=== PATIENT | male | born 1935 | race Caucasian/White ===

== ENCOUNTER 2021-10-19 10:45 | Outpatient (RCR) | payer MEDICARE, BC, SELFPAY | END 2022-01-11 12:08 | disposition home or self-care (01) | PROVIDERS: Visit Provider Student in an Organized Health Care Education/Training Program | DX: E11.40 Type 2 diabetes mellitus with diabetic neuropathy, unspecified (principal); I10 Essential (primary) hypertension; R26.9 Unspecified abnormalities of gait and mobility; M21.379 Foot drop, unspecified foot; Z51.89 Encounter for other specified aftercare | CPT/HCPCS: 97110; 97140 ==

== ENCOUNTER 2021-10-29 15:20 | Emergency (ER) | payer MEDICARE, BC, SELFPAY ==
[2021-10-29 15:35] VITALS: BP 159/86; PULSE 85; RESP 18; TEMP 36.1; O2SAT 94; BMI 31.2
--- NOTE | 2021-10-29 15:44 | CRLHL7_ITS ---
For Patients: As a result of the Cures Act, medical imaging exams and procedure reports are released immediately into your electronic medical record. You may view this report before your referring provider. If you have questions, please contact your health care provider. INDICATION: Fall. TECHNIQUE: Two views of the right forearm. COMPARISON: None. IMPRESSION: There is an acute, comminuted intra-articular fracture of the distal radius. This is impacted dorsally resulting in mild volar apex angulation. The distal right fracture fragment is also displaced dorsally by up to 1 cm. There is also a minimally displaced ulnar styloid fracture. Dictated by Dax Monique MD @ 10/29/2021 5:11:07 PM (Electronically Signed)
--- NOTE | 2021-10-29 15:54 | ED.GENADULT ---
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 He noticed gross deformity and he noted pain. He scraped his finger fingers in the dorsal PIP joint areas and has an abrasion over his ulna and a and medial wrist. There does not appear to be any open wounds. Other than the abrasions. He denies any headache neck pain back pain pelvic pain he has been ambulatory, no other injuries to the elbow or shoulder. He simply lost balance, did not pass out Related Data Home Medications Medication Instructions Recorded Confirmed eszopiclone 3 mg tablet mg 10/29/21 gabapentin 300 mg capsule mg 10/29/21 lisinopril 10 tab 10/29/21 mg-hydrochlorothiazide 12.5 mg tablet metformin 500 mg tablet,extended mg PO 10/29/21 release 24 hr omeprazole 20 mg capsule,delayed mg 10/29/21 release simvastatin 40 mg tablet mg 10/29/21 Allergies Allergy/AdvReac Type Severity Reaction Status Date / Time No Known Drug Allergies Allergy Verified 10/29/21 15:35 Review of Systems Status of ROS: Reports: 6 or more systems reviewed and unremarkable except as noted in History and below [facility] Medical History DM (diabetes mellitus), type 2 Hypertension Neuropathy Surgical History No significant past surgical history Social History Smoking Status: Former smoker What tobacco products do you use: cigarettes Do you use any of these nicotine containing products: None Second hand tobacco smoke exposure: Yes How often do you have a drink containing alcohol: 2-4 times a month How many standard drinks containing alcohol do you have on a typical day: 1 or 2 How often do you have six or more drinks on one occasion: Never AUDIT-C Alcohol total score: 2 Non-prescribed substance use: denies use Exam Narrative: Exam Narrative: Objective: Patient is alert orient x3 very pleasant Vital signs show slightly elevated blood pressure HEENT unremarkable no neck back upper lower extremities extremity symptoms other than his right wrist has a deformity noted there was an abrasion on the medial aspect of the wrist and small tiny abrasions over his finger at the PIP joints on the right hand. No lacerations, no open wounds that are deep. Distal CMS appears normal the right upper extremity and hand he has good strength good motion of his fingers, good radial pulse. He denies abdominal pain pelvic pain lower extremity symptoms. Const: Vital Signs, click to edit/add: Vital Signs - 24 hr 10/29/21 15:35 Temperature 96.9 F L Pulse Rate [Pulse Oximeter] 85 Respiratory Rate 18 Blood Pressure [Le ft Upper Arm] 159/86 H Pulse Oximetry 94 Oxygen Delivery Me thod Room Air Course Vital Signs Vital signs: Initial Vital Signs Temperature 96.9 F L 10/29/21 15:35 Temperature Source Temporal Artery Scan 10/29/21 15:35 Pulse Rate 85 10/29/21 15:35 Pulse Rhythm 10/29/21 15:35 Respiratory Rate 18 10/29/21 15:35 Blood Pressure 159/86 H 10/29/21 15:35 Blood Pressure Mean 110 10/29/21 15:35 Pulse Oximetry 94 10/29/21 15:35 Oxygen Delivery Method 10/29/21 15:35 Vital Signs Temperature 96.9 F L 10/29/21 15:35 Pulse Rate 85 10/29/21 15:35 Respiratory Rate 18 10/29/21 15:35 Blood Pressure 159/86 H 10/29/21 15:35 Pulse Oximetry 94 10/29/21 15:35 Oxygen Delivery Method 10/29/21 15:35 Temperature 96.9 F L 10/29/21 15:35 Pulse Rate 85 10/29/21 15:35 Respiratory Rate 18 10/29/21 15:35 Blood Pressure 159/86 H 10/29/21 15:35 Pulse Oximetry 94 10/29/21 15:35 Oxygen Delivery Method 10/29/21 15:35 Medical Decision Making MDM Narrative Medical decision making narrative: Patient has deformity of his wrist will get a x-ray of his wrist and forearm, will update his tetanus booster given his last was in 2012. Patient likely will need a splint sling and orthopedic followup. Please see addendum. Addendum: The patient by my review has a comminuted distal radial fracture that is dorsally displaced, also has a distal ulnar fracture. After informed consent 1% xylocaine was injected for anesthesia in a hematoma block dorsally over the distal radius fracture, after sterile scrub with Betadine. This covered with a bandage. Patient was given an updated tetanus booster. After wrapping with cast padding a reduction maneuver was attempted with grasped Ms. Hand and exacerbating the fracture direction and then pulling with a little bit of traction he actually tolerated this very well. A thumb spica type splint was placed to hold his reduction in place covering most of his wrist and thumb extending to the elbow. This was covered with Rajiv wrap. Post reduction x-rays pending Addendum: The patient's post reduction films show some straightening of the dorsally angulated distal radial fragment, is comminuted. Needs orthopedic followup in 3-5 days, sling splint, Advil and Tylenol as needed. Given his age I do not want to give him a lot of narcotic medication due the risk of falling apparently also has some peripheral neuropathy and makes balance an issue. I think will do well with anti-inflammatory in the Tylenol and now that it is splinted keep it elevated. Ortho follow up as directed, splint precautions, return to the ED if problems or concerns in the interim. Discharge Plan Discharge Clinical Impression: Fracture of wrist Patient Disposition: Home w/ Parent or Adult Condition: Improved Instructions: Arm Fracture in Adults (ED) Additional Instructions: Orthopedic followup in 3-5 days, splint precautions, use an arm sling to hold the splint. Tylenol Advil as needed for discomfort. Return to ED sooner than orthopedic followup as needed. Activity Level: Light activity Discharge Diet: Regular Prescriptions: No Action simvastatin 40 mg tablet Label Comments: TAKE ONE TABLET BY MOUTH EVERY EVENING gabapentin 300 mg capsule omeprazole 20 mg capsule,delayed release(DR/EC) Label Comments: TAKE ONE CAPSULE BY MOUTH ONCE DAILY lisinopril-hydrochlorothiazide 10-12.5 mg tablet Label Comments: TAKE ONE TABLET BY MOUTH DAILY metformin 500 mg tablet extended release 24 hr PO eszopiclone 3 mg tablet Label Comments: TAKE 1 TABLET (3 MG TOTAL) BY MOUTH IMMEDIATELY BEFORE BEDTIME Stand Alone Forms: [facility] Info Instructions
--- NOTE | 2021-10-29 16:34 | CRLHL7_ITS ---
For Patients: As a result of the Cures Act, medical imaging exams and procedure reports are released immediately into your electronic medical record. You may view this report before your referring provider. If you have questions, please contact your health care provider. INDICATION: Postreduction. TECHNIQUE: Three views of the right wrist. COMPARISON: Earlier today. IMPRESSION: Again seen is a comminuted intra-articular fracture of the distal radius with persistent dorsal displacement of the distal fracture fragment by 1 cm, and persistent dorsal impaction resulting in mild volar apex angulation. Mildly displaced ulnar styloid fracture is also unchanged. Dictated by Dax Monique MD @ 10/29/2021 5:12:40 PM (Electronically Signed)
[2021-10-29] MEDS: ACETAMINOPHEN 500 MG TABLET 1000 MG PO (16:39)
[2021-10-29] MEDS: IBUPROFEN 200 MG TABLET 600 MG PO (16:41)
== END 2021-10-29 17:22 | disposition home or self-care (01) ==
LOC: ED 16:46
PROVIDERS: Emergency Provider Family Medicine
DX: S52.501A Unspecified fracture of the lower end of right radius, initial encounter for closed fracture (principal); S52.601A Unspecified fracture of lower end of right ulna, initial encounter for closed fracture; W01.0XXA Fall on same level from slipping, tripping and stumbling without subsequent striking against object, initial encounter
CPT/HCPCS: 25605; 73090; 73110; 90471; 90714; 99284; A9270

== ENCOUNTER 2021-11-07 06:05 | Day surgery (SDC) | payer MEDICARE, BC, SELFPAY ==
[2021-11-07] VITALS (9 sets, daily range): BP systolic 98–144; BP diastolic 62–94; PULSE 55–72; RESP 14–16; TEMP 36.3; O2SAT 93–97
[2021-11-07] MEDS: LACTATED RINGERS 1000 ML 1,000 ML 100 ML IV (06:30)
[2021-11-07] MEDS: SODIUM CHLORIDE 0.9 % (FLUSH) 10 ML SYRINGE IVF (06:56)
[2021-11-07] MEDS: MIDAZOLAM HCL 1 MG/ML inj IVP (07:07)
[2021-11-07] MEDS: fentaNYL 100 MCG/2 ML inj IVP (07:07)
--- NOTE | 2021-11-07 07:07 | SUR.PREOP ---
TIME?OUT:705? PT/verena cho RN/dr. abram MDA?VERIFICATION?OF?SURGICAL?SITE right radius,?PROCEDURE,?AND?CONSENT OBTAINED?PRIOR?TO?INVASIVE?PROCEDURE.
--- NOTE | 2021-11-07 07:16 | W.PM.NB ---
Nerve Block Nerve Block Time Seen by Provider: 07:08 Date Seen: 11/07/21 Type of block requested by surgeon for post-operative analgesia: axillary Side: right Time out performed: Yes Verification of patient name: Yes Verification of date of : Yes Site marking: site marked Name of person performing procedure: Paul Continuous monitoring Was continuous monitoring of O2 sat, B/P, residential monitor, recorded every 15 minutes?: Yes Procedure Checklist: sterile prep, needles and gloves Ultrasound guided. Images saved: Yes Medications given in 5ml increments after negative aspiration: Ropivicaine %: 0.5 mL: 30 Needle gauge: 22 Patient tolerated procedure well: Yes Additional comments: Needle noted adjacent to nerve Block Charges Block Charge (with Pro Fee): Brachial Plexus Use of Ultrasound Machine for Block: Yes- US Guidance/pain block
--- NOTE | 2021-11-07 07:30 | CRLHL7_ITS ---
For Patients: As a result of the Cures Act, medical imaging exams and procedure reports are released immediately into your electronic medical record. You may view this report before your referring provider. If you have questions, please contact your health care provider. Indication: ORIF RIGHT DISTAL RADIUS Technique: Two fluoroscopic images of the right wrist. Fluoroscopic time is 14.5 seconds. IMPRESSION: Fluoroscopic guidance for open reduction internal fixation distal radial fracture. Dictated by Roney Yun MD @ 11/07/2021 9:09:12 AM (Electronically Signed)
[2021-11-07] MEDS: CEFAZOLIN 2 GM in 0.9 % SODIUM CHLORIDE Mini-bag 100 ML IVPB (07:35)
--- NOTE | 2021-11-07 08:55 | SUR.OPER ---
Patient transfered from [facility] by BED to OR2. Patient was assisted to the OR bed and covered with 2 warm blankets.
--- NOTE | 2021-11-07 08:59 | P.ORPRC_ITS ---
Procedure Note Date of procedure: 11/07/21 Procedure: PREOPERATIVE DIAGNOSES: 1. Right distal radius fracture [intraarticular with comminution and dorsal angulation/displacement] - unstable]-3 part POSTOPERATIVE DIAGNOSES: 1. Right distal radius fracture [intraarticular with comminution and dorsal angulation/displacement] - unstable] -3 part NAME OF OPERATION: 1. Right distal radius open reduction with internal fixation of [intraarticular fracture (3+ parts)] 2. 58792 - intraoperative fluoroscopy up to 1 hour. SURGEON: Gus Bremudez MD POURED CONCRETE WALL TECHNICIAN: Gurdeep Arauz PA-C - Of note, an warehouse administrative assistant was critical for this case to aide in patient positioning, limb manipulation, tissue retraction, closure, and splinting. ANESTHESIA: Supraclavicular block IMPLANTS: Synthes dual column volar locking plate with 2.0 mm distal locking partially-threaded pegs. 2.4 proximally fully-threaded locking screws ( multiple of both). TOURNIQUET: 52 minutes at 250 torr. INDICATIONS: The patient is a pleasant, 86-year-old male who sustained a right wrist injury after a fall. They had difficulty with use of the extremity and deformity. Workup included xrays which revealed an unstable fracture. Given these findings, surgery was recommended to stablize the fracture. FINDINGS: Closed, intra-articular dorsally angulated and displaced distal radius fracture with radial translation as well of the dorsal fragment.. PROCEDURE: Following a thorough discussion of risks, benefits, and alternatives, consent was obtained and the operative extremity was marked. The patient was brought to the operating room and placed supine on the operating table. Induction of anesthesia was achieved. Appropriate time out was performed identifying proper patient, site and procedure. 2 g IV Ancef was administered within 1 hour of incision preoperatively. The right upper extremity was prepped and draped in the appropriate sterile fashion using ChloraPrep prep. The limb was exsanguinated and the tourniquet inflated. A longitudinal incision was made overlying the FCR tendon. Sharp incision through skin and subcutaneous tissue allowed identification of the FCR tendon. The superficial sheath was sharply divided, the tendon retracted ulnarly, and the deep fascial sheath also released. The FPL was retracted ulnarly and the pronator quadratus was sharply released from the radial border of the radius and subperiosteally elevated. The fracture was encountered and cleared of interposed periosteum / fracture hematoma. A reduction was performed and the appropriate plate selected. Temporary stabilization allowed C-arm fluoroscopy to confirm proper fracture reduction and plate positioning. The o blong hole was filled with a nonlocking screw followed by multiple distal locking pegs being careful to keep these in subchondral bone and extraarticular. Finally, the remaining proximal shaft screws were drilled and placed. Fluoroscopic imaging confirmed the improved position and showed the fracture to be stable. At this stage, the wound was thoroughly irrigated with normal saline. Closure performed with 0 Vicryl for the pronator quadratus, followed by deflation of the tourniquet. All major bleeding points were cauterized. Closure was then completed with 3-0 Vicryl for the subcutaneous, and 4-0 statafix for subcuticular closure. Dressings were applied along with a volar/dorsal splint. The patient was awoken from anesthesia and transferred to PACU in stable condition. PLAN: 1. Elevate operative extremity. 2. Ice, acetominphen or ibuprofen PRN. 3. Percocet for pain as needed. 4. Follow up with me in 10-16 days for wound check and splint removal. cast application Until the 3 week meghan then return to clinic for splint/ cast removal, initiation of OT, and wrist brace
--- NOTE | 2021-11-07 09:28 | W.ANESCHARGE ---
Anesthesia Charges Start Date/Time Anesthesia Start Date: 11/07/21 Anesthesia Start Time: 07:32 Stop Date/Time Anesthesia Stop Date: 11/07/21 Anesthesia Stop Time: 09:25 Summary Emergency: No Extremes of Age: Over 70-CPT 52780
--- NOTE | 2021-11-07 10:01 | W.ANESCHARGE ---
Anesthesia Charges Start Date/Time Anesthesia Start Date: 11/07/21 Anesthesia Start Time: 07:32 Stop Date/Time Anesthesia Stop Date: 11/07/21 Anesthesia Stop Time: 09:25 Summary Emergency: No Extremes of Age: Over 70-CPT 34566
== END 2021-11-07 10:54 | disposition home or self-care (01) ==
PROVIDERS: Visit Provider Orthopaedic Surgery Sports Medicine
PROC: (CPT 25575; principal; 2021-11-07 07:30)
DX: S52.571A Other intraarticular fracture of lower end of right radius, initial encounter for closed fracture (principal)
CPT/HCPCS: 25609; 01830; 64415; 73100; 76942; 99100; A4580; C1713; J0690; J1100; J2250; J2370; J2405; J2704; J2795; J3010; J7120

== ENCOUNTER 2022-02-01 12:00 | Outpatient (RCR) | payer MEDICARE, BC, SELFPAY ==
--- NOTE | 2021-12-09 13:53 | OT.OPOE ---
OT Outpatient Ortho Eval OT Outpatient Ortho Eval Start: 12/09/21 07:21 Freq: Status: Active Protocol: Document 12/09/21 13:31 AMB (Rec: 12/09/21 13:39 AMB [id number]) E-signed By Vera Alexander, OTR/L, CLT, ASSOCIATE STORE LEADER OT OP Ortho Eval Details Type Type Eval Complexity Low Insurance Information Insurance Information Medicare B Outpatient History/Precautions Current Condition/Medical Diagnosis Referring Provider Gurdeep Arauz Treatment Diagnosis RUE forearm fx with ORIF Date of Onset DOI:10/29/21, DOS: 11/07/21 Precautions Lifting Restrictions Other Precautions HIGH fall risk secondary to peripheral neuropathy Medical Conditions DM,Metal Implants,Arthritis Other Conditions Medical History (Reviewed 08/17 @ 11:11 by Bianca Avina, RHEA) Bilateral inguinal hernia DM (diabetes mellitus), type 2 ED (erectile dysfunction) GERD (gastroesophageal reflux disease) Hyperlipidemia, unspecified Hypertension Incomplete emptying of bladder Insomnia Left foot drop Major depressive disorder Muscular atrophy Neuropathy Neuropathy, peripheral Surgical History (Reviewed 08/17 @ 11:11 by Bianca Avina RN) H/O right wrist surgery History of cataract removal with insertion of prosthetic lens History of colectomy History of hammertoe correction No significant past surgical history S/P TURP (transurethral resection of prostate) Medical/Functional History Medical History Reviewed Yes Prior Level of Function/Mobility Pt is currently ambulating with a walker as he is not yet able to use a cane in his right hand. Pt does not like using the walker but finds it difficult to use the cane in his left hand. Pt is a high fall risk due to his peripheral neuropathy. Pt states he has had 12 falls in the past 12 months, all related to his neuropathy. Social History Physical Barriers in Home Environment Level, No Step,Elevator Employment Status Retired Oriented Mental Status No Concerns Ortho Subjective Subjective Subjective Pt states he had a fall on 10/29 sustaining the RUE wrist fx, he underwent ORIF on with cast removal on . Pt is wearing a splint and was told he should stay in the splint for 3 weeks after cast removed. Pt states he has minmimal pain but feels so helpless as he is very right hand dominant. It's most frustrating that he cannot use his cane in the RUE. Pt states he's maintained most of his independence with self cares, his helps occasionally. Pt lives in a senior housing complex and discusses frustrations with the strong spring on the door at entry to his appartment as he did have a recent fall when attempting to hold the door and pass through. Encouraged pt to reach out to the landloards to see if this spring can be removed as it is an added fall risk for him, pt agreeable. [ End ] Pain Assessment Pain Present Pain Present Pain Reported Location Right Wrist Intensity Mild Elbow Goniometric Elbow Right Active Flexion (135-150 degrees) 135 Active Extension (0 degrees) 0 H Active Pronation 40 Active Supination 80 ROM Limitations Soft Tissue Tightness,Pain Wrist Goniometric Wrist Right Active Flexion (70-90 degrees) 25 L Active Extension (60-70 degrees) 30 L Active Ulnar Deviation (20-30 degrees) 30 Active Radial Deviation (15-20 degrees) 10 L ROM Limitations Soft Tissue Tightness,Pain OT Objective Data Hand Hand Dominance Right OT Problems Problems Problems Decreased Strength,Decreased Range of Motion,Decreased Dexterity,Decreased Fine Motor ,Decreased Coordination, Lifting,Gripping,Pinching Other Problems Writing,Opening Containers, Dressing,Computer Patient Potential Good Assessment Assessment Assessment Pt reports to OT with complaints of weakness, pain, limited ROM in RUE secondary to forearm fx with ORIF on 02/16. Pt states these limitations have been very difficult for him as it affects his mobility, relies on his RUE to use cane. Pt also reports difficulty with self care tasks, writing, typing, cooking, etc. Pt will benefit from skilled OT intervention to address impairments and restore full, pain-free use of his RUE. OT Outpatient Treatment Plan Ortho Barriers Barriers to Goal Attainment Multiple co-morbidities Occupational Therapy Treatment Plan - OP Potential Rehabilitation Potential Good Set Goals Goals Set with Patient Yes Goals Goals 1. Pt will be independent and compliant with HEP in order to resume full, pain-free use of the involved UE. 3 weeks 2. Pt will demonstrate full, pain-free AROM of the involved UE in order to improve ability to grasp and hold. 6 weeks 3. Pt will demonstrate pain- free eligibility services representative and pinch strength comparable to the uninvolved side in order to improve functional grasp, hold, reach, and lifting ability needed to complete self-care, leisure tasks, and to be able to use his cane in his RUE. 8 weeks. Target Date Treatment Plan Treatment Plan Evaluation,Edema Control,Joint Mobilization,Manual Therapy, Wound Care/Scar Management, Therapeutic Exercise, Therapeutic Activities,Self- Care/Home Management Expected Frequency 1-2x Week Expected Duration 8-10 Weeks Certification Certification I Certify That: Therapy Services Provided Recertification Information Recertification Information Initial Certification Date 12/09/21 Recertification Due Date 03/10/22 Rehabilitation Potential Good Continued Plan of Care and Interventions MT, TE, TA, self care Provider Signature Shows Agreement With POC & Medical Necessity Physician Comment/Change Comment or Changes Physician NPI Number #
--- NOTE | 2022-02-01 13:00 | PT.OPEX ---
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 He wears orthotics, uses a quad cane, but is feeling more and more unsteady because his left foot collapses into inversion easily. He has decreased mobility in his left ankle compared to his right . he has weakness in his left ankle dorsiflexors and evertors. pts old orthotics are worn and he would benefit from skilled PT for custom orthotic fabrication. Plan of Care Rehabilitation Potential Fair Physical Therapy Goals 1. in 3 wks pt will be comfortable and stable walking while wearing his new orthotics while using his quad cane Coordination/Communication With Referral Source Treatment Plan/Direct Interventions Orthotics/Braces Frequency/Duration 1-2 visits Patient Will Be Discharged From Therapy Independently Progressing Evaluation Billing Complexity Moderate Certification Information Initial Certification Date 02/01/22 Ending Certification Date 05/01/22 Provider Signature Shows Agreement With POC & Medical Necessity Physician Signature & Date Requested Please Sign/Date Here Physician Comment/Change : Physician NPI Number #
== END 2022-04-05 14:38 | disposition home or self-care (01) ==
PROVIDERS: Visit Provider Physician Assistant Surgical
DX: S52.91XD Unspecified fracture of right forearm, subsequent encounter for closed fracture with routine healing (principal); M21.952 Unspecified acquired deformity of left thigh; Z51.89 Encounter for other specified aftercare
CPT/HCPCS: 97110; 97140; 97162; 97165; 97535; 97760; X5282

== ENCOUNTER 2022-05-12 18:14 | Outpatient (CLI) | payer MEDICARE, BC, SELFPAY | END 2022-05-12 18:15 | disposition home or self-care (01) | LOC: AMB 05-15 10:40 | PROVIDERS: Visit Provider Family Medicine | DX: R53.1 Weakness (principal); M25.60 Stiffness of unspecified joint, not elsewhere classified | CPT/HCPCS: A0425; A0429 ==

== ENCOUNTER 2022-05-12 18:34 | Emergency (ER) | payer MEDICARE, BC, SELFPAY ==
[2022-05-12 18:43] VITALS: BP 146/73; PULSE 77; RESP 18; TEMP 36.5; O2SAT 95
--- NOTE | 2022-05-12 19:19 | CRLHL7_ITS ---
For Patients: As a result of the Cures Act, medical imaging exams and procedure reports are released immediately into your electronic medical record. You may view this report before your referring provider. If you have questions, please contact your health care provider. INDICATION: Ataxia, frequent falls TECHNIQUE: CT head without contrast. COMPARISON: FINDINGS: CSF spaces: Within normal limits for age. Brain parenchyma: The lucero-white differentiation is normal. No sign of mass, hemorrhage, or midline shift. Skull base and calvarium: The visualized paranasal sinuses and mastoid air cells demonstrate no acute or significant findings. The visualized orbits are grossly unremarkable. No skull fractures. IMPRESSION: Unremarkable noncontrast head CT. Dictated by Roney Gonzalez MD @ 05/12/2022 7:43:21 PM Please note that all CT scans at this facility use dose modulation, iterative reconstruction, and/or weight-based dosing when appropriate to reduce radiation dose to as low as reasonably achievable. Dictated by: Roney Gonzalez MD @ 05/12/2022 19:44:39 (Electronically Signed)
--- NOTE | 2022-05-12 19:21 | ED_ITS ---
HPI - General Adult General Chief complaint: Weakness Stated complaint: Weakness Time Seen by Provider: 05/12/22 18:50 History of Present Illness HPI narrative: This 86-year-old male comes in with his stating that he has stiffness that is been worsening over the past year or more. He does not describe any particular injury event. He has been seeing his primary physician regarding this and did receive an injection in his left shoulder a day or 2 ago. He states that he has had frequent falls. His primary physician reports that these of occurred on average about once a month. He states that he feels unsafe at home and has trouble getting up to ambulate not because of weakness but because of stiffness. He does have a history of severe lumbar spinal stenosis. He was recently prescribed Flexeril. Related Data Home Medications Medication Instructions Recorded Confirmed eszopiclone 3 mg tablet mg 10/29/21 12/27/21 lisinopril 10 tab 10/29/21 12/27/21 mg-hydrochlorothiazide 12.5 mg tablet metformin 500 mg tablet,extended mg PO 10/29/21 12/27/21 release 24 hr eszopiclone 3 mg tablet (Lunesta) 3 mg PO HS PRN 11/04/21 12/27/21 gabapentin 300 mg capsule 300 mg PO TID 11/04/21 12/27/21 (Neurontin) multivitamin 1 tab PO DAILY 11/04/21 12/27/21 omeprazole 20 mg capsule,delayed 20 mg PO DAILY 11/04/21 12/27/21 release simvastatin 40 mg tablet (Zocor) 40 mg PO DAILY 11/04/21 12/27/21 Allergies Allergy/AdvReac Type Severity Reaction Status Date / Time duloxetine Allergy emotional Verified 12/01/21 11:11 irritability metronidazole Allergy severe GI Verified 12/01/21 11:11 irritability trazodone Allergy Anxiety Verified 12/01/21 11:11 Review of Systems Status of ROS: Reports: 10 or more systems reviewed and unremarkable except as noted in History and below Narrative: Constitutional: No fevers, no weight gain or loss. Eyes: No discharge. No vision changes. HENT: No congestion, no sore throat, no ear pain. Cardiovascular: No chest pain, no palpitations. Respiratory: No shortness of breath, no wheezes, no cough. Gastrointestinal: No abdominal pain, no vomiting, no diarrhea. Genitourinary: No dysuria, no hematuria. Musculoskeletal: Normal range of motion. Skin: No rashes, no pruritis. Neurological: No dizziness, weakness, sensory change, speech change. He states that it is not weakness but it is stiffness that keeps him from a safe ability to ambulate. Endo/Heme/Allergies: No bruising or bleeding. No polydipsia. Pysch: no suicidality, no anxiety, no insomnia. All other systems reviewed and are negative. [facility] Medical History Bilateral inguinal hernia DM (diabetes mellitus), type 2 ED (erectile dysfunction) GERD (gastroesophageal reflux disease) Hyperlipidemia, unspecified Hypertension Incomplete emptying of bladder Insomnia Left foot drop Major depressive disorder Muscular atrophy Neuropathy Neuropathy, peripheral Surgical History H/O right wrist surgery History of cataract removal with insertion of prosthetic lens History of colectomy History of hammertoe correction No significant past surgical history S/P TURP (transurethral resection of prostate) Social History (Reviewed 12/27/21 @ 13:07 by Heather Hubbard ~ [facility], [facility]) Smoking Status: Former smoker What tobacco products do you use: cigarettes Smoking quit date/years: >15 years ago Do you use any of these nicotine containing products: None Second hand tobacco smoke exposure: Yes How often do you have a drink containing alcohol: 2-4 times a month How many standard drinks containing alcohol do you have on a typical day: 1 or 2 How often do you have six or more drinks on one occasion: Never AUDIT-C Alcohol total score: 2 Non-prescribed substance use: denies use Caffeine: Yes service: No Exam Narrative: Exam Narrative: Constitutional: Well-developed, well-nourished, no acute distress. HEENT: Normocephalic, atraumatic. Neck: Normal range of motion. Nontender. Supple. Heart: Regular. No murmurs. Normal rate. Intact distal pulses. Lungs: Clear to auscultation. No chest discomfort. No wheezes, rhonchi, or rales. Abdomen: Normal bowel sounds. Nontender. No rebound tenderness. Genitalia: Deferred. Back: No midline tenderness. Extremities: Normal range of motion. No injury. Left shoulder pain from recent intra-articular injection. Skin: Intact. No rash. Warm. No erythema or pallor. Neurologic: No altered sensation. No unilateral weakness. Alert and oriented. He is able to raise each leg from the bed. Speech is normal. No facial asymmet ry. Psychiatric: No suicidality. No anxiety or depression. No insomnia. Nursing notes and vitals signs are reviewed. Const: Vital Signs, click to edit/add: Vital Signs - 24 hr 05/12/22 18:43 05/12/22 20:04 Temperature 97.7 F Pulse Rate [Right Pulse Oximeter] 77 68 Respiratory Rate 18 16 Blood Pressure [Ri ght Upper Arm] 146/73 H 108/68 Pulse Oximetry 95 95 Oxygen Delivery Me thod Room Air Room Air Course Vital Signs Vital signs: Initial Vital Signs Temperature 97.7 F 05/12/22 18:43 Temperature Source Temporal Artery Scan 05/12/22 18:43 Pulse Rate 77 05/12/22 18:43 Respiratory Rate 18 05/12/22 18:43 Blood Pressure 146/73 H 05/12/22 18:43 Blood Pressure Mean 97 05/12/22 18:43 Blood Pressure Position Sitting 05/12/22 18:43 Pulse Oximetry 95 05/12/22 18:43 Oxygen Delivery Method 05/12/22 18:43 Vital Signs Temperature 97.7 F 05/12/22 18:43 Pulse Rate 77 05/12/22 18:43 Respiratory Rate 18 05/12/22 18:43 Blood Pressure 146/73 H 05/12/22 18:43 Pulse Oximetry 95 05/12/22 18:43 Oxygen Delivery Method 05/12/22 18:43 Temperature 97.7 F 05/12/22 18:43 Pulse Rate 68 05/12/22 20:04 Respiratory Rate 16 05/12/22 20:04 Blood Pressure 108/68 05/12/22 20:04 Pulse Oximetry 95 05/12/22 20:04 Oxygen Delivery Method 05/12/22 20:04 Medical Decision Making MDM Narrative Medical decision making narrative: This patient comes in reporting stiffness and feeling unsafe at home. He does have history of falls and over the past year has fallen about once a month. He did have an injection in his left shoulder a couple days ago and since then feels all the more vulnerable oral toward falls. He feels that he cannot go home under these circumstances. CT scan of the head shows no acute findings. Lab results also are reassuring. I did speak with Dr. Veronica about an observation type admission. She is requesting some further lab results. This is pending at the end of my shift. Additionally the nurses making arrangements to see how well he in fact can ambulate. Dr. Veronica will follow-up with these findings and either admit him or he will need to go home. Lab Data Labs: Lab Results 05/12/22 05/12/22 Range/Units 19:19 19:48 WBC 7.45 (4.50-11.00) K/uL RBC 4.52 (4.30-5.90) m/uL Hgb 12.3 L (13.5-17.5) gm/dL Hct 36.6 L (37.0-53.0) % MCV 81 (80-100) fL MCH 27 (26-34) pg MCHC 34 (32-36) gm/dL RDW Coeff of Tamir 13.6 (11.5-15.5) % Plt Count 272 (140-440) K/uL Neut % (Auto) 71.6 (42.0-72.0) % Lymph % (Auto) 20.3 (20-44) % [place] % (Auto) 6.8 (0.0-11.0) % Eos % (Auto) 0.7 (0.0-7.0) % Baso % (Auto) 0.3 (0.0-3.0) % Neut # (Auto) 5.34 (1.7-7.0) K/uL Lymph # (Auto) 1.51 (0.90-2.90) K/uL [place] # (Auto) 0.50 (0.00-0.90) K/UL Eos # (Auto) 0.05 (0.00-0.50) K/uL Baso # (Auto) 0.02 (0.00-0.30) K/uL Sodium 132 L (135-149) mmol/L Potassium 4.2 (3.6-5.1) mmol/L Chloride 98 (96-114) mmol/L Carbon Dioxide 25 (20-32) mmol/L BUN 16 (7-30) mg/dL Creatinine 0.7 (0.5-1.5) mg/dL Estimated GFR 90 ml/min Glucose 152 H (60-115) mg/dL Calcium 9.4 (8.4-10.6) mg/dL Imaging Data CT scan - head: Radiologist's impression: Unremarkable noncontrast head CT. Discharge Plan Discharge Clinical Impression: Ataxia Condition: Unchanged Prescriptions: No Action eszopiclone [Lunesta] 3 mg tablet 3 mg PO HS PRN gabapentin [Neurontin] 300 mg capsule 300 mg PO TID Rx Instructions: 900mg in the morning and evening and 600mg in the afternoon multivitamin Tablet 1 tab PO DAILY omeprazole 20 mg capsule,delayed release(DR/EC) 20 mg PO DAILY simvastatin [Zocor] 40 mg tablet 40 mg PO DAILY lisinopril-hydrochlorothiazide 10-12.5 mg tablet Label Comments: TAKE ONE TABLET BY MOUTH DAILY metformin 500 mg tablet extended release 24 hr PO eszopiclone 3 mg tablet Label Comments: TAKE 1 TABLET (3 MG TOTAL) BY MOUTH IMMEDIATELY BEFORE BEDTIME Follow Up/Referrals: Provider,Not a Local [Primary Care Provider] -
[2022-05-12 19:53] LABS: Basophils Absolute Auto 0.02 K/uL (0.00-0.30); Basophils Percent Auto 0.3 % (0.0-3.0); Eosinophils Absolute Auto 0.05 K/uL (0.00-0.50); Eosinophils Percent Auto 0.7 % (0.0-7.0); Hematocrit 36.6 % (37.0-53.0); Hemoglobin* 12.3 gm/dL (13.5-17.5); Immature Granulocytes Abs Auto 0.02 K/uL (0.00-0.30); Immature Granulocytes Pct Auto 0.3 %; Lymphocytes Absolute Auto 1.51 K/uL (0.90-2.90); Lymphocytes Percent Auto 20.3 % (20-44); Mean Corpuscular HGB Conc 34 gm/dL (32-36); Mean Corpuscular Hemoglobin 27 pg (26-34); Mean Corpuscular Volume 81 fL (80-100); Monocytes Percent Auto 6.8 % (0.0-11.0); Neutrophils Absolute Auto 5.34 K/uL (1.7-7.0); Neutrophils Percent Auto 71.6 % (42.0-72.0); Platelet Count* 272 K/uL (140-440); RDW Coefficient of Variation % 13.6 % (11.5-15.5); Red Blood Count 4.52 m/uL (4.30-5.90); White Blood Count* 7.45 K/uL (4.50-11.00)
[2022-05-12 20:04] VITALS: BP 108/68; PULSE 68; RESP 16; O2SAT 95
[2022-05-12 20:05] LABS: Chloride* 98 mmol/L (96-114); Potassium* 4.2 mmol/L (3.6-5.1); Sodium* 132 mmol/L (135-149)
[2022-05-12 20:08] LABS: Blood Urea Nitrogen* 16 mg/dL (7-30); Carbon Dioxide* 25 mmol/L (20-32); Creatinine* 0.7 mg/dL (0.5-1.5); Estimated Glomerular Filt Rate 90 ml/min
[2022-05-12 20:09] LABS: Calcium* 9.4 mg/dL (8.4-10.6); Glucose* 152 mg/dL (60-115)
[2022-05-12 20:12] LABS: Slide Review Reflex No
[2022-05-12 21:00] LABS: Albumin* 4.2 g/dL (3.3-5.0)
[2022-05-12 21:02] VITALS: BP 108/68; PULSE 66; RESP 16; O2SAT 95
[2022-05-12 21:03] LABS: Alanine Aminotransferase* 24 U/L (4-50); Alkaline Phosphatase* 69 U/L (40-150); Aspartate Amino Transferase* 24 U/L (12-35); Bilirubin Direct* 0.2 mg/dL (0.0-0.5); Bilirubin Total* 0.3 mg/dL (0.1-1.5); Total Protein* 7.2 g/dL (6.0-8.3)
[2022-05-12 21:06] LABS: C Reactive Protein* 2.3 mg/dL (0.5-1.0)
--- NOTE | 2022-05-12 21:13 | ED.NURSE ---
Patient assisted with SBA, walker and gb to ambulate the nursing unit. He tolerated well.
[2022-05-12 21:44] LABS: SARS PCR* Negative SARS-CoV-2 (Negative)
[2022-05-12 22:11] LABS: Vitamin B12* 381 pg/mL (243-894)
[2022-05-12 22:20] LABS: Erythrocyte SedimentationRate* 20 mm/hr (2-15)
== END 2022-05-12 21:38 | disposition home or self-care (01) ==
PROVIDERS: Family Medicine; Emergency Provider Emergency Medicine Emergency Medical Services
DX: R27.0 Ataxia, unspecified (principal)
CPT/HCPCS: 36415; 70450; 80048; 80076; 82607; 82746; 85025; 85651; 86140; 87635; 99284; 99285

== ENCOUNTER 2022-05-19 13:50 | Outpatient (RCR) | payer SELFPAY | END 2023-04-27 08:38 | disposition home or self-care (01) | LOC: MOW 13:50 | PROVIDERS: Visit Provider Family Medicine | DX: Z76.0 Encounter for issue of repeat prescription (principal) | CPT/HCPCS: S5170 ==

== ENCOUNTER 2022-11-07 13:24 | Outpatient (CLI) | payer MEDICARE, BC, SELFPAY | END 2022-11-07 13:25 | disposition home or self-care (01) | LOC: RAD 13:25 | PROVIDERS: PCP Family Medicine; Visit Provider Family Medicine | DX: M54.16 Radiculopathy, lumbar region (principal); M48.062 Spinal stenosis, lumbar region with neurogenic claudication; M51.36 Other intervertebral disc degeneration, lumbar region | CPT/HCPCS: 62323; J0702; Q9966 ==

== ENCOUNTER 2022-11-09 13:28 | Outpatient (CLI) | payer MEDICARE, BC, SELFPAY ==
--- NOTE | 2022-11-09 13:45 | CRLHL7_ITS ---
For Patients: As a result of the Century Cures Act, medical imaging exams and procedure reports are released immediately into your electronic medical record. You may view this report before your referring provider. If you have questions, please contact your health care provider. Indication: Myelopathy, leg weakness Technique: Multiplanar, multisequence MRI of the thoracic spine, obtained without contrast. Comparison: No relevant comparison studies available at this institution. Findings: Slightly exaggerated upper thoracic kyphosis. Mild chronic anterior wedge configuration of a few thoracic vertebrae, most notably T1 and T2. No acute osseus abnormality. Presumed bone island within the T4 vertebral body. No suspicious marrow lesion. Mild spondylosis, including scattered facet arthropathy, a few degenerative Schmorl`s nodes, as well as a shallow left central disc protrusion and T8-9. No evidence of significant neural foraminal or spinal canal stenosis. The visualized spinal cord appears normal in course, caliber, and intrinsic signal. A circumscribed cystic structure is noted ventral to the T3/T4 vertebral bodies, interposed between the esophagus and descending aortic arch measuring 1.5 x 2.1 by 2.5 cm AP/TR/CC (series 6, image 20; series 5, image 11). Impression: 1. Mild thoracic spondylosis, without evidence of significant neural foraminal or spinal canal stenosis. 2. Unremarkable cord signal. 3. Circumscribed 2.5 cm cystic-appearing structure interposed between the esophagus and descending aortic arch, ventral to the T3/T4 vertebral bodies, indeterminate, but potentially representing esophageal duplication cyst. Contrast enhanced CT chest could be obtained for further characterization if clinically indicated. Dictated by Mae Phillips MD @ 11/10/2022 10:30:32 AM (Electronically Signed)
--- NOTE | 2022-11-09 14:30 | CRLHL7_ITS ---
For Patients: As a result of the 21st Century Cures Act, medical imaging exams and procedure reports are released immediately into your electronic medical record. You may view this report before your referring provider. If you have questions, please contact your health care provider. Indication: Leg weakness, myelopathy Technique: Multiplanar, multisequence, MRI of the lumbar spine, obtained without contrast. Comparison: Same-day MRI thoracic spine Findings: Slight lumbar dextroconvex curvature, potentially positional. Preserved lumbar lordosis. No significant spondylolisthesis. Lumbar vertebral body heights are grossly maintained. No suspicious marrow lesion. Focal edematous marrow signal changes at the right L4 and L5 articular pillars, with associated right asymmetric facet arthropathy and trace joint effusion. Additional fluid signal within the interspinous space, with adjacent subchondral cystic changes and minor bony edema. Conus medullaris terminates at L1. No suspicious findings identified within the paraspinal soft tissues. Incidental presumed bilateral renal cysts. Minor degenerative changes at the included SI joints. T12-L1: No significant neural foraminal or spinal canal stenosis. L1-L2: Mild diffuse disc bulge, mild facet arthropathy. Mild bilateral neural foraminal narrowing, left worse than right. No spinal canal stenosis. L2-L3: Mild diffuse disc bulge, mild facet arthropathy. Mild bilateral neural foraminal narrowing. Mild left lateral recess narrowing without significant central spinal canal stenosis. L3-L4: Mild diffuse disc bulge, mild facet arthropathy. Mild bilateral neural foraminal narrowing. Bilateral lateral recess narrowing without significant central spinal canal stenosis. L4-L5: Diffuse disc bulge, right asymmetric facet arthropathy, ligamentum flavum laxity. Mild left, moderate right neural foraminal stenosis. Moderately severe spinal canal stenosis with potential descending cauda equina nerve root impingement. L5-S1: Diffuse disc-osteophyte complex, moderate facet arthropathy. Mild-moderate left, moderate right neural foraminal stenosis. Left lateral recess stenosis with potential descending left S1 nerve root impingement. No central spinal canal stenosis. Impression: 1. Right asymmetric L4-5 facet arthropathy, with associated articular pillar edema and trace joint effusion compatible with inflammatory/stress reaction. 2. L4-5 interspinous space bursal fluid and adjacent subchondral cystic changes/bony edema, compatible with Baastrup`s disease. 3. At L4-5, moderate right neural foraminal stenosis and moderately severe spinal canal stenosis, with potential descending cauda equina nerve root impingement. 4. At L5-S1, mild-moderate left and moderate right neural foraminal stenosis, with left lateral recess stenosis potentially impinging the descending left S1 nerve root. Dictated by Mae Phillips MD @ 11/10/2022 10:40:02 AM (Electronically Signed)
== END 2022-11-09 13:29 | disposition home or self-care (01) ==
LOC: MRI 13:29
PROVIDERS: PCP Family Medicine; Visit Provider Psychiatry & Neurology Neurology
DX: M51.06 Intervertebral disc disorders with myelopathy, lumbar region (principal); M48.061 Spinal stenosis, lumbar region without neurogenic claudication; M48.07 Spinal stenosis, lumbosacral region; M62.81 Muscle weakness (generalized)
CPT/HCPCS: 72146; 72148

== ENCOUNTER 2023-11-06 10:54 | Outpatient (CLI) | payer MEDICARE, BC, SELFPAY | END 2023-11-06 10:55 | disposition home or self-care (01) | LOC: INJ CL 10:55 | PROVIDERS: PCP Family Medicine; Visit Provider Family Medicine | DX: M54.16 Radiculopathy, lumbar region (principal); M51.36 Other intervertebral disc degeneration, lumbar region | CPT/HCPCS: 62323; J0702; Q9966 ==

== ENCOUNTER 2024-02-29 13:20 | Inpatient (IN) | payer MEDICARE, BC, SELFPAY ==
[2024-02-29] VITALS (30 sets, daily range): BP systolic 95–127; BP diastolic 65–95; PULSE 74–90; RESP 20; TEMP 36.2–36.8; O2SAT 91–96; BMI 27.1
--- OUTSIDE RECORDS SUMMARY | 2024-02-29 13:22 | XMS_ITS | Clinical Summary ---
Author Organization [facility] Address [address] [place] [address] Care Team Providers Care Health Sciences Department Chair Name Role Phone Elsewhere, Pcp Primary Care Provider Unavailabl e Source Comments Patient records contain information from all sites at [facility]. For routine questions regarding patient records, call [phone] during business hours, M-F 8:00 AM - 5:00 PM Central Time. Record requests for emergency care only can be directed to [phone] at any time.[facility] Allergies Active Allergy Reactions Criticality Noted Date Comments Duloxetine Other (see comments) Medium 06/08/2003 Emotional irritability Metronidazole Other (see comments) Medium 03/13/2012 severe gi irritability Trazodone Anxiety Medium 09/24/2015 Medications * This document contains information received from the source organization and may not represent a complete record from that organization. MULTIVITAMIN ORAL Take 1 tablet by mouth daily. 1 Active acetaminophen (TYLENOL) 500 mg tablet Take 1-2 tablets by mouth as needed. 6 Active ibuprofen (ADVIL,MOTRIN) 200 mg tablet Take 200 mg by mouth every 6 (six) hours as needed for pain. Active lisinopril-hydr oCHLOROthiazide (PRINZIDE,ZESTO RETIC) 20-12.5 mg per tablet Take 1 tablet by mouth daily. Prescribed by local provider Active metFORMIN XR (GLUCOPHAGE-XR) 500 mg 24 hr tablet Take 1,000 mg by mouth 2 (two) times a day. 2 Active gabapentin (NEURONTIN) 300 mg capsuleIndicati ons:Neuropathy Peripheral Take 3 capsules (900 mg total) by mouth 3 (three) times a day. Patient takes 3 capsules (900 mg) in the morning, 2 capsules (600 mg) in the afternoon, and 3 capsules (900 mg) in the evening for a total of 8 capsules per day. 240 capsule 2 Active omeprazole (PriLOSEC) [address] capsule TAKE ONE CAPSULE BY MOUTH ONCE DAILY 90 capsule 3 Active simvastatin (ZOCOR) 40 mg tablet TAKE ONE TABLET BY MOUTH EVERY EVENING 90 tablet 3 Active cyclobenzaprine (FLEXERIL) 10 mg tablet as needed for muscle spasms. Active cholecalciferol , vitamin D3, 25 mcg (1,000 Unit) tablet Take 1 tablet by mouth daily. 4 Active eszopiclone (Lunesta) 3 mg tablet TAKE 1 TABLET BY MOUTH IMMEDIATELY BEFORE BEDTIME, AND TAKE 1 MORE TABLET NEEDED FOR SLEEP MAINTENANCE. 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 12/02/2018 Muscle Wasting And Atrophy N ot Elsewhere Classified Left Thigh 04/19/2018 Insomnia 12/05/2017 Hernia Inguinal Bilateral 12/05/2017 Hematuria Gross 07/25/2017 Neuropathy Peripheral 06/28/2016 Diabetes Mellitus Type 2 12/23/2009 Hyperlipidemia 06/09/2008 Depression Major 01/03/2007 Gastroesophageal Reflux Disease NOS 09/28/2006 Primary Malignant Neoplasm Of Prostate 7 Incomplete Bladder Emptying 01/08/2006 Hypertension Essential Primary 12/12/2005 Dysfunction Erectile 11/23/2004 Resolved Problems Problem Noted Date Diagnosed Date Resolved Date Hyperparathyroidism Primary 12/23/2004 12/02/2018 Immunizations Name Administration Dates Next Due HZV (ZOSTAVAX) 05/22/2007 HepA / HepB 04/28/2021(Deferred: Other - Will check with the pcp) Influenza Split 01/26/2011,11/26/2008 Influenza TIV (IM) 02/13/2006,12/23/2004, 004 Influenza, Quadrivalent, Adj uvanted, Preservative Free 11/26/2020 Influenza, Seasonal, Injectable 12/23/2004 Influenza, Unspecified 01/26/2011,11/26/2008 PCV13 04/10/2014 PPSV23 11/23/2004,12/25/2002 RZV (SHINGRIX) 04/28/2021(Deferred: Other - Pt will get locally at home) Td Preservative Free (TENIVA C, DECAVAC) 11/23/2004 Tdap 03/13/2012 influenza trivalent high dos e (HD)(PF) 02/12/2019,02/04/2018,07/25/2017(Deferr ed: Other - Received in December 2016),12/02/2016,12/18/2015,01/08/2015, 12/09/2013,01/01/2013,01/24/2012,2009 influenza trivalent vaccine (6 months and older)(PF) 02/02/2011,02/01/2009,12/31/2007,2006 influenza vaccine QV(FLUBLOK ) (18 years or older) (PF) 11/28/2019 Family History Medical History Relation Name Comments Alcohol abuse Brother Noel Irizarry Alcohol abuse Father Shyam Dementia Father Shyam Hypertension Mother ingrid irizarry Relation Name Status Comments Brother Noel Irizarry Father Shyam Mother ingrid irizarry Social History Tobacco Use Types Packs/Day Years Used Date Smoking Tobacco: Former Cigarettes 0.5 15 0 02/26/1953 - 02/27/1968 Smokeless Tobacco: Never Tobacco Cessation:Counseling Given: Not Answered Alcohol Use Standard Drinks/Week Comments Yes 2 (1 standard drink = 0.6 oz pur e alcohol) Humiliation, Afraid, Rape, and Kick questionnair e Answer Date Recorded Within the last year, have y ou been afraid of your partner or ex-partner? No 04/28/2021 Within the last year, have y ou been humiliated or emotionally abused in other ways by your partner or ex-partner? No Within the last year, have y ou been kicked, hit, slapped, or otherwise physically hurt by your partner or ex-partner? No 04/28/2021 Within the last year, have y ou been raped or forced to have any kind of sexual activity by your partner or ex-partner? No 04/28/2021 Social Connection and Isolat ion Panel [NHANES] Answer Date Recorded In a typical week, how many times do you talk on the phone with family, friends, or neighbors? More than three times a week 04/28/2021 How often do you get togethe r with friends or relatives? Three times a week 04/28/2021 How often do you attend chur ch or restorationist services? Never 04/28/2021 Do you belong to any clubs o r organizations such as uatsdin groups, unions, fraternal or athletic groups, or school groups? Yes 04/28/2021 How often do you attend meet ings of the clubs or organizations you belong to? More than 4 times per year 04/28/2021 Are you , , di vorced, , never , or living with a partner? 04/28/2021 AUDIT-C Answer Date Recorded Q1: How often do you have a drink containing alc ohol? 2-4 times a month 04/28/2021 Q2: How many drinks containi ng alcohol do you have on a typical day when you are drinking? 1 or 2 04/28/2021 Q3: How often do you have si x or more drinks on one occasion? Never 04/28/2021 Overall Financial Resource Strain (CARDIA) Answe r Date Recorded How hard is it for you to pa y for the very basics like food, housing, medical care, and heating? Not hard at all 04/28/2021 PHQ-2 Answer Date Recorded PHQ-2 Score 2 04/28/2021 [facility] - Occupational Stress Questionnaire Answer Date Recorded Do you feel stress - tense, restless, nervous, or anxious, or unable to sleep at night because your mind is troubled all the time - these days? To some extent 04/28/2021 Exercise Vital Sign Answer Date Recorde d On average, how many days pe r week do you engage in moderate to strenuous exercise (like a brisk walk)? 2 days 04/28/2021 On average, how many minutes do you engage in exercise at this level? 20 min 04/28/2021 Hunger Vital Sign Answer Date Recorded Within the past 12 months, y ou worried that your food would run out before you got the money to buy more. Never true 04/29/19 22 Within the past 12 months, t he food you bought just didn't last and you didn't have money to get more. Never true 04/28/2021 PRAPARE - Transportation Answer Date Re corded In the past 12 months, has l ack of transportation kept you from medical appointments or from getting medications? No 04/2021 In the past 12 months, has l ack of transportation kept you from meetings, work, or from getting things needed for daily living? No 04/28/2021 Housing Stability Vital Sign Answer Jovani e Recorded In the last 12 months, was t here a time when you were not able to pay the mortgage or rent on time? No 04/28/2021 In the last 12 months, how many places have you lived? 1 04/28/2021 In the last 12 months, was t here a time when you did not have a steady place to sleep or slept in a group home (including now)? No 04/28/2021 Nutrition Answer Date Recorded On average, how many serving s of fruits and vegetables do you eat per day (serving size is equal to 1 cup or approximately the size of a tennis ball)? 2-3 04/28/2021 Dental Answer Date Recorded Dental: Regular Dentist Yes 04/15/19 Employment Answer Date Recorded Employment status Retired 04/28/2021 Education Answer Date Recorded What is the highest level of school you have completed or the highest degree you have received? Doctorate 12/02/2018 Sex and Gender Information Value Date Recorded Sex Assigned at Male 09/05/2017 2:01 PM CDT Legal Sex Male 9:30 AM MAIL LIST PROCESSOR Gender Identity Male 09/05/2017 2:01 PM CDT Sexual Orientation Straight 09/05/2017 2: 01 PM CDT Last Filed Vital Signs Vital Sign Reading Time Taken Comments Blood Pressure 109/67 04/28/2021 1:13 PM MAIL LIST PROCESSOR Pulse 79 04/28/2021 1:13 PM MAIL LIST PROCESSOR Temperature 35.6 C (96.1 F) 10/20/2020 2:58 PM CDT Respiratory Rate - - Oxygen Saturation - - Inhaled Oxygen Concentration - - Weight 91.9 kg (202 lb 9.6 oz) 04/28/2021 1:13 P M MAIL LIST PROCESSOR Height 180.3 cm (5' 11) 04/28/2021 1:13 PM MAIL LIST PROCESSOR Body Mass Index 28.26 04/28/2021 1:13 PM MAIL LIST PROCESSOR Plan of Treatment Health Maintenance Due Date Last Done Comments Depression Monitoring (PHQ-9) 1935 Hepatitis B Vaccines (1 of 3 - Risk 3-dose series) 1996 RSV vaccine - (32-36 weeks) or 60+ years (1 - 1-dose 75+ series) 06/28/2011 Dilated Eye Exam 12/09/2011 12/08/2010 (Per formed elsewhere) Diabetic Office Visit with Foot Exam 10/20/2021 10/20/2020, 12/02/2018, 11/01/2017 Urine Albumin 04/28/2022 04/28/2021, 0202/2020, 12/02/2018, Additional history exists Zoster Vaccines (3 of 3) 09/26/2022 08/01/2022, 04/27 Depression Monitoring (PHQ-9 for quality tracking) 02/26/2023 Fall Risk Screen (Annual) 02/26/2023 COVID-19 Vaccine ( season) 2023 12/15/2022, 08/01/2022, 12/08/2021, Additional history exists Hemoglobin A1C 11/25/2023 05/25/2023, 08/0 02/2022, 05/19/2022, Additional history exists Influenza Vaccine (#1) 2023 , 12/08/2021, 11/26/2020, Additional history exists Creatinine Level (Kidney Function Test) 05/24/2024 05/25/2023, 09/26/2022, 05/19/2022, Additional history exists Potassium Level 05/24/2024 05/25/2023, 08/0 02/2022, 05/19/2022, Additional history exists Sodium Level 05/24/2024 05/25/2023, 08/0 02/2022, 05/19/2022, Additional history exists DTaP,Tdap,and Td Vaccines (3 - Td or Tdap) 10/30/2031 10/29/2021, 03/13/2012, 11/23/2004 Pneumococcal vaccine (50+ years) Completed 04/10/2014, 11/23/2004, 12/25/2002 IPV Vaccines Aged Out No longer eligi ble based on patient's age to complete this topic Medical Devices Implanted Type Area Category Manager Device Identifier Shelf Expiration Date Model / Serial / Lot Conversions - Default Historical Implant Device Implanted:2015 (Quantity not on file) Ocular Lens Bilatera l: Eye Description:Device Status Te xt - OculrLens. Cataract surgery both eyes. Procedures Procedure Name Priority Date/Time Associated Diagnosis Comments ALBUMIN, RANDOM, U Routine 04/28/2021 10 :35 AM MAIL LIST PROCESSOR Diabetes Mellitus Type 2 (HCC) General Medical Examination Adult HEMOGLOBIN A1C, B Routine 04/28/2021 10: 25 AM MAIL LIST PROCESSOR Diabetes Mellitus Type 2 (HCC) BASIC METABOLIC PANEL, S/P Routine 04/28/2021 10:25 AM MAIL LIST PROCESSOR Hypertension Essential Primary from Last 3 Months or Most Recently Relevant to Health Maintenance Results * (ABNORMAL) Albumin, Random, Urine (04/28/2021 10:35 AM MAIL LIST PROCESSOR) Albumin, Random, U 43.0 mg/L 2021 1:15 PM MAIL LIST PROCESSOR DTL Comment: ----ADDITIONAL INFORMATION---- This test has been modified from the soil tester's instructions. Its performance characteristics were determined by [facility] in a manner consistent with CLIA requirements. This test has not been cleared or approved by the U.S. Food and Drug Administration. Creatinine 75 mg/dL 04/28/2021 12:24 PM MAIL LIST PROCESSOR DTL Albumin/Creatinine Ratio 57(H) <17 mg/g 04/28/2021 1:15 PM MAIL LIST PROCESSOR DTL Urine (Urine, Midstream) 04/28/2021 10:35 AM MAIL LIST PROCESSOR 04/28/2021 11:48 AM MAIL LIST PROCESSOR Saravanan Mccoy M.D. LAB URINE ORDERABLES Final R esult [facility] [address] [place] [address], [facility] DTL [facility] [address] [place] [address] * (ABNORMAL) Hemoglobin A1c (04/28/2021 10:25 AM MAIL LIST PROCESSOR) Pathologist [facility] Hemoglobin A1c, B 6.4(H) 4.0 - 5.6 % 04/28/2021 11:34 AM MAIL LIST PROCESSOR DTL Comment: Hemoglobin A1c values of 5.7-6.4 percent indicate an increased risk for developing diabetes mellitus. In diabetic patients, HbA1c goals should be discussed with healthcare provider. Blood (Blood, Venous) 04/28/2021 10:25 AM MAIL LIST PROCESSOR 04/28/2021 10:53 AM MAIL LIST PROCESSOR Saravanan Mccoy M.D. LAB BLOOD ADD-ON Final Resul t [facility] [address] [place] [address], [facility] [address] [place] [address] * Basic Metabolic Panel (04/28/2021 10:25 AM MAIL LIST PROCESSOR) [facility] Potassium, S 4.3 3.6 - 5.2 mmol/L 04/28/2021 11:49 AM MAIL LIST PROCESSOR DTL Sodium, S 138 135 - 145 mmol/L 04/28/2021 11:49 AM MAIL LIST PROCESSOR DTL Chloride, S 100 98 - 107 mmol/L 04/28/2021 11:49 AM MAIL LIST PROCESSOR DTL Bicarbonate, S 25 22 - 29 mmol/L 04/28/2021 11:49 AM MAIL LIST PROCESSOR DTL Anion Gap 13 7 - 15 04/28/2021 11:49 AM MAIL LIST PROCESSOR DTL BUN (Blood Urea Nitrogen), S 17 8 - 24 mg/dL 04/28/2021 11:49 AM MAIL LIST PROCESSOR DTL Creatinine 0.86 0.74 - 1.35 mg/dL 04/28/2021 11:49 AM MAIL LIST PROCESSOR DTL eGFR-Non Black/ 80 >=60 mL/min/BSA 04/28/2021 11:49 AM MAIL LIST PROCESSOR DTL Comment: ----ADDITIONAL INFORMATION---- Estimated GFR calculated using the 2009 CKD_EPI creatinine equation. eGFR-Black/Afri can [place]i >90 >=60 mL/min/BSA 04/28/2021 11:49 AM MAIL LIST PROCESSOR DTL Comment: ----ADDITIONAL INFORMATION---- Estimated GFR calculated using the 2009 CKD_EPI creatinine equation. Calcium, Total, S 9.9 8.8 - 10.2 mg/dL 04/28/2021 11:49 AM MAIL LIST PROCESSOR DTL Glucose, S CANCELED mg/dL 04/28/2021 11:08 AM MAIL LIST PROCESSOR DTL Comment: Duplicate test request. Result canceled by the ancillary. Blood (Blood, Venous) 04/28/2021 10:25 AM MAIL LIST PROCESSOR 04/28/2021 11:08 AM MAIL LIST PROCESSOR Saravanan Mccoy M.D. LAB BLOOD ADD-ON Final Resul t [facility] [address] [place] [address], [facility] [address] [place] [address] from Last 3 Months or Most Recently Relevant to Health Maintenance Insurance [address] [place] [address] MEDICARE [facility] Advance Directives For more information, please contact: [phone] Documents on File Type Date Recorded Patient Test Tech Expl anation Advance Directives 04/01/2010 12:00 AM Latisha perea document. See document viewer. Care Teams Health Sciences Department Chair Relationship Specialty Start Date End Date Elsewhere, Pcp PCP - General Internal Medicine 02/04/21
--- OUTSIDE RECORDS SUMMARY | 2024-02-29 13:22 | XMS_ITS | Clinical Summary ---
Author Organization [employer] [facility] Address [place], [place] [address] Care Team Providers Care Medical Chief Technician Name Role Phone Mis Yañez DO Unavailable Zachariah Elaine MD Primary Care Provider [phone] Allergies Active Allergy Reactions Criticality Noted Date Comments Duloxetine Other - Describe In Comment Field 06/08/2003 Emotional Irriability Metronidazole Other - Describe In Comment Field 03/13/2012 severe gi irrability Trazodone Anxiety 09/24/2015 Medications MULTIVITAMIN TAB one tab daily 0 8 Active eszopiclone (LUNESTA) 3 mg tablet TAKE 1 TABLET (3 MG) BY MOUTH AT BEDTIME NEEDED FOR SLEEP. TAKE 30 MINUTES BEFORE INTENDED TIME OF SLEEP ONSET. 1 Active durable medical equipment (DME)Indications:F unctional gait abnormality Four pronged cane. 1 Each 1 Active acetaminophen (TYLENOL EXTRA STRGTH) 500 mg tablet Take 1,000 mg by mouth every 6 hours if needed for Pain. Pain/Headache /Fever Active wheelchairIndicati ons:Weakness of lower extremity, unspecified laterality TRANSFER Wheelchair: Standard with leg rests: (Swing away Length of need: 99 months 1 Each 3 Active commodeIndications :Weakness of lower extremity, unspecified laterality As directed. Commode. For home use. 1 Each 3 Active hospital bedIndications:Wea kness of lower extremity, unspecified laterality Hospital bed with mattress and full rails. Semi-electric bed. Length of need 99 months. Bed lmsw:no 1 Each 3 Active Diabetic ShoeIndications:Co ntrolled type 2 diabetes mellitus with diabetic neuropathy, without long-term current use of insulin (HC) As directed. 2 Each 3 Active lisinopril-hydroch lorothiazide 20-12.5 mg tablet (PRINZIDE)Indicati ons:Primary hypertension Take 1 Tablet by mouth once daily. 90 Tablet 3 4 Active metFORMIN (GLUCOPHAGE XR) 500 mg Extended-Release tabletIndications: Controlled type 2 diabetes mellitus with diabetic neuropathy, without long-term current use of insulin (HC) Take 2 Tablets (1,000 mg) by mouth two times daily. 360 Tablet 3 4 Active cholecalciferol (VITAMIN D3) 1,000 unit tabletIndications: Vitamin D insufficiency Take 1 Tablet (1,000 units) by mouth once daily. 90 Tablet 3 4 Active omeprazole (PRILOSEC) 20 mg Delayed-Release capsuleIndications :Gastroesophageal reflux disease, unspecified whether esophagitis present Take 1 Capsule (20 mg) by mouth once daily before a meal. 90 Capsule 3 4 Active simvastatin (ZOCOR) 40 mg tabletIndications: Other hyperlipidemia TAKE 1 TABLET (40 MG) BY MOUTH ONCE DAILY. 90 Tablet 2 4 Active gabapentin (NEURONTIN) 300 mg capsuleIndications :Diabetic polyneuropathy associated with diabetes mellitus due to underlying condition (HC),Spinal stenosis of lumbar region with neurogenic claudication TAKE 2 CAPSULES BY MOUTH IN THE MORNING AND AFTERNOON 4 CAPSULES AT BEDTIME 720 Capsule 3 4 Active methocarbamoL (ROBAXIN) 750 mg tabletIndications: Muscle spasms of both lower extremities Take 1 Tablet (750 mg) by mouth 3 times daily if needed for Muscle Spasm. 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 04/19/2018 Bilateral inguinal hernia 12/05/2017 Neuropathy, peripheral 06/12/2012 Overview (01/21/2021): Bilateral toes involved; improved with Neurontin Insomnia, unspecified 06/12/2012 Overview (01/21/2021): Does well with Ambien Hyperlipidemia 06/09/2008 Major depressive disorder 01/03/2007 Gastroesophageal reflux disease 09/28/2006 Overview (01/21/2021): Well-controlled with Prilosec Primary malignant neoplasm of prostate 7 Overview (01/21/2021): being watched per [place] specialist:sp TURP Incomplete bladder emptying 01/08/2006 Primary hypertension 12/12/2005 Overview (01/21/2021): Patient states that he had stress test at [place] approximately 2010: negative. Has been told that he has a benign Cardiac Arrhythmia - no abnormality heard today. 06/12/2012 Erectile dysfunction 11/23/2004 Encounters Date Type Department Care Team Description 02/28/2024 Telephone [facility] [place] [address] [address] Lenny Cortez MD Appointment Request 02/28/2024 Nurse Triage [facility] [address] [place] [address] Zachariah Elaine MD Musculoskeletal Problem 02/26/2024 Nurse Triage [facility] [address] [place] [address] Zachariah Elaine MD from Last 3 Months Immunizations Name Administration Dates Next Due AMB Influenza, IIV3 (Age >=3 years)(Flu Clinic Only) 02/02/2011 COVID-19 VACCINE SPIKEVAX (M ODERNA 50MCG/0.5ML) 12YO+ PFS 12/15/2022 Influenza RIV4 (Age 18+ Year s) PRESERV FREE 11/28/2019 Influenza Virus, Unspecified 01/26/2011,11/27/19 09 Influenza, High-dose Inactivated 019,02/04/2018,12/02/2016,2015,01/08/2015,12/09/2013,01/01/2013,1 03/25/2011,12/23/2009 Influenza, High-dose Quadriv alent Inactivated 12/08/2021 Influenza, IIV3 (Age 6-35 mos) 1,02/01/2009,12/31/2007,2006 Influenza, IIV3 (Age >=3 years) 01/02/20 13,01/24/2012,02/01/2009,2005,12/23/2004,12/26/2003 Influenza, Inactivated AIIV4 (Age 65+ Years) Preserv Free 12/15/2022,11/26/2020 Pneumococcal Poly,23-Valent (Pneumovax) 11/23/2004,12/25/2002 Pneumococcal conj 13-Valent (Prevnar 13) 04/10/2014 Td (Age >=7 Years) 10/29/2021,11/23/2004 Td, Preservative Free (age > = 7 Years) 11/23/2004 Tdap 03/13/2012 Zoster (Shingrix-RZV, recombinant) 08/01/2022 Zoster (Zostavax-ZVL, live) 08/22/2007, 8 Family History Medical History Relation Name Comments Heart Disease Brother 1 Noel Stent Heart failure Brother 1 Noel of this a t 82 Multiple sclerosis Brother 1 Noel Other Brother 1 Noel MS Diabetes Brother 2 Shyam improved with D iet and Weight loss Kidney cancer Sister 2 [place] Relation Name Status Comments Brother 1 Noel Brother 2 Shyam Alive Brother 3 De Alive Father Shyam Irizarry Mother MaryBrennniranjan Sister 1 Bobbi Alive Sister 2 [place] Alive Social History Tobacco Use Types Packs/Day Years Used Date Smoking Tobacco: Former Cigarettes Q uit: 02/27/1968 Smokeless Tobacco: Never Tobacco Cessation:Counseling Given: Yes Alcohol Use Standard Drinks/Week Comments Yes 0 (1 standard drink = 0.6 oz pur e alcohol) 2 times per month - 1 beer PHQ-2 Answer Date Recorded PHQ-2 TOTAL SCORE 0 05/25/2023 Social Connections Answer Date Recorded Frequency of Communication with Friends and Fami ly Not on file 08/26/2022 Alcohol Use Answer Date Recorded How often do you have a drink containing alcohol ? 2 10/16/2023 How many drinks containing a lcohol do you have on a typical day when you are drinking? 0 10/16/2023 How often do you have five or more drinks on one occasion? 0 10/16/2023 Financial Resource Strain Answer Date R ecorded Difficulty of Paying Living Expenses 3 08/24/2021 Difficulty of Paying Living Expenses Not on file 08/24/2021 Food Insecurity Answer Date Recorded Worried About Running Out of Food in the Last Ye ar 1 08/24/2021 Transportation Needs Answer Date Record ed Lack of Transportation (Medical) 1 08/24/2021 Housing Stability Answer Date Recorded Unable to Pay for Housing in the Last Year 1 08/24/2021 Sex and Gender Information Value Date Recorded Sex Assigned at Male 09/18/2019 9:01 PM CDT Legal Sex Male 5:24 AM FRONT OF HOUSE MANAGER Gender Identity Male 09/18/2019 9:00 PM CDT Sexual Orientation Straight 09/18/2019 9: 00 PM CDT Occupation Industry Job Start Date Job End Date Retired [employer] Not on file Not o n file Not on file Obstetrics History Last Filed Vital Signs Vital Sign Reading Time Taken Comments Blood Pressure 114/67 11/13/2023 2:07 PM CDT Pulse 78 11/13/2023 2:07 PM CDT Temperature 36.2 C (97.2 F) 10/16/2023 2:54 PM CDT Respiratory Rate 16 07/05/2022 4:36 PM CDT Oxygen Saturation 95% 11/13/2023 2:07 PM CDT Inhaled Oxygen Concentration - - Weight 92 kg (202 lb 12.8 oz) 10/16/2023 2:54 PM CDT Height 184.2 cm (6' 0.5) 05/25/2023 2:37 PM CDT Body Mass Index 27.13 05/25/2023 2:37 PM CDT Plan of Treatment Upcoming Encounters Date Type Department Care Team (Late st Contact Info) Description 04/02/2024 10:20 AM FRONT OF HOUSE MANAGER Office Visit [facility] [place] [facility] [place] [address] [address] Lenny Cortez MD [address] [place] [address] 05/13/2024 2:00 PM CDT Office Visit [facility] [place] [facility] [address] [place] [address] Lenny Cortez MD [address] [place] [address] Health Maintenance Due Date Last Done Comments RSV vaccine for adults or (1 - 1-dose 75+ series) 06/28/2011 Zoster (shingles) series for age 50+ (3 of 3) 09/26/2022 08/01/2022, 08/22/2007, 05/22/2007 COVID-19 vaccine series ( season) 2023 12/15/2022, 08/01/2022, 12/08/2021, Additional history exists Influenza for age 65+ 10/28/2023 12/15/2022 , 12/08/2021, 11/26/2020, Additional history exists BMI (ht and wt on same day) for age 18+ 05/24/2024 05/25/2023, 05/19/2022, 10/26/2021, Additional history exists Medicare Wellness for age 65+ 05/25/2024 05/25/2023, 05/19/2022 Depression screening for age 12+ 05/27/2024 05/28/2023, 05/25/2023, 05/25/2023, Additional history exists Tetanus booster 10/30/2031 10/29/2021, 02/26, 11/23/2004, Additional history exists Tdap Completed 03/13/2012 Pneumococcal series for age 50+ Completed 04/10/2014, 11/23/2004, 12/25/2002 Insurance * Guarantor: Prince Irizarry Account Type Relation to Patient Date of Phone Billing Address Personal/Family Self 1935 [address] [place] [address] [place] [place] [employer] ONLY MEDICARE PART B HB ONLY [place] ONLY * Guarantor: Prince Irizarry Account Type Relation to Patient Date of Phone Billing Address Personal/Family Self 1935 [address] [place] [address] MEDICARE PPS [place] ONLY Care Teams Medical Chief Technician Relationship Specialty Start Date End Date Zachariah Elaine MD [address] [facility] [address] PCP - General Family Practice 06/14/22 Mis Yañez DO [address] [place] [address] Family Practice 09/01/20
--- OUTSIDE RECORDS SUMMARY | 2024-02-29 13:23 | XMS_ITS ---
Author Organization [facility] Address [address] [place] [address] Care Team Providers Care Manufacturing Technologist Name Role Phone Unavailable Unavailable Unavailable Surgery Details Not on file Complications Check Surgery Details section. Procedure Estimated Blood Loss Check Surgery Details section. Procedure Findings Check Surgery Details section. Procedure Specimens Taken Check Surgery Details section.
--- OUTSIDE RECORDS SUMMARY | 2024-02-29 13:23 | XMS_ITS | Referral Summary ---
Author Organization [facility] Address [address] [place] [address] Care Team Providers Care Fish Straightener Name Role Phone Elsewhere, Pcp Primary Care Provider Unavailabl e Source Comments Patient records contain information from all sites at [facility]. For routine questions regarding patient records, call [phone] during business hours, M-F 8:00 AM - 5:00 PM Central Time. Record requests for emergency care only can be directed to [phone] at any time.[facility] Allergies Active Allergy Reactions Criticality Noted Date [...] ) (18 years or older) (PF) 11/28/2019 Social History Tobacco Use Types Packs/Day Years [...] often do you attend chur ch or christian services? Never 04/28/2021 Do you belong to any clubs o r organizations such as sabianism groups, unions, fraternal or athletic groups, or [...] Answer Date Recorded PHQ-2 Score 2 04/28/2021 [facility] - Occupational Stress [...] place to sleep or slept in a penitentiary (including now)? No 04/28/2021 Nutrition Answer Date Recorded On average, how many serving s of fruits and vegetables do you eat per day (serving size is equal to 1 cup or approximately the size of a tennis ball)? 2-3 04/28/2021 Dental Answer Date Recorded Dental: Regular Dentist Yes 04/15/19 21 Employment Answer Date Recorded Employment status Retired 04/28/2021 Education Answer Date Recorded What is the highest level of school you have completed or the highest degree you have received? Doctorate 12/02/2018 Sex and Gender Information Value Date Recorded Sex Assigned at Male 09/05/2017 2:01 PM CDT Legal Sex Male 9:30 AM SEAFOOD PACKER Gender Identity Male 09/05/2017 2:01 PM CDT Sexual Orientation Straight 09/05/2017 2: 01 PM CDT Last Filed Vital Signs Vital Sign Reading Time Taken Comments Blood Pressure 109/67 04/28/2021 1:13 PM SEAFOOD PACKER Pulse 79 04/28/2021 1:13 PM SEAFOOD PACKER Temperature 35.6 C (96.1 F) 10/20/2020 2:58 PM CDT Respiratory Rate - - Oxygen Saturation - - Inhaled Oxygen Concentration - - Weight 91.9 kg (202 lb 9.6 oz) 04/28/2021 1:13 P M SEAFOOD PACKER Height 180.3 cm (5' 11) 04/28/2021 1:13 PM SEAFOOD PACKER Body Mass Index 28.26 04/28/2021 1:13 PM SEAFOOD PACKER Plan of Treatment Not on file Medical Devices Implanted Type Area Machine Preservative Filler Device Identifier Shelf Expiration Date Model / Serial / Lot Conversions - Default Historical Implant Device Implanted:2015 (Quantity not on file) Ocular Lens Bilatera l: Eye Description:Device Status Te xt - OculrLens. Cataract surgery both eyes. Procedures Procedure Name Priority Date/Time Associated Diagnosis Comments ALBUMIN, RANDOM, U Routine 04/28/2021 10 :35 AM SEAFOOD PACKER Diabetes Mellitus Type 2 (HCC) General Medical Examination Adult HEMOGLOBIN A1C, B Routine 04/28/2021 10: 25 AM SEAFOOD PACKER Diabetes Mellitus Type 2 (HCC) BASIC METABOLIC PANEL, S/P Routine 04/28/2021 10:25 AM SEAFOOD PACKER Hypertension Essential Primary from Last 3 Months or Most Recently Relevant to Health Maintenance Results * (ABNORMAL) Albumin, Random, Urine (04/28/2021 10:35 AM SEAFOOD PACKER) Albumin, Random, U 43.0 mg/L 2021 1:15 PM SEAFOOD PACKER DTL Comment: ----ADDITIONAL INFORMATION---- This test has been modified from the small business director's instructions. Its performance characteristics were determined by [facility] in a manner consistent with CLIA requirements. This test has not been cleared or approved by the U.S. Food and Drug Administration. Creatinine 75 mg/dL 04/28/2021 12:24 PM SEAFOOD PACKER DTL Albumin/Creatinine Ratio 57(H) <17 mg/g 04/28/2021 1:15 PM SEAFOOD PACKER DTL Urine (Urine, Midstream) 04/28/2021 10:35 AM SEAFOOD PACKER 04/28/2021 11:48 AM SEAFOOD PACKER Saravanan Mccoy M.D. LAB URINE ORDERABLES Final R esult [facility] [address] [place] [address], [facility] [address] [place] [address] * (ABNORMAL) Hemoglobin A1c (04/28/2021 10:25 AM SEAFOOD PACKER) Hemoglobin A1c, B 6.4(H) 4.0 - 5.6 % 04/28/2021 11:34 AM SEAFOOD PACKER DTL Comment: Hemoglobin A1c values of 5.7-6.4 percent indicate an increased risk for developing diabetes mellitus. In diabetic patients, HbA1c goals should be discussed with healthcare provider. Blood (Blood, Venous) 04/28/2021 10:25 AM SEAFOOD PACKER 04/28/2021 10:53 AM SEAFOOD PACKER Saravanan Mccoy M.D. LAB BLOOD ADD-ON Final Resul t [facility] [place] [address] [place] [address], [facility] [address] [place] [address] * Basic Metabolic Panel (04/28/2021 10:25 AM SEAFOOD PACKER) Potassium, S 4.3 3.6 - 5.2 mmol/L 04/28/2021 11:49 AM SEAFOOD PACKER DTL Sodium, S 138 135 - 145 mmol/L 04/28/2021 11:49 AM SEAFOOD PACKER DTL Chloride, S 100 98 - 107 mmol/L 04/28/2021 11:49 AM SEAFOOD PACKER DTL Bicarbonate, S 25 22 - 29 mmol/L 04/28/2021 11:49 AM SEAFOOD PACKER DTL Anion Gap 13 7 - 15 04/28/2021 11:49 AM SEAFOOD PACKER DTL BUN (Blood Urea Nitrogen), S 17 8 - 24 mg/dL 04/28/2021 11:49 AM SEAFOOD PACKER DTL Creatinine 0.86 0.74 - 1.35 mg/dL 04/28/2021 11:49 AM SEAFOOD PACKER DTL eGFR-Non Black/ 80 >=60 mL/min/BSA 04/28/2021 11:49 AM SEAFOOD PACKER DTL Comment: ----ADDITIONAL INFORMATION---- Estimated GFR calculated using the 2009 CKD_EPI creatinine equation. eGFR-Black/Afri can Citizen Of [place] >90 >=60 mL/min/BSA 04/28/2021 11:49 AM SEAFOOD PACKER DTL Comment: ----ADDITIONAL INFORMATION---- Estimated GFR calculated using the 2009 CKD_EPI creatinine equation. Calcium, Total, S 9.9 8.8 - 10.2 mg/dL 04/28/2021 11:49 AM SEAFOOD PACKER DTL Glucose, S CANCELED mg/dL 04/28/2021 11:08 AM SEAFOOD PACKER DTL Comment: Duplicate test request. Result canceled by the ancillary. Blood (Blood, Venous) 04/28/2021 10:25 AM SEAFOOD PACKER 04/28/2021 11:08 AM SEAFOOD PACKER Saravanan Mccoy M.D. LAB BLOOD ADD-ON Final Resul t [facility] [place] [address] [place] [address], [facility] DTL [facility] [address] [place] [address] from Last 3 Months or Most Recently Relevant to Health Maintenance Insurance [address] [place] [address] MEDICARE [facility] Advance Directives For more information, please contact: [phone] Documents on File Type Date Recorded Patient Needle Setter Expl anation Advance Directives 04/01/2010 12:00 AM [place] document. See document viewer. Care Teams Fish Straightener Relationship Specialty Start Date End Date Elsewhere, Pcp PCP - General Internal Medicine 02/04/21
--- NOTE | 2024-02-29 15:06 | ED_ITS ---
HPI - General Adult General Time Seen by Provider: 15:06 Date Seen: 02/29/24 Chief complaint: Shortness of Breath/Dyspnea Stated complaint: Shortness of breath, chest pain, lethargy Time Seen by Provider: 02/29/24 14:27 Source: patient and RN notes reviewed Mode of arrival: ambulatory Limitations: no limitations History of Present Illness HPI narrative: This 88-year-old male is coming in feeling better now but this morning had an episode for couple of hours where he felt short of breath, between 9:00 a.m. to 11:00 a.m.. With that he felt some abdominal discomfort. He admits he did not sleep well last night, had difficulty attempting to get out of bed last evening, he states he tired himself out and worked himself up doing that. He notes his lower legs were cramping attempting to get out of bed, he continued to try to do that and became more worn out. He states he could not sleep then. He admits he got himself worked up. He states his was there and was quite good. He admits that he got himself into a bad mental state with this last night. He is now feeling better but tired. He was exposed to a friend on [place] at a small celebration whom admitted that he had had something viral about 24 hours prior. Mahesh has not had any fevers or chills, no nausea vomiting, no diarrhea, no urinary symptoms. He denies any cough or cold symptoms. He notes that his lower extremities, right worse than left typically do cramp. He noted no chest pain at any time. He states he only ate a banana today. Patient does share with me that he has a very bad low back. Related Data Home Medications ?Medication ?Instructions ?Recorded ?Confirmed lisinopril 10 1 tab PO DAILY 10/29/21 02/29/24 mg-hydrochlorothiazide 12.5 mg tablet metformin 500 mg tablet,extended 1,000 mg PO BID 10/29/21 02/29/24 release 24 hr eszopiclone 3 mg tablet (Lunesta) 3 - 6 mg PO HS PRN 11/04/21 02/29/24 gabapentin 300 mg capsule 600 mg PO BID@,14 11/04/21 02/29/24 (Neurontin) multivitamin 1 tab PO DAILY 11/04/21 02/29/24 omeprazole 20 mg capsule,delayed 20 mg PO DAILY 11/04/21 02/29/24 release simvastatin 40 mg tablet (Zocor) 40 mg PO HS 11/04/21 02/29/24 cholecalciferol (vitamin D3) 25 25 mcg PO DAILY 02/29/24 02/29/24 mcg (1,000 unit) tablet gabapentin 300 mg capsule 1,200 mg PO HS 02/29/24 02/29/24 methocarbamol 750 mg tablet 750 mg PO TID PRN muscle spasm 02/29/24 02/29/24 Allergies Allergy/AdvReac Type Severity Reaction Status Date / Time duloxetine Allergy emotional Verified 02/29/24 12:30 irritability metronidazole Allergy severe GI Verified 02/29/24 12:30 irritability trazodone Allergy Anxiety Verified 02/29/24 12:30 Review of Systems Status of ROS: Reports: 6 or more systems reviewed and unremarkable except as noted in History and below [facility] Medical History Bilateral inguinal hernia ?K40.20 - Bilateral inguinal hernia, without obstruction or gangrene, not specified as recurrent (ICD-10) ED (erectile dysfunction) ?N52.9 - Male erectile dysfunction, unspecified (ICD-10) Hyperlipidemia, unspecified ?E78.5 - Hyperlipidemia, unspecified (ICD-10) Incomplete emptying of bladder ?R33.9 - Retention of urine, unspecified (ICD-10) Muscular atrophy ?M62.50 - Muscle wasting and atrophy, not elsewhere classified, unspecified site (ICD-10) Major depressive disorder ?F32.9 - Major depressive disorder, single episode, unspecified (ICD-10) GERD (gastroesophageal reflux disease) ?K21.9 - Gastro-esophageal reflux disease without esophagitis (ICD-10) Insomnia ?G47.00 - Insomnia, unspecified (ICD-10) Neuropathy, peripheral ?G62.9 - Polyneuropathy, unspecified (ICD-10) Left foot drop ?M21.372 - Foot drop, left foot (ICD-10) Neuropathy ?G62.9 - Polyneuropathy, unspecified (ICD-10) DM (diabetes mellitus), type 2 ?E11.9 - Type 2 diabetes mellitus without complications (ICD-10) Hypertension ?I10 - Essential (primary) hypertension (ICD-10) Surgical History H/O right wrist surgery ?Z98.890 - Other specified postprocedural states (ICD-10) S/P TURP (transurethral resection of prostate) ?Z90.79 - Acquired absence of other genital organ(s) (ICD-10) History of colectomy ?Z90.49 - Acquired absence of other specified parts of digestive tract (ICD- 10) History of cataract removal with insertion of prosthetic lens ?Z98.49 - Cataract extraction status, unspecified eye (ICD-10) ?Z96.1 - Presence of intraocular lens (ICD-10) History of hammertoe correction ?Z98.890 - Other specified postprocedural states (ICD-10) ?Z87.39 - Personal history of other diseases of the musculoskeletal system and connective tissue (ICD-10) No significant past surgical history Social History Smoking Status: Former smoker What tobacco products do you use: cigarettes Smoking quit date/years: >15 years ago Do you use any of these nicotine containing products: None Second hand tobacco smoke exposure: Yes How often do you have a drink containing alcohol: 2-4 times a month How many standard drinks containing alcohol do you have on a typical day: 1 or 2 How often do you have six or more drinks on one occasion: Never AUDIT-C Alcohol total score: 2 Non-prescribed substance use: denies use Caffeine: Yes service: No Exam Const: Vital Signs, click to edit/add: Vital Signs - 24 hr 02/29/24 13:36 02/29/24 14:45 02/29/24 14:46 Temperature 97.2 F L Pulse Rate 80 79 Pulse Rate [Right Pulse Oximeter] 85 Respiratory Rate 20 Blood Pressure 120/79 Blood Pressure [Ri ght Upper Arm] 108/69 Pulse Oximetry 95 95 96 Oxygen Delivery Me thod Room Air 02/29/24 15:00 02/29/24 15:01 02/29/24 15:15 Temperature Pulse Rate 79 81 75 Pulse Rate [Right Pulse Oximeter] Respiratory Rate Blood Pressure 112/95 H Blood Pressure [Ri ght Upper Arm] Pulse Oximetry 93 94 93 Oxygen Delivery Me thod 02/29/24 15:30 02/29/24 15:31 02/29/24 15:45 Temperature Pulse Rate 85 84 78 Pulse Rate [Right Pulse Oximeter] Respiratory Rate Blood Pressure 112/77 Blood Pressure [Ri ght Upper Arm] Pulse Oximetry 95 92 94 Oxygen Delivery Me thod 02/29/24 16:00 02/29/24 16:01 02/29/24 16:15 Temperature Pulse Rate 90 84 83 Pulse Rate [Right Pulse Oximeter] Respiratory Rate Blood Pressure 127/82 Blood Pressure [Ri ght Upper Arm] Pulse Oximetry 96 96 95 Oxygen Delivery Me thod 02/29/24 16:30 02/29/24 16:31 02/29/24 16:45 Temperature Pulse Rate 90 83 85 Pulse Rate [Right Pulse Oximeter] Respiratory Rate Blood Pressure 119/79 Blood Pressure [Ri ght Upper Arm] Pulse Oximetry 94 96 92 Oxygen Delivery Co thod Mahesh is an 88-year-old male that is alert, interactive, no apparent distress. He was resting in in his bed, awakens easily. He is very pleasant. Sclerae clear, conjugate gaze, able speak in complete sentences, symmetrical facial function. Is able to sit up, lungs are clear, good air entry, no wheezing crackles, no tachypnea. Note no neck masses or adenopathy. CV regular rate and rhythm, soft systolic murmur, normal S1-S2, no S3-S4. Abdomen is soft, nontender, nondistended, no organomegaly. No lower extremity edema noted. Baseline has left footdrop an underlying diabetic neuropathy. Is moving arms. Did come back in a wheelchair. He has absolutely no lower extremity edema. No tenderness over his calves. His lower extremities have diminutive muscle mass. Documenting provider has reviewed patient's vital signs: yes Course Course ED Course: Patient will be monitored on pulse oximetry, EKG has been obtained by nursing staff on arrival and looks reassuring. He is improved now, symptoms have abated. Will get portable chest x-ray, look at full complement of labs. [facility]eta da[facility] staff has done a triple viral swab. Some of his history does seem to be consistent with anxiety but will try to rule out any infectious etiology, cardiac/ischemic etiology. Hemodynamically stable right now. Reevaluation(s) Time of Reevaluation #1: 16:48 Reevaluation #1: Have reviewed with patient that his troponin is elevated. We will consider this a non-STEMI if we do not find any evidence of pulmonary embolus on workup. We have a D-dimer pending. I will be talking to Cardiology. Laid out a couple scenarios for the patient. Did discuss that 1 of the scenarios would be to go up to the [facility], see Cardiology in go to angiogram. He would prefer medical management, nonsurgical management and staying here but if appliance service representative thought it would be best for him to go he certainly would go. His advanced directives dictate DNR DNI but he understands that we certainly will still do interventions as guided by him. Consultations Consultation #1: Have spoken with Cardiology, Dr. Blanco. Did review that this patient does want medical management if Cardiology deems appropriate, we discussed patient's age underlying past medical history and current symptoms. Do feel that this patient had an episode this morning and has had a non-STEMI. He absolutely agrees with medical management, he would use aspirin, heparin for 48 hours, initiate Imdur and Lopressor. Patient needs to get an updated echo, titrate statin for maximal lipid control. He would not base management on troponin trending alone, he would go on chest pain and patient symptomatology. Did subsequently update Dr. Bonilla. I am giving 324 mg aspirin now, will initiate the ACS heparin, patient will need a PT, PTT, have ordered daily labs as part of that protocol. Heparin should be continued for 48 hours. Hospitalist will need to order echo, lipid panel. I will order 12.5 mg of Lopressor immediate release, hospitalist can work on blood pressure management and pulse titration. Dr. Bonilla will have me weight on the Imdur, plans on initiating that tomorrow. His lisinopril/hydrochlorothiazide may need downward adjustment. Time: 17:34 Vital Signs Vital signs: Initial Vital Signs Temperature 97.2 F L 02/29/24 13:36 Temperature Source Temporal Artery Scan 02/29/24 13:36 Pulse Rate 85 02/29/24 13:36 Pulse Rhythm Regular 02/29/24 13:36 Respiratory Rate 20 02/29/24 13:36 Blood Pressure 108/69 02/29/24 13:36 Blood Pressure Mean 82 02/29/24 13:36 Blood Pressure Position Sitting 02/29/24 13:36 Pulse Oximetry 95 02/29/24 13:36 Oxygen Delivery Method Room Air 02/29/24 13:36 Vital Signs Temperature 97.2 F L 02/29/24 13:36 Pulse Rate 85 02/29/24 13:36 Respiratory Rate 20 02/29/24 13:36 Blood Pressure 108/69 02/29/24 13:36 Pulse Oximetry 95 02/29/24 13:36 Oxygen Delivery Method Room Air 02/29/24 13:36 Temperature 97.2 F L 02/29/24 13:36 Pulse Rate 85 02/29/24 16:45 Respiratory Rate 20 02/29/24 13:36 Blood Pressure 119/79 02/29/24 16:31 Pulse Oximetry 92 02/29/24 16:45 Oxygen Delivery Method Room Air 02/29/24 13:36 Medical Decision Making Lab Data Lab results reviewed: Yes I reviewed the patient's lab results Labs: Lab Results 02/29/24 02/29/24 02/29/24 Range/Units 15:00 15:28 16:00 WBC 7.77 (4.50-11.00) K/uL RBC 4.88 (4.30-5.90) m/uL Hgb 13.2 L (13.5-17.5) gm/dL Hct 39.2 (37.0-53.0) % MCV 80 (80-100) fL MCH 27 (26-34) pg MCHC 34 (32-36) gm/dL RDW Coeff of Tamir 13.3 (11.5-15.5) % Plt Count 274 (140-440) K/uL Neut % (Auto) 73.2 H (42.0-72.0) % Lymph % (Auto) 18.5 L (20-44) % [place] % (Auto) 7.6 (0.0-11.0) % Eos % (Auto) 0.3 (0.0-7.0) % Baso % (Auto) 0.3 (0.0-3.0) % Neut # (Auto) 5.70 (1.7-7.0) K/uL Lymph # (Auto) 1.40 (0.90-2.90) K/uL [place] # (Auto) 0.60 (0.00-0.90) K/UL Eos # (Auto) 0.02 (0.00-0.50) K/uL Baso # (Auto) 0.02 (0.00-0.30) K/uL Abs Immat Gran (auto) 0.01 (0.00-0.30) K/uL Imm/Tot Granulo (auto) 0.1 % D-Dimer Quant (PE/DVT) 0.28 (0.00-0.50) ug/ml VBG pH 7.424 (7.32-7.43) VBG pCO2 38 L (40-50) mmHG VBG pO2 34.4 (25-47) mmHG VBG HCO3 25 (21-28) mmol/L Sodium 126 L (135-149) mmol/L Potassium 4.2 (3.6-5.1) mmol/L Chloride 94 L (96-114) mmol/L Carbon Dioxide 23 (20-32) mmol/L Anion Gap 9 (7-15) mEq/L BUN 16 (7-30) mg/dL Creatinine 0.7 (0.5-1.5) mg/dL Estimated Creat Clear 57.12 Estimated GFR 89 ml/min Glucose 141 H (60-115) mg/dL Lactate 1.8 (0.5-1.9) mmol/L Calcium 9.5 (8.4-10.6) mg/dL Magnesium 1.6 (1.5-2.6) mg/dL Total Bilirubin 0.6 (0.1-1.5) mg/dL AST 38 H (12-35) U/L ALT 23 (4-50) U/L Alkaline Phosphatase 67 (40-150) U/L Troponin I 1.21 H* (0.01-0.04) ng/mL C-Reactive Protein 0.9 (0.5-1.0) mg/dL NT-Pro-B Natriuret Pep 40186 pg/mL Total Protein 7.4 (6.0-8.3) g/dL Albumin 4.7 (3.3-5.0) g/dL Lipase 77 (23-300) U/L Urine Color Yellow (Yellow) Urine Appearance Clear (Clear) Urine pH 7.0 (5.0-8.5) Ur Specific [place] 1.020 (1.000-1.030) Urine Protein 2+ A (Negative) Urine Glucose (UA) Negative (Negative) Urine Ketones 1+ A (Negative) Urine Blood Negative (Negative) Urine Nitrite Negative (Negative) Urine Bilirubin Negative (Negative) Urine Urobilinogen 0.2 (0.2-1.0) Ur Leukocyte Esterase Negative (Negative) Urine RBC 0-2 (0-2) Urine WBC 0-2 (0-5) Ur Squamous Epith Cells Few (None-Few) Urine Bacteria None (None) SARS-CoV-2 (PCR) Negative SARS-CoV-2 (Negative) Influenza Type A (PCR) Negative PCR FLU A (Negative) Influenza Type B (PCR) Negative PCR FLU B (Negative) RSV (PCR) Negative PCR RSV (Negative) Lab Acknowledgement 02/29/24 Range/Units 16:27 WBC (4.50-11.00) K/uL RBC (4.30-5.90) m/uL Hgb (13.5-17.5) gm/dL Hct (37.0-53.0) % MCV (80-100) fL MCH (26-34) pg MCHC (32-36) gm/dL RDW Coeff of Atmir (11.5-15.5) % Plt Count (140-440) K/uL Neut % (Auto) (42.0-72.0) % Lymph % (Auto) (20-44) % [place] % (Auto) (0.0-11.0) % Eos % (Auto) (0.0-7.0) % Baso % (Auto) (0.0-3.0) % Neut # (Auto) (1.7-7.0) K/uL Lymph # (Auto) (0.90-2.90) K/uL [place] # (Auto) (0.00-0.90) K/UL Eos # (Auto) (0.00-0.50) K/uL Baso # (Auto) (0.00-0.30) K/uL Abs Immat Gran (auto) (0.00-0.30) K/uL Imm/Tot Granulo (auto) % D-Dimer Quant (PE/DVT) (0.00-0.50) ug/ml VBG pH (7.32-7.43) VBG pCO2 (40-50) mmHG VBG pO2 (25-47) mmHG VBG HCO3 (21-28) mmol/L Sodium (135-149) mmol/L Potassium (3.6-5.1) mmol/L Chloride (96-114) mmol/L Carbon Dioxide (20-32) mmol/L Anion Gap (7-15) mEq/L BUN (7-30) mg/dL Creatinine (0.5-1.5) mg/dL Estimated Creat Clear Estimated GFR ml/min Glucose (60-115) mg/dL Lactate (0.5-1.9) mmol/L Calcium (8.4-10.6) mg/dL Magnesium (1.5-2.6) mg/dL Total Bilirubin (0.1-1.5) mg/dL AST (12-35) U/L ALT (4-50) U/L Alkaline Phosphatase (40-150) U/L Troponin I (0.01-0.04) ng/mL C-Reactive Protein (0.5-1.0) mg/dL NT-Pro-B Natriuret Pep pg/mL Total Protein (6.0-8.3) g/dL Albumin (3.3-5.0) g/dL Lipase (23-300) U/L Urine Color (Yellow) Urine Appearance (Clear) Urine pH (5.0-8.5) Ur Specific [place] (1.000-1.030) Urine Protein (Negative) Urine Glucose (UA) (Negative) Urine Ketones (Negative) Urine Blood (Negative) Urine Nitrite (Negative) Urine Bilirubin (Negative) Urine Urobilinogen (0.2-1.0) Ur Leukocyte Esterase (Negative) Urine RBC (0-2) Urine WBC (0-5) Ur Squamous Epith Cells (None-Few) Urine Bacteria (None) SARS-CoV-2 (PCR) (Negative) Influenza Type A (PCR) (Negative) Influenza Type B (PCR) (Negative) RSV (PCR) (Negative) Lab Acknowledgement Test Added Imaging Data Chest x-ray: Attestation: I have reviewed the pertinent imaging results. My impression: I see no evidence of any pleural effusions, no infiltrates or anything to suggest congestive heart failure my preliminary review. Radiologist's impression: Patient: MICHAEL DOBBS Facility:[facility] Patient ID:?[id number] Site Patient ID:?[id number]. Site :?[id number] Study:?XRay-Chest portable-02/29/2024 3:44:12 PM Ordering Physician:Zacarias Robert Final Report: Indication: Shortness of breath Technique: Chest 1 view Comparison: None Findings/Impression: Cardiovascular and mediastinum: Normal heart size with mild aortic tortuosity and atherosclerotic calcification. Lungs and pleural space: Lungs are clear. No sign of infiltrate or mass. No sign of pleural effusion. No pneumothorax. Bones and soft tissues: No acute findings. Dictated by Nino Tony MD @ 02/29/2024 3:58:37 PM (Electronic Signature) ECG Data Attestation: I personally reviewed and interpreted this ECG as follows: (Sinus rhythm with first-degree AV block, 81 beats per minute. Q-waves V1 V2 without any ST segment or T-wave change.) Prior ECG tracings: not available for review Discharge Plan Discharge Clinical Impression: Acute non-ST elevation myocardial infarction (NSTEMI) Patient Disposition: Admitted As Observation
--- NOTE | 2024-02-29 15:16 | CRLHL7_ITS ---
For Patients: As a result of the Century Cures Act, medical imaging exams and procedure reports are released immediately into your electronic medical record. You may view this report before your referring provider. If you have questions, please contact your health care provider. Indication: Shortness of breath Technique: Chest 1 view Comparison: None Findings/Impression: Cardiovascular and mediastinum: Normal heart size with mild aortic tortuosity and atherosclerotic calcification. Lungs and pleural space: Lungs are clear. No sign of infiltrate or mass. No sign of pleural effusion. No pneumothorax. Bones and soft tissues: No acute findings. Dictated by Nino Tony MD @ 02/29/2024 3:58:37 PM (Electronically Signed)
[2024-02-29 15:39] LABS: HCO3 VBG 25 mmol/L (21-28); Lactate* 1.8 mmol/L (0.5-1.9); PCO2 VBG 38 mmHG (40-50); PO2 VBG 34.4 mmHG (25-47); pH VBG 7.424 (7.32-7.43)
[2024-02-29 15:42] LABS: Basophils Absolute Auto 0.02 K/uL (0.00-0.30); Basophils Percent Auto 0.3 % (0.0-3.0); Eosinophils Absolute Auto 0.02 K/uL (0.00-0.50); Eosinophils Percent Auto 0.3 % (0.0-7.0); Hematocrit 39.2 % (37.0-53.0); Hemoglobin* 13.2 gm/dL (13.5-17.5); Immature Granulocytes Abs Auto 0.01 K/uL (0.00-0.30); Immature Granulocytes Pct Auto 0.1 %; Lymphocytes Percent Auto 18.5 % (20-44); Mean Corpuscular HGB Conc 34 gm/dL (32-36); Mean Corpuscular Hemoglobin 27 pg (26-34); Mean Corpuscular Volume 80 fL (80-100); Monocytes Percent Auto 7.6 % (0.0-11.0); Neutrophils Percent Auto 73.2 % (42.0-72.0); Platelet Count* 274 K/uL (140-440); RDW Coefficient of Variation % 13.3 % (11.5-15.5); Red Blood Count 4.88 m/uL (4.30-5.90); White Blood Count* 7.77 K/uL (4.50-11.00)
[2024-02-29 15:43] LABS: Slide Review Reflex No
[2024-02-29 15:49] LABS: PCR FLU A Negative PCR FLU A (Negative); PCR FLU B Negative PCR FLU B (Negative); PCR RSV Negative PCR RSV (Negative); SARS PCR* Negative SARS-CoV-2 (Negative)
[2024-02-29 15:58] LABS: Albumin* 4.7 g/dL (3.3-5.0); Chloride* 94 mmol/L (96-114)
[2024-02-29 15:59] LABS: Potassium* 4.2 mmol/L (3.6-5.1); Sodium* 126 mmol/L (135-149)
[2024-02-29 16:01] LABS: Alkaline Phosphatase* 67 U/L (40-150); Anion Gap 9 mEq/L (7-15); Aspartate Amino Transferase* 38 U/L (12-35); Bilirubin Total* 0.6 mg/dL (0.1-1.5); Carbon Dioxide* 23 mmol/L (20-32); Creatinine* 0.7 mg/dL (0.5-1.5); Est. Creatinine Clearance* 57.12; Estimated Glomerular Filt Rate 89 ml/min; Total Protein* 7.4 g/dL (6.0-8.3)
[2024-02-29 16:02] LABS: Alanine Aminotransferase* 23 U/L (4-50); Blood Urea Nitrogen* 16 mg/dL (7-30); Calcium* 9.5 mg/dL (8.4-10.6); Glucose* 141 mg/dL (60-115); Lipase* 77 U/L (23-300); Magnesium* 1.6 mg/dL (1.5-2.6)
[2024-02-29 16:04] LABS: Appearance Urine Clear (Clear); Bilirubin Urine Negative (Negative); Blood Urine Negative (Negative); Glucose Urine Negative (Negative); Ketones Urine 1+ (Negative); Leukocyte Esterase Urine Negative (Negative); Nitrite Urine Negative (Negative); Protein Urine 2+ (Negative); Urobilinogen Urine 0.2 (0.2-1.0)
[2024-02-29 16:04] LABS: C Reactive Protein* 0.9 mg/dL (0.5-1.0)
[2024-02-29 16:17] LABS: NT Pro B Type NatriureticPept* 10500 pg/mL
[2024-02-29 16:17] LABS: Color Urine Yellow (Yellow)
[2024-02-29 16:18] LABS: Troponin I* 1.21 ng/mL (0.01-0.04)
[2024-02-29 16:36] LABS: RBC Urine 0-2 (0-2); Squamous Epithelial Cell Urine Few (None-Few); WBC Urine 0-2 (0-5)
[2024-02-29 16:54] LABS: D Dimer Quantitative* 0.28 ug/ml (0.00-0.50)
[2024-02-29 17:55] LABS: INR 0.92 (0.91-1.10); Prothrombin Time 12.9 Seconds
[2024-02-29 17:56] LABS: Partial Thromboplastin Time* 39 Seconds (23-33)
[2024-02-29] MEDS: ASPIRIN 81 MG TAB.CHEW 324 MG PO (18:04)
[2024-02-29] MEDS: HEPARIN 5,000 UNIT/0.5 ML INJ 4000 UNIT IVP (18:09)
[2024-02-29] MEDS: HEPARIN 25,000 UNIT/500 ML BAG 20 UNIT IV (18:10)
[2024-02-29] MEDS: ACETAMINOPHEN 500 MG TABLET 1000 MG PO (18:20)
[2024-02-29 18:25] LABS: Troponin I* 1.08 ng/mL (0.01-0.04)
--- NOTE | 2024-02-29 19:31 | PC.NURSE ---
Nursing Care Hours: [id number] Pt arrived to unit on w/c, alert and oriented. Heperain running at 1000units/hr. Standing scale done, pt required assistance with standing d/t stiffness and pain in LE. Rates pain in LE at 7/10. Denies chest pain, SOB, or nausea. VSS on RA. Rash noted on inner L arm under coban and spreading distally. Coban removed. Pt denies itching or burning. Tele initiated. Report given to oncoming nurse.
--- NOTE | 2024-02-29 19:58 | P.IMHP_ITS ---
Hospitalist- H&P: HPI History of Present Illness Date Seen: 02/29/24 Chief complaint: Shortness of breath, chest pain, lethargy Narrative: Prince Irizarry is a 88 year old male with diabetes mellitus, hypertension, hyperlipidemia, spinal stenosis, neuropathy, prostate cancer presents the hospital with a 2 day history of stiffness/weakness causing immobility and abdominal pain and dyspnea. At baseline he reports fairly severe immobility related to polyneuropathy and spinal stenosis. His biggest challenges getting from supine in bed to sitting up to transferring to the wheelchair. He is nonambulatory. He has been managing at home until yesterday when he struggled at this to the point he was exhausted and feeling panic. Since then he reports some abdominal pain which is now better and some dyspnea. The abdominal pain was epigastric. He thought he might have had some chest tightness which was mild and felt a little indigestion which he attributed to reflux. He did not have a fever. He has not been vomiting. He does not have a history of heart disease. He does have dyslipidemia diabetes and hypertension all of which are being treated. Review of Systems Narrative: Other than the symptoms described above he reports no new symptoms or problems recently. [facility] Medical History (Updated 02/29/24 @ 20:17 by Noel Bonilla MD) Musculoskeletal immobility ?Z74.09 - Other reduced mobility (ICD-10) Non-STEMI (non-ST elevated myocardial infarction) ?I21.4 - Non-ST elevation (NSTEMI) myocardial infarction (ICD-10) Spinal stenosis at L4-L5 level ?M48.061 - Spinal stenosis, lumbar region without neurogenic claudication (ICD-10) Bilateral inguinal hernia ?K40.20 - Bilateral inguinal hernia, without obstruction or gangrene, not specified as recurrent (ICD-10) ED (erectile dysfunction) ?N52.9 - Male erectile dysfunction, unspecified (ICD-10) Hyperlipidemia, unspecified ?E78.5 - Hyperlipidemia, unspecified (ICD-10) Incomplete emptying of bladder ?R33.9 - Retention of urine, unspecified (ICD-10) Muscular atrophy ?M62.50 - Muscle wasting and atrophy, not elsewhere classified, unspecified site (ICD-10) Major depressive disorder ?F32.9 - Major depressive disorder, single episode, unspecified (ICD-10) GERD (gastroesophageal reflux disease) ?K21.9 - Gastro-esophageal reflux disease without esophagitis (ICD-10) Insomnia ?G47.00 - Insomnia, unspecified (ICD-10) Neuropathy, peripheral ?G62.9 - Polyneuropathy, unspecified (ICD-10) Left foot drop ?M21.372 - Foot drop, left foot (ICD-10) Neuropathy ?G62.9 - Polyneuropathy, unspecified (ICD-10) DM (diabetes mellitus), type 2 ?E11.9 - Type 2 diabetes mellitus without complications (ICD-10) Hypertension ?I10 - Essential (primary) hypertension (ICD-10) Surgical History H/O right wrist surgery ?Z98.890 - Other specified postprocedural states (ICD-10) S/P TURP (transurethral resection of prostate) ?Z90.79 - Acquired absence of other genital organ(s) (ICD-10) History of colectomy ?Z90.49 - Acquired absence of other specified parts of digestive tract (ICD- 10) History of cataract removal with insertion of prosthetic lens ?Z98.49 - Cataract extraction status, unspecified eye (ICD-10) ?Z96.1 - Presence of intraocular lens (ICD-10) History of hammertoe correction ?Z98.890 - Other specified postprocedural states (ICD-10) ?Z87.39 - Personal history of other diseases of the musculoskeletal system and connective tissue (ICD-10) No significant past surgical history Family History (Updated 02/29/24 @ 20:09 by Noel Bonilla MD) Brother Diabetes Heart disease Multiple sclerosis Sister Cancer of kidney Father Alcohol dependence Alzheimers disease Social History (Updated 02/29/24 @ 20:11 by Noel Bonilla MD) Narrative: He lives at [place] with his , Honey. Honey is healthcare power of collections attorney. DNR. Remote history of smoking, 55 years ago. Rarely drinks alcohol. Primarily wheelchair-bound with difficulties with bed to chair transfer. Smoking Status: Former smoker What tobacco products do you use: cigarettes Smoking quit date/years: >15 years ago Do you use any of these nicotine containing products: None Second hand tobacco smoke exposure: Yes How often do you have a drink containing alcohol: 2-4 times a month How many standard drinks containing alcohol do you have on a typical day: 1 or 2 How often do you have six or more drinks on one occasion: Never AUDIT-C Alcohol total score: 2 Non-prescribed substance use: denies use Caffeine: Yes service: No Meds Home Medications and Allergies Home Medications ?Medication ?Instructions ?Recorded ?Confirmed ?Type lisinopril 10 1 tab PO DAILY 10/29/21 02/29/24 History mg-hydrochlorothiazide 12.5 mg tablet metformin 500 mg tablet,extended 1,000 mg PO BID 10/29/21 02/29/24 History release 24 hr eszopiclone 3 mg tablet (Lunesta) 3 - 6 mg PO HS PRN 11/04/21 02/29/24 History gabapentin 300 mg capsule 600 mg PO BID@,14 11/04/21 02/29/24 History (Neurontin) multivitamin 1 tab PO DAILY 11/04/21 02/29/24 History omeprazole 20 mg capsule,delayed 20 mg PO DAILY 11/04/21 02/29/24 History release simvastatin 40 mg tablet (Zocor) 40 mg PO HS 11/04/21 02/29/24 History cholecalciferol (vitamin D3) 25 25 mcg PO DAILY 02/29/24 02/29/24 History mcg (1,000 unit) tablet gabapentin 300 mg capsule 1,200 mg PO HS 02/29/24 02/29/24 History methocarbamol 750 mg tablet 750 mg PO TID PRN muscle spasm 02/29/24 02/29/24 History Allergies Allergy/AdvReac Type Severity Reaction Status Date / Time duloxetine Allergy emotional Verified 02/29/24 12:30 irritability metronidazole Allergy severe GI Verified 02/29/24 12:30 irritability trazodone Allergy Anxiety Verified 02/29/24 12:30 Exam Narrative: Exam Narrative: He is alert and appears in no obvious distress. He gives his own history. Head is without trauma. Oropharynx with small airway. Neck is supple without mass or adenopathy. No jugular venous distension. Respirations are clear to auscultation without wheezing rales or rhonchi. Cardiovascular: S1, S2, regular rate and rhythm. Abdomen: Bowel sounds active. Abdomen is soft without tenderness or mass. Lower extremities with diminished pedal pulses. They are somewhat cool to touch. No edema. Strength with hip flexion, knee flexion and extension, ankle dorsiflexion and plantar flexion bilaterally are 5/5. He struggles mightily to move from supine to sitting even using the trapeze bar. Const: Vital Signs, click to edit/add: Vital Signs - 24 hr 02/29/24 13:36 02/29/24 14:45 02/29/24 14:46 Temperature 97.2 F L Pulse Rate 80 79 Pulse Rate [Right Pulse Oximeter] 85 Respiratory Rate 20 Blood Pressure 120/79 Blood Pressure [Ri ght Upper Arm] 108/69 Pulse Oximetry 95 95 96 Oxygen Delivery Me thod Room Air 02/29/24 15:00 02/29/24 15:01 02/29/24 15:15 Temperature Pulse Rate 79 81 75 Pulse Rate [Right Pulse Oximeter] Respiratory Rate Blood Pressure 112/95 H Blood Pressure [Ri ght Upper Arm] Pulse Oximetry 93 94 93 Oxygen Delivery Me thod 02/29/24 15:30 02/29/24 15:31 02/29/24 15:45 Temperature Pulse Rate 85 84 78 Pulse Rate [Right Pulse Oximeter] Respiratory Rate Blood Pressure 112/77 Blood Pressure [Ri ght Upper Arm] Pulse Oximetry 95 92 94 Oxygen Delivery Me thod 02/29/24 16:00 02/29/24 16:01 02/29/24 16:15 Temperature Pulse Rate 90 84 83 Pulse Rate [Right Pulse Oximeter] Respiratory Rate Blood Pressure 127/82 Blood Pressure [Ri ght Upper Arm] Pulse Oximetry 96 96 95 Oxygen Delivery Me thod 02/29/24 16:30 02/29/24 16:31 02/29/24 16:45 Temperature Pulse Rate 90 83 85 Pulse Rate [Right Pulse Oximeter] Respiratory Rate Blood Pressure 119/79 Blood Pressure [Ri ght Upper Arm] Pulse Oximetry 94 96 92 Oxygen Delivery Me thod 02/29/24 17:00 02/29/24 17:02 02/29/24 17:15 Temperature Pulse Rate 83 85 83 Pulse Rate [Right Pulse Oximeter] Respiratory Rate Blood Pressure 95/75 Blood Pressure [Ri ght Upper Arm] Pulse Oximetry 94 94 95 Oxygen Delivery Me thod 02/29/24 17:30 02/29/24 17:31 02/29/24 17:45 Temperature Pulse Rate 80 83 82 Pulse Rate [Right Pulse Oximeter] Respiratory Rate Blood Pressure 103/69 Blood Pressure [Ri ght Upper Arm] Pulse Oximetry 94 94 94 Oxygen Delivery Me thod 02/29/24 18:00 02/29/24 18:01 02/29/24 18:05 Temperature Pulse Rate 82 82 82 Pulse Rate [Right Pulse Oximeter] Respiratory Rate Blood Pressure 103/71 100/72 Blood Pressure [Ri ght Upper Arm] Pulse Oximetry 92 91 94 Oxygen Delivery Me thod 02/29/24 18:06 02/29/24 18:45 Temperature Pulse Rate 81 Pulse Rate [Right Pulse Oximeter] Respiratory Rate 20 Blood Pressure Blood Pressure [Ri ght Upper Arm] Pulse Oximetry 93 95 Oxygen Delivery Me thod Room Air Documenting provider has reviewed patient's vital signs: yes Hospitalist - H&P: Result Labs Labs: Short CBC 02/29/24 Range/Units 15:28 WBC 7.77 (4.50-11.00) K/uL Hgb 13.2 L (13.5-17.5) gm/dL Hct 39.2 (37.0-53.0) % Plt Count 274 (140-440) K/uL BMP 02/29/24 15:28 Sodium 126 L Potassium 4.2 Chloride 94 L Carbon Dioxide 23 BUN 16 Creatinine 0.7 Glucose 141 H Calcium 9.5 Cardiac Enzymes 02/29/24 02/29/24 Range/Units 15:28 17:27 Troponin I 1.21 H* 1.08 H* (0.01-0.04) ng/mL Liver Function 02/29/24 Range/Units 15:28 Total Bilirubin 0.6 (0.1-1.5) mg/dL AST 38 H (12-35) U/L ALT 23 (4-50) U/L Alkaline Phosphatase 67 (40-150) U/L Albumin 4.7 (3.3-5.0) g/dL Urine 02/29/24 Range/Units 16:00 Urine Color Yellow (Yellow) Urine Appearance Clear (Clear) Urine pH 7.0 (5.0-8.5) Ur Specific [place] 1.020 (1.000-1.030) Urine Protein 2+ A (Negative) Urine Glucose (UA) Negative (Negative) ECG Attestation: I personally reviewed and interpreted this ECG as follows: (Normal sinus rhythm with a rate of 81. First-degree AV block. Possible old septal infarct with Q-waves in V1 V2. No acute ischemic changes.) ECG interpretation date: 02/29/24 Imaging Chest x-ray: Radiologist's impression: Indication: Shortness of breath Technique: Chest 1 view Comparison: None Findings/Impression: Cardiovascular and mediastinum: Normal heart size with mild aortic tortuosity and atherosclerotic calcification. Lungs and pleural space: Lungs are clear. No sign of infiltrate or mass. No sign of pleural effusion. No pneumothorax. Bones and soft tissues: No acute findings. Assessment and Plan Assessment and plan (1) Non-STEMI (non-ST elevated myocardial infarction): Problem comment: He has had mild ischemic symptoms which have resolved. Discussion with card iology recommended conservative management and consider transfer for invasive therapy if getting ischemic symptoms. Aspirin, heparin, statin, beta-iris, nitrate if tolerated. Obtain echo Status: Acute (2) Neuropathy: Problem comment: Moderately severe and disabling. Developed prior to the diagnosis of diabetes. Status: Acute (3) Spinal stenosis at L4-L5 level: Problem comment: Moderately severe and disabling. Eighteen months ago responded well to steroid injection. Less response four months ago Status: Acute (4) Musculoskeletal immobility: Problem comment: Patient has disabling immobility. Historically this is been suspected to be related to his spinal stenosis and peripheral neuropathy. He appears to have relative weakness of his core also contributing. PT and OT to evaluate Status: Acute Plan 88-year-old male with acute non STEMI admitted to the hospital for conservative management with IV heparin, aspirin, beta-iris, statin, Imdur. Close monitoring of vital signs and symptoms. In addition patient has significant progression of disability. Will address that here to see if he can return home to live with his over need higher level of care. Total Time Spent Total Time Spent: Total time spent today is 75 minutes in evaluation and management, review of past medical records and discussion with patient and other providers management of non STEMI
[2024-02-29] MEDS: GABAPENTIN 300 MG CAPSULE 1200 MG PO (21:12)
[2024-02-29] MEDS: METFORMIN ER 500 MG 1000 MG PO (21:13)
[2024-02-29] MEDS: SIMVASTATIN 40 MG TABLET PO (21:13)
[2024-02-29] MEDS: METOPROLOL TARTRATE 25 MG TABLET 12.5 MG PO (21:13)
[2024-03-01] VITALS (9 sets, daily range): BP systolic 98–145; BP diastolic 60–96; PULSE 71–90; RESP 18–22; TEMP 36.5–37.1; O2SAT 93–96
[2024-03-01 00:37] LABS: Partial Thromboplastin Time* 57 Seconds (23-33)
--- NOTE | 2024-03-01 06:48 | PC.NURSE ---
Shift note: Patient is alert and oriented. Pelvic transfer with A2. At 2330, he complained of epigastric pain. He stated that this is similar to the pain I had before the my heart failure. EKG done and given the MD for review. MD ordered to continue to monitor, if pain worsened, we should alert him to send patient to critical care facility. Patient endorses reduction of pain and rated pain this morning at 2/10. He uses urinal at the side of bed with A2. Vitally stable. Patient had adequate sleep, no SOB.
[2024-03-01 07:18] LABS: Basophils Absolute Auto 0.02 K/uL (0.00-0.30); Basophils Percent Auto 0.2 % (0.0-3.0); Eosinophils Absolute Auto 0.05 K/uL (0.00-0.50); Eosinophils Percent Auto 0.6 % (0.0-7.0); Hematocrit 36.9 % (37.0-53.0); Hemoglobin* 12.4 gm/dL (13.5-17.5); Immature Granulocytes Abs Auto 0.01 K/uL (0.00-0.30); Immature Granulocytes Pct Auto 0.1 %; Lymphocytes Absolute Auto 1.77 K/uL (0.90-2.90); Lymphocytes Percent Auto 21.8 % (20-44); Mean Corpuscular HGB Conc 34 gm/dL (32-36); Mean Corpuscular Hemoglobin 27 pg (26-34); Mean Corpuscular Volume 80 fL (80-100); Monocytes Percent Auto 8.8 % (0.0-11.0); Neutrophils Absolute Auto 5.55 K/uL (1.7-7.0); Neutrophils Percent Auto 68.5 % (42.0-72.0); Platelet Count* 285 K/uL (140-440); RDW Coefficient of Variation % 13.4 % (11.5-15.5); Red Blood Count 4.61 m/uL (4.30-5.90); White Blood Count* 8.11 K/uL (4.50-11.00)
[2024-03-01 07:33] LABS: Chloride* 94 mmol/L (96-114); Potassium* 3.7 mmol/L (3.6-5.1); Sodium* 125 mmol/L (135-149)
[2024-03-01 07:36] LABS: Anion Gap 9 mEq/L (7-15); Blood Urea Nitrogen* 18 mg/dL (7-30); Carbon Dioxide* 22 mmol/L (20-32); Creatinine* 0.7 mg/dL (0.5-1.5); Est. Creatinine Clearance* 57.12; Estimated Glomerular Filt Rate 89 ml/min; Glucose* 127 mg/dL (60-115); Slide Review Reflex No
[2024-03-01 07:37] LABS: Calcium* 8.9 mg/dL (8.4-10.6)
[2024-03-01 07:48] LABS: Partial Thromboplastin Time* 55 Seconds (23-33)
[2024-03-01 07:52] LABS: Troponin I* 0.71 ng/mL (0.01-0.04)
[2024-03-01] MEDS: ACETAMINOPHEN 325 MG TABLET 650 MG PO ×2 (08:39→19:34)
[2024-03-01] MEDS: OMEPRAZOLE 20 MG CAPSULE DR PO (08:40)
[2024-03-01] MEDS: GABAPENTIN 300 MG CAPSULE 600 MG PO ×2 (08:40→13:53)
[2024-03-01] MEDS: METOPROLOL TARTRATE 25 MG TABLET 12.5 MG PO ×2 (08:40→20:55)
[2024-03-01] MEDS: ASPIRIN 81 MG TABLET EC PO (08:40)
[2024-03-01] MEDS: METFORMIN ER 500 MG 1000 MG PO ×2 (08:40→20:54)
[2024-03-01 11:48] LABS: INR 0.98 (0.91-1.10); Prothrombin Time 13.6 Seconds
[2024-03-01 12:22] LABS: Partial Thromboplastin Time* 57 Seconds (23-33)
--- NOTE | 2024-03-01 13:38 | P.IMPN_ITS ---
Progress Note: A&P Assessment and plan (1) Non-STEMI (non-ST elevated myocardial infarction): Problem details: He has had mild ischemic symptoms which have resolved. Discussion with cardiology recommended conservative management and consider transfer for invasive therapy if getting ischemic symptoms. Aspirin, heparin, statin, beta- iris, nitrate if tolerated. Obtain echo. Relatively low blood pressure may limit cardiovascular therapies Status: Acute (2) Neuropathy: Problem details: Moderately severe and disabling. Developed prior to the diagnosis of diabetes. 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 Eighteen months ago responded well to steroid injection. Less response four months ago Status: Acute (4) Musculoskeletal immobility: Problem details: Patient has disabling immobility. Historically this is been suspected to be related to his spinal stenosis and peripheral neuropathy. He appears to have relative weakness of his core also contributing. PT and OT to evaluate Status: Acute (5) Hyponatremia: Problem details: Acute on chronic. Check urine sodium, fluid restriction, hold hydrochlorothiazide Status: Acute Plan Continue in-hospital for cardiovascular monitoring, IV heparin, monitoring of vital signs including hypotension in light of new therapies for non STEMI. Plan of care discussed with the patient he is in agreement with this. Total time spent today is 40 minutes in evaluation and management discussing with patient plan of care Subjective Date Seen: 03/01/24 Interval history: Prince Irizarry is a 88 year old male with diabetes mellitus, hypertension, hyperlipidemia, spinal stenosis, neuropathy, prostate cancer presents the hospital with a 2 day history of stiffness/weakness causing immobility and abdominal pain and dyspnea. At baseline he reports fairly severe immobility related to polyneuropathy and spinal stenosis. His biggest challenges getting from supine in bed to sitting up to transferring to the wheelchair. He is nonambulatory. He has been managing at home until yesterday when he struggled at this to the point he was exhausted and feeling panic. Since then he reports some abdominal pain which is now better and some dyspnea. The abdominal pain was epigastric. He thought he might have had some chest tightness which was mild and felt a little indigestion which he attributed to reflux. He did not have a fever. He has not been vomiting. He does not have a history of heart disease. He does have dyslipidemia diabetes and hypertension all of which are being treated. 03/01/2024: Overnight he continued to report episodes of epigastric discomfort. Not clearly exertional related. He also continues to feel profoundly weak. He still needing assistance with transfer bed to chair. No new symptoms of illness, fever, dyspnea, chest pain, cough Exam Narrative: Exam Narrative: He is alert and appears in no distress. Respirations are clear to auscultation. Breathing is unlabored. Cardiovascular: S1, S2, regular rate and rhythm. No murmur gallop or rub. Abdomen: Bowel sounds active. Abdomen is soft without tenderness or mass. He is observed to struggle with sitting up in bed. No significant edema. Const: Vital Signs, click to edit/add: Vital Signs - 24 hr 02/29/24 14:45 02/29/24 14:46 02/29/24 15:00 Temperature Pulse Rate 80 79 79 Pulse Rate [Right Pulse Oximeter] Respiratory Rate Blood Pressure 120/79 Blood Pressure [Ri ght Arm] Pulse Oximetry 95 96 93 Oxygen Delivery Id thod 02/29/24 15:01 02/29/24 15:15 02/29/24 15:30 Temperature Pulse Rate 81 75 85 Pulse Rate [Right Pulse Oximeter] Respiratory Rate Blood Pressure 112/95 H Blood Pressure [Ri ght Arm] Pulse Oximetry 94 93 95 Oxygen Delivery Id thod 02/29/24 15:31 02/29/24 15:45 02/29/24 16:00 Temperature Pulse Rate 84 78 90 Pulse Rate [Right Pulse Oximeter] Respiratory Rate Blood Pressure 112/77 Blood Pressure [Ri ght Arm] Pulse Oximetry 92 94 96 Oxygen Delivery Id thod 02/29/24 16:01 02/29/24 16:15 02/29/24 16:30 Temperature Pulse Rate 84 83 90 Pulse Rate [Right Pulse Oximeter] Respiratory Rate Blood Pressure 127/82 Blood Pressure [Ri ght Arm] Pulse Oximetry 96 95 94 Oxygen Delivery Id thod 02/29/24 16:31 02/29/24 16:45 02/29/24 17:00 Temperature Pulse Rate 83 85 83 Pulse Rate [Right Pulse Oximeter] Respiratory Rate Blood Pressure 119/79 Blood Pressure [Ri ght Arm] Pulse Oximetry 96 92 94 Oxygen Delivery Id thod 02/29/24 17:02 02/29/24 17:15 02/29/24 17:30 Temperature Pulse Rate 85 83 80 Pulse Rate [Right Pulse Oximeter] Respiratory Rate Blood Pressure 95/75 Blood Pressure [Ri ght Arm] Pulse Oximetry 94 95 94 Oxygen Delivery Me thod 02/29/24 17:31 02/29/24 17:45 02/29/24 18:00 Temperature Pulse Rate 83 82 82 Pulse Rate [Right Pulse Oximeter] Respiratory Rate Blood Pressure 103/69 Blood Pressure [Ri ght Arm] Pulse Oximetry 94 94 92 Oxygen Delivery Me thod 02/29/24 18:01 02/29/24 18:05 02/29/24 18:06 Temperature Pulse Rate 82 82 81 Pulse Rate [Right Pulse Oximeter] Respiratory Rate Blood Pressure 103/71 100/72 Blood Pressure [Ri ght Arm] Pulse Oximetry 91 94 93 Oxygen Delivery Me thod 02/29/24 18:45 02/29/24 20:52 02/29/24 21:06 Temperature 98.3 F 98.3 F Pulse Rate Pulse Rate [Right Pulse Oximeter] 81 81 Respiratory Rate 20 20 20 Blood Pressure Blood Pressure [Ri ght Arm] 101/67 Pulse Oximetry 95 93 93 [facility] Room Air 02/29/24 22:46 02/29/24 22:46 02/29/24 23:00 Temperature 98 F Pulse Rate 74 Pulse Rate [Right Pulse Oximeter] 77 77 Respiratory Rate 20 20 Blood Pressure Blood Pressure [Ri ght Arm] 98/65 Pulse Oximetry 92 Oxygen Delivery [facility] Room Air 03/01/24 03:00 03/01/24 07:06 03/01/24 07:44 Temperature 98 F 98.1 F Pulse Rate 77 Pulse Rate [Right Pulse Oximeter] 72 77 Respiratory Rate 20 22 Blood Pressure Blood Pressure [Ri ght Arm] 98/60 106/72 Pulse Oximetry 93 96 Oxygen Delivery [facility] Room Air Room Air 03/01/24 07:44 03/01/24 11:28 Temperature 97.7 F Pulse Rate Pulse Rate [Right Pulse Oximeter] 77 71 Respiratory Rate 22 18 Blood Pressure Blood Pressure [Ri ght Arm] 101/66 Pulse Oximetry 93 [facility] Labs Labs: Laboratory Results - last 24 hr 02/29/24 02/29/24 02/29/24 15:00 15:28 16:00 WBC 7.77 RBC 4.88 Hgb 13.2 L Hct 39.2 MCV 80 MCH 27 MCHC 34 RDW Coeff of Tamir 13.3 Plt Count 274 Neut % (Auto) 73.2 H Lymph % (Auto) 18.5 L [place] % (Auto) 7.6 Eos % (Auto) 0.3 Baso % (Auto) 0.3 Neut # (Auto) 5.70 Lymph # (Auto) 1.40 [place] # (Auto) 0.60 Eos # (Auto) 0.02 Baso # (Auto) 0.02 Abs Immat Gran (auto) 0.01 Imm/Tot Granulo (auto) 0.1 INR 0.92 APTT 39 H D-Dimer Quant (PE/DVT) 0.28 VBG pH 7.424 VBG pCO2 38 L VBG pO2 34.4 VBG HCO3 25 Sodium 126 L Potassium 4.2 Chloride 94 L Carbon Dioxide 23 Anion Gap 9 BUN 16 Creatinine 0.7 Estimated Creat Clear 57.12 Estimated GFR 89 Glucose 141 H Lactate 1.8 Calcium 9.5 Magnesium 1.6 Total Bilirubin 0.6 AST 38 H ALT 23 Alkaline Phosphatase 67 Troponin I 1.21 H* C-Reactive Protein 0.9 NT-Pro-B Natriuret Pep 52249 Total Protein 7.4 Albumin 4.7 Lipase 77 Urine Color Yellow Urine Appearance Clear Urine pH 7.0 Ur Specific [place] 1.020 Urine Protein 2+ A Urine Glucose (UA) Negative Urine Ketones 1+ A Urine Blood Negative Urine Nitrite Negative Urine Bilirubin Negative Urine Urobilinogen 0.2 Ur Leukocyte Esterase Negative Urine RBC 0-2 Urine WBC 0-2 Ur Squamous Epith Cells Few Urine Bacteria None SARS-CoV-2 (PCR) Negative SARS-CoV-2 Influenza Type A (PCR) Negative PCR FLU A Influenza Type B (PCR) Negative PCR FLU B RSV (PCR) Negative PCR RSV Lab Acknowledgement 02/29/24 02/29/24 03/01/24 16:27 17:27 00:12 WBC RBC Hgb Hct MCV MCH MCHC RDW Coeff of Tamir Plt Count Neut % (Auto) Lymph % (Auto) [place] % (Auto) Eos % (Auto) Baso % (Auto) Neut # (Auto) Lymph # (Auto) [place] # (Auto) Eos # (Auto) Baso # (Auto) Abs Immat Gran (auto) Imm/Tot Granulo (auto) INR APTT 57 H D-Dimer Quant (PE/DVT) VBG pH VBG pCO2 VBG pO2 VBG HCO3 Sodium Potassium Chloride Carbon Dioxide Anion Gap BUN Creatinine Estimated Creat Clear Estimated GFR Glucose Lactate Calcium Magnesium Total Bilirubin AST ALT Alkaline Phosphatase Troponin I 1.08 H* C-Reactive Protein NT-Pro-B Natriuret Pep Total Protein Albumin Lipase Urine Color Urine Appearance Urine pH Ur Specific [place] Urine Protein Urine Glucose (UA) Urine Ketones Urine Blood Urine Nitrite Urine Bilirubin Urine Urobilinogen Ur Leukocyte Esterase Urine RBC Urine WBC Ur Squamous Epith Cells Urine Bacteria SARS-CoV-2 (PCR) Influenza Type A (PCR) Influenza Type B (PCR) RSV (PCR) Lab Acknowledgement Test Added 03/01/24 03/01/24 06:03 11:52 WBC 8.11 RBC 4.61 Hgb 12.4 L Hct 36.9 L MCV 80 MCH 27 MCHC 34 RDW Coeff of Tamir 13.4 Plt Count 285 Neut % (Auto) 68.5 Lymph % (Auto) 21.8 [place] % (Auto) 8.8 Eos % (Auto) 0.6 Baso % (Auto) 0.2 Neut # (Auto) 5.55 Lymph # (Auto) 1.77 [place] # (Auto) 0.70 Eos # (Auto) 0.05 Baso # (Auto) 0.02 Abs Immat Gran (auto) 0.01 Imm/Tot Granulo (auto) 0.1 INR 0.98 APTT 55 H 57 H D-Dimer Quant (PE/DVT) VBG pH VBG pCO2 VBG pO2 VBG HCO3 Sodium 125 L Potassium 3.7 Chloride 94 L Carbon Dioxide 22 Anion Gap 9 BUN 18 Creatinine 0.7 Estimated Creat Clear 57.12 Estimated GFR 89 Glucose 127 H Lactate Calcium 8.9 Magnesium Total Bilirubin AST ALT Alkaline Phosphatase Troponin I 0.71 H* C-Reactive Protein NT-Pro-B Natriuret Pep Total Protein Albumin Lipase Urine Color Urine Appearance Urine pH Ur Specific [place] Urine Protein Urine Glucose (UA) Urine Ketones Urine Blood Urine Nitrite Urine Bilirubin Urine Urobilinogen Ur Leukocyte Esterase Urine RBC Urine WBC Ur Squamous Epith Cells Urine Bacteria SARS-CoV-2 (PCR) Influenza Type A (PCR) Influenza Type B (PCR) RSV (PCR) Lab Acknowledgement ECG Attestation: I personally reviewed and interpreted this ECG as follows: (Sinus rhythm of 79 with a first-degree AV block. No ST-T changes. Similar to yesterday)
[2024-03-01 14:40] LABS: Sodium Urine Random* 61
[2024-03-01] MEDS: HEPARIN 25,000 UNIT/500 ML BAG 20 UNIT IV (18:45)
--- NOTE | 2024-03-01 18:50 | PC.NURSE ---
End of Shift [id number]: Patient pleasant and cooperative. Patient vitally stable, lungs clear, BS WNL, IV running Heparin at 20 ml. Patient 1 assist/walker pivot to chair. Patient rates pain at most 5/10, usually in the legs but patient also had a headache today, tylenol given once. APPT's were 55 and 57, no change in heparin dose all shift. Patient has been up in chair for meals. Patient urinating well and had 2 BM, one was slightly incontinent BM. Patient tolerating regular diet. Tele= first degree HB.
[2024-03-01] MEDS: GABAPENTIN 300 MG CAPSULE 1200 MG PO (20:54)
[2024-03-01] MEDS: SIMVASTATIN 40 MG TABLET PO (20:55)
[2024-03-01] MEDS: SODIUM CHLORIDE 0.9 % (FLUSH) 10 ML SYRINGE 5 ML IVF (20:56)
[2024-03-02] VITALS (7 sets, daily range): BP systolic 117–131; BP diastolic 77–85; PULSE 69–90; RESP 16–18; TEMP 36.7–37.3; O2SAT 94–96
--- NOTE | 2024-03-02 06:24 | PC.NURSE ---
Addendum entered by Sandra Tucker RN 03/02/24 06:48: PTT drawn with AM labs with result currently pending. Pt remains on Heparin drip- see EMAR for details. Original Note: End of shift note [id number]: Pt alert & oriented ?x 4 and able to make needs known. He requires assist of 2 with FWW and gait belt for pivot transferring. Pt has been continent of bladder using urinal. PRN Tylenol administered for c/o headache which was effective upon followup. VSS- pt has been afebrile and on RA throughout the shift. No c/o CP or N/V noted. Bed alarm on, call light within reach. ?
[2024-03-02 06:34] LABS: Basophils Absolute Auto 0.03 K/uL (0.00-0.30); Basophils Percent Auto 0.4 % (0.0-3.0); Eosinophils Absolute Auto 0.06 K/uL (0.00-0.50); Eosinophils Percent Auto 0.9 % (0.0-7.0); Hematocrit 35.3 % (37.0-53.0); Immature Granulocytes Abs Auto 0.01 K/uL (0.00-0.30); Immature Granulocytes Pct Auto 0.1 %; Lymphocytes Absolute Auto 1.72 K/uL (0.90-2.90); Lymphocytes Percent Auto 24.4 % (20-44); Mean Corpuscular HGB Conc 34 gm/dL (32-36); Mean Corpuscular Hemoglobin 27 pg (26-34); Mean Corpuscular Volume 80 fL (80-100); Monocytes Percent Auto 9.4 % (0.0-11.0); Neutrophils Absolute Auto 4.56 K/uL (1.7-7.0); Neutrophils Percent Auto 64.8 % (42.0-72.0); Platelet Count* 259 K/uL (140-440); RDW Coefficient of Variation % 13.2 % (11.5-15.5); Red Blood Count 4.41 m/uL (4.30-5.90); White Blood Count* 7.04 K/uL (4.50-11.00)
[2024-03-02 06:35] LABS: Slide Review Reflex No
[2024-03-02 06:55] LABS: Chloride* 95 mmol/L (96-114); Sodium* 127 mmol/L (135-149)
[2024-03-02 06:56] LABS: Potassium* 3.7 mmol/L (3.6-5.1)
[2024-03-02 06:58] LABS: Anion Gap 10 mEq/L (7-15); Carbon Dioxide* 22 mmol/L (20-32); Creatinine* 0.7 mg/dL (0.5-1.5); Est. Creatinine Clearance* 57.12; Estimated Glomerular Filt Rate 89 ml/min
[2024-03-02 06:59] LABS: Blood Urea Nitrogen* 16 mg/dL (7-30); Calcium* 8.7 mg/dL (8.4-10.6); Glucose* 119 mg/dL (60-115)
[2024-03-02 07:01] LABS: Partial Thromboplastin Time* 56 Seconds (23-33)
[2024-03-02 07:39] LABS: Troponin I* 0.36 ng/mL (0.01-0.04)
[2024-03-02] MEDS: OMEPRAZOLE 20 MG CAPSULE DR PO (07:47)
[2024-03-02] MEDS: METOPROLOL SUCCINATE (XL) 25 MG TAB PO (09:01)
[2024-03-02] MEDS: ASPIRIN 81 MG TABLET EC PO (09:02)
[2024-03-02] MEDS: GABAPENTIN 300 MG CAPSULE 600 MG PO ×2 (09:02→13:57)
[2024-03-02] MEDS: METFORMIN ER 500 MG 1000 MG PO ×2 (09:02→21:04)
[2024-03-02] MEDS: TORSEMIDE 5 MG TABLET PO (12:19)
--- NOTE | 2024-03-02 14:52 | PC.NURSE ---
End of Shift: Patient pleasant and cooperative, A&O. VSS, afebrile. SpO2 maintained above 90% on RA. Patient reports abdominal pain this shift, declines PRN medication, resolved on its own. Patient declined breakfast this shift due to abdominal pain. Tolerating regular diet this afternoon. A1 with walker and gait belt. ?
--- NOTE | 2024-03-02 15:31 | P.IMPN_ITS ---
Progress Note: A&P Assessment and plan (1) Non-STEMI (non-ST elevated myocardial infarction): Problem details: Possibly had ischemic symptoms early on with some epigastric discomfort. That has fluctuated since then. No chest pain. No dyspnea with walking today. Treated with aspirin, heparin, statin, beta-iris. Add back in his normal lisinopril. Stop heparin. Discussed with Cardiology who offered angiogram for non-STEMI with reduced ejection fraction. He reports that this time that that is not consistent with his goals of care so continue medical management. Reconsider intervention if he is significantly symptomatic with heart disease. Status: Acute (2) Neuropathy: Problem details: Moderately severe and disabling. Developed prior to the diagnosis of diabetes. 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 Eighteen months ago responded well to steroid injection. Less response four months ago Status: Acute (4) Musculoskeletal immobility: Problem details: Patient has disabling immobility. Historically this is been suspected to be related to his spinal stenosis and peripheral neuropathy. He appears to have relative weakness of his core also contributing. PT and OT to evaluate. Able to walk in the hallway today for the 1st time. Had no chest pain or dyspnea Status: Acute (5) Hyponatremia: Problem details: Acute on chronic. Check urine sodium, fluid restriction, hold hydrochlorothiazide. Improving Status: Acute Plan Continue in hospital for management of non STEMI, heart failure and ongoing evaluation management of disabilities. Total time spent today is 55 minutes, mostly in conversation with patient and Cardiology about ongoing evaluation and management of heart disease Subjective Date Seen: 03/02/24 Interval history: Prince Irizarry is a 88 year old male with diabetes mellitus, hypertension, hyperlipidemia, spinal stenosis, neuropathy, prostate cancer presents the hospital with a 2 day history of stiffness/weakness causing immobility and abdominal pain and dyspnea. At baseline he reports fairly severe immobility related to polyneuropathy and spinal stenosis. His biggest challenges getting from supine in bed to sitting up to transferring to the wheelchair. He is nonambulatory. He has been managing at home until yesterday when he struggled at this to the point he was exhausted and feeling panic. Since then he reports some abdominal pain which is now better and some dyspnea. The abdominal pain was epigastric. He thought he might have had some chest tightness which was mild and felt a little indigestion which he attributed to reflux. He did not have a fever. He has not been vomiting. He does not have a history of heart disease. He does have dyslipidemia diabetes and hypertension all of which are being treated. 03/01/2024: Overnight he continued to report episodes of epigastric discomfort. Not clearly exertional related. He also continues to feel profoundly weak. He still needing assistance with transfer bed to chair. No new symptoms of illness, fever, dyspnea, chest pain, cough 03/02/2024: Patient reports some epigastric discomfort, primarily queasiness and nausea without vomiting. Poor appetite today Not really having pain. Specifically denies chest pain or dyspnea. Echocardiogram yesterday showed ejection fraction of 35-40%. I discussed his care with Cardiology and with the patient. Cardiology indicates that the standard procedure for a non STEMI with reduced ejection fraction would be coronary angiogram if consistent with goals of care. I discussed with the patient and he decided that he did not want aggressive management, intervention, since he was not really having cardiac symptoms. He clearly states that his neurologic problems and physical disabilities are his primary concern at this point in his life. He would revisit further evaluation treatment of his coronary disease if he were having significant symptoms related to that. Exam Narrative: Exam Narrative: He is alert and appears in no distress. Respirations are clear to auscultation. Cardiovascular: S1, S2, regular rate and rhythm. Abdomen: Bowel sounds active. Abdomen is soft without tenderness or mass. Extremities without edema. Const: Vital Signs, click to edit/add: Vital Signs - 24 hr 03/01/24 15:51 03/01/24 15:51 03/01/24 19:30 Temperature 98.1 F 98.3 F Pulse Rate Pulse Rate [Right Pulse Oximeter] 71 80 74 Respiratory Rate 18 22 18 Blood Pressure [Ri t Arm] 145/96 H 123/75 Pulse Oximetry 94 95 Oxygen Delivery Me thod Room Air Room Air 03/01/24 23:00 03/01/24 23:00 03/01/24 23:20 Temperature 98.7 F Pulse Rate 81 Pulse Rate [Right Pulse Oximeter] 90 90 Respiratory Rate 18 18 Blood Pressure [Ri t Arm] 128/79 Pulse Oximetry 94 Oxygen Delivery Me thod Room Air 03/02/24 02:49 03/02/24 07:40 03/02/24 07:40 Temperature 98.8 F 98.1 F Pulse Rate Pulse Rate [Right Pulse Oximeter] 86 69 69 Respiratory Rate 18 18 18 Blood Pressure [Ri ght Arm] 117/78 117/81 Pulse Oximetry 96 94 Oxygen Delivery Me thod Room Air Room Air 03/02/24 09:31 03/02/24 11:35 Temperature 98.0 F Pulse Rate 71 Pulse Rate [Right Pulse Oximeter] 76 Respiratory Rate 18 Blood Pressure [Ri ght Arm] 121/78 Pulse Oximetry 96 Oxygen Delivery Me thod Room Air Documenting provider has reviewed patient's vital signs: yes Labs Labs: Laboratory Results - last 24 hr 03/02/24 03/02/24 05:54 06:57 WBC 7.04 RBC 4.41 Hgb 12.0 L Hct 35.3 L MCV 80 MCH 27 MCHC 34 RDW Coeff of Tamir 13.2 Plt Count 259 Neut % (Auto) 64.8 Lymph % (Auto) 24.4 [place] % (Auto) 9.4 Eos % (Auto) 0.9 Baso % (Auto) 0.4 Neut # (Auto) 4.56 Lymph # (Auto) 1.72 [place] # (Auto) 0.70 Eos # (Auto) 0.06 Baso # (Auto) 0.03 Abs Immat Gran (auto) 0.01 Imm/Tot Granulo (auto) 0.1 APTT 56 H Sodium 127 L Potassium 3.7 Chloride 95 L Carbon Dioxide 22 Anion Gap 10 BUN 16 Creatinine 0.7 Estimated Creat Clear 57.12 Estimated GFR 89 Glucose 119 H Calcium 8.7 Troponin I 0.36 H* Lab Acknowledgement Test Added
[2024-03-02] MEDS: GABAPENTIN 300 MG CAPSULE 1200 MG PO (21:04)
[2024-03-02] MEDS: SODIUM CHLORIDE 0.9 % (FLUSH) 10 ML SYRINGE 5 ML IVF (21:05)
[2024-03-02 21:24] LABS: Albumin* 4.3 g/dL (3.3-5.0); Chloride* 94 mmol/L (96-114); Sodium* 126 mmol/L (135-149)
[2024-03-02 21:27] LABS: Alanine Aminotransferase* 24 U/L (4-50); Alkaline Phosphatase* 58 U/L (40-150); Anion Gap 13 mEq/L (7-15); Aspartate Amino Transferase* 35 U/L (12-35); Bilirubin Total* 0.4 mg/dL (0.1-1.5); Blood Urea Nitrogen* 21 mg/dL (7-30); Carbon Dioxide* 19 mmol/L (20-32); Creatinine* 0.9 mg/dL (0.5-1.5); Est. Creatinine Clearance* 57.12; Estimated Glomerular Filt Rate 83 ml/min; Glucose* 154 mg/dL (60-115); Total Protein* 6.8 g/dL (6.0-8.3)
[2024-03-02 21:28] LABS: Calcium* 9.1 mg/dL (8.4-10.6)
[2024-03-02 21:46] LABS: Troponin I* 0.19 ng/mL (0.01-0.04)
[2024-03-02] MEDS: MELATONIN 3 MG TABLET PO (22:18)
--- NOTE | 2024-03-02 22:21 | P.CCN_ITS ---
Subjective Subjective Time Seen by Provider: 20:30 Date Seen: 03/02/24 Interval history: This is an 88-year-old male with diabetes mellitus, spinal stenosis, neuropathy, prostate cancer, hypertension, and hyperlipidemia who was admitted to the hospital a few days ago for stiffness, weakness, immobility, abdominal pain and dyspnea. He was found to have evidence of a non ST elevation RI. I was called to his room urgently because he was shaking uncontrollably. He appeared diaphoretic and was having generalized shaking although he was alert, oriented x3, and able to follow commands, including moving all extremities. The episode lasted for approximately 5 minutes and then started to resolve. The patient endorsed high anxiety at the time, a feeling of panic. He notes that he has had panic attacks before as well as muscle spasms in his back. He has episodes like this at home, but this was more severe than those. He says Ativan has worked for him in the past and, even though the episode had resolved, was requesting Ativan in order to prevent an episode happening again this evening. Objective Objective Data Details: Temperature 99.1?F, , blood pressure 131/85, pulse 90, respirations 18, O2 sats 95% on room air. General: [Awake, alert, oriented x3.] [No pallor.] [No jaundice.] Oropharynx: Clear. Mucous membranes [moist]. Cardiovascular: [Regular rate and rhythm]. [No murmurs, gallops, or rubs]. Respiratory: [Clear to auscultation bilaterally. No wheezes or crackles]. Abdomen: Bowel sounds [present]. [Soft, nondistended, nontender]. Extremities: [No] lower extremity edema. EKG: Sinus tachycardia with first-degree AV block, 104 beats per minute, abnormal QRS-T angle, consider primary T-wave abnormality. With the exception of a faster heart rate, this is similar in appearance to EKG from yesterday. Labs at 9:01 p.m.: Sodium 126, potassium 4, chloride 94 carbon dioxide 19, BUN 21, creatinine 0.9, glucose 154, troponin 0.19. Assessment and Plan Assessment and plan (1) Panic attack: Status: Acute (2) Muscle spasm: Status: Acute (3) Hyponatremia: Problem comment: Acute on chronic. Check urine sodium, fluid restriction, hold hydrochlorothiazide. Improving Status: Acute (4) Musculoskeletal immobility: Problem comment: Patient has disabling immobility. Historically this is been suspected to be related to his spinal stenosis and peripheral neuropathy. He appears to have relative weakness of his core also contributing. PT and OT to evaluate. Able to walk in the hallway today for the 1st time. Had no chest pain or dyspnea Status: Acute (5) Non-STEMI (non-ST elevated myocardial infarction): Problem comment: Possibly had ischemic symptoms early on with some epigastric discomfort. That has fluctuated since then. No chest pain. No dyspnea with walking today. Treated with aspirin, heparin, statin, beta-iris. Add back in his normal lisinopril. Stop heparin. Discussed with Cardiology who offered angiogram for non-STEMI with reduced ejection fraction. He reports that this time that that is not consistent with his goals of care so continue medical management. Reconsider intervention if he is significantly symptomatic with heart disease. Status: Acute (6) Neuropathy: Problem comment: Moderately severe and disabling. Developed prior to the diagnosis of diabetes. Status: Acute (7) Spinal stenosis at L4-L5 level: Problem comment: Moderately severe and disabling. Eighteen months ago responded well to steroid injection. Less response four months ago Status: Acute Plan 88-year-old with spinal stenosis at L4-L5 level who is here for a non ST- elevation RI. He had a witnessed episode of shaking and muscle spasms during w hich he remained alert and able to move all extremities and follow commands. He complains of panic attacks and episodes like this at home, although this was more severe. I think this was likely a panic attack caused by a muscle spasm from his back. Encouraged patient to use ice and heat on his back and do more sitting up in a chair rather than laying in the bed. You have checked an EKG as well as labs and I am not finding anything that would contribute to this situation. Troponin is down trending. Patient continues to have less intense episodes. Will try a dose of Ativan. Total Time Spent Total Time Spent: Prolonged Physician Services Today I spent 35 minutes seeing the patient, reviewing Expanse notes/diagno stics/labs, discussing the care plan with the patient, his family, and our nursing staff and documenting my impressions and plan in the medical record.
--- NOTE | 2024-03-02 23:24 | PC.NURSE ---
End of shift: Pt AXOX4, cooperative, and pleasant. Pt tolerating diet/fluids well. A1 GB and W. Pt up in chair for meal. Daughter came to visit and @ 2230, Pt had a muscle spasm episode and panic attack. Pts daughter grabbed Nay MARIE for assistance. Smearer entered the room, Pt tachypneic, restless, diaphoretic, shouting please do not touch me. VS: BP 176/106 HR: 123 T: 98.5. Smearer call for assistance from . EKG complete reading Sinus tachycardia. Bladder scan complete. Lab orders received. Pt reported having these episodes 3-4 times a week. Pt requesting Lorazepam. Pt is in bed resting, physician underwriter utilizing deep breathing technique and distraction to ease anxiousness. Continuing to monitor patient, bed alarm in place. Pt continent of the bladder. SL. Call light in reach.
[2024-03-02] MEDS: LORazepam 0.5 MG TABLET PO (23:58)
[2024-03-03 02:46] VITALS: BP 132/79; PULSE 80; RESP 18; TEMP 36.8; O2SAT 95
--- NOTE | 2024-03-03 06:26 | PC.NURSE ---
Shift note: Pt is alert and oriented. 0.5mg of Ativan given at 0000 for anxiety and sleeplessness. Stated at 0300 that the Mediation helped him to relax but did not do much for the sleeplessness. He continue to have muscle rigidity. Tele reading has first degree HB.
[2024-03-03 06:33] LABS: White Blood Count* 7.11 K/uL (4.50-11.00)
[2024-03-03 06:34] LABS: Basophils Absolute Auto 0.01 K/uL (0.00-0.30); Basophils Percent Auto 0.1 % (0.0-3.0); Eosinophils Absolute Auto 0.04 K/uL (0.00-0.50); Eosinophils Percent Auto 0.6 % (0.0-7.0); Hematocrit 36.1 % (37.0-53.0); Hemoglobin* 12.2 gm/dL (13.5-17.5); Immature Granulocytes Abs Auto 0.01 K/uL (0.00-0.30); Immature Granulocytes Pct Auto 0.1 %; Lymphocytes Percent Auto 18.3 % (20-44); Mean Corpuscular HGB Conc 34 gm/dL (32-36); Mean Corpuscular Hemoglobin 27 pg (26-34); Mean Corpuscular Volume 80 fL (80-100); Monocytes Percent Auto 10.1 % (0.0-11.0); Neutrophils Absolute Auto 5.03 K/uL (1.7-7.0); Neutrophils Percent Auto 70.8 % (42.0-72.0); Platelet Count* 271 K/uL (140-440); RDW Coefficient of Variation % 13.4 % (11.5-15.5); Red Blood Count 4.54 m/uL (4.30-5.90)
[2024-03-03 06:38] LABS: Slide Review Reflex No
[2024-03-03 06:49] LABS: Partial Thromboplastin Time* 40 Seconds (23-33)
[2024-03-03 06:55] LABS: Chloride* 95 mmol/L (96-114); Potassium* 3.9 mmol/L (3.6-5.1); Sodium* 128 mmol/L (135-149)
[2024-03-03 06:58] LABS: Anion Gap 12 mEq/L (7-15); Blood Urea Nitrogen* 17 mg/dL (7-30); Calcium* 9.3 mg/dL (8.4-10.6); Carbon Dioxide* 21 mmol/L (20-32); Creatinine* 0.7 mg/dL (0.5-1.5); Est. Creatinine Clearance* 57.12; Estimated Glomerular Filt Rate 89 ml/min; Glucose* 135 mg/dL (60-115)
[2024-03-03 07:00] VITALS: BP 134/86; PULSE 77; PULSE 83; RESP 16; TEMP 36.8; O2SAT 94
[2024-03-03] MEDS: OMEPRAZOLE 20 MG CAPSULE DR PO (09:54)
[2024-03-03] MEDS: TORSEMIDE 5 MG TABLET PO (09:54)
[2024-03-03] MEDS: GABAPENTIN 300 MG CAPSULE 600 MG PO ×2 (09:55→14:39)
[2024-03-03] MEDS: METFORMIN ER 500 MG 1000 MG PO ×2 (09:56→21:59)
[2024-03-03] MEDS: ASPIRIN 81 MG TABLET EC PO (09:56)
[2024-03-03] MEDS: METOPROLOL SUCCINATE (XL) 25 MG TAB PO (09:56)
[2024-03-03] MEDS: SODIUM CHLORIDE 0.9 % (FLUSH) 10 ML SYRINGE 5 ML IVF ×2 (09:57→22:00)
[2024-03-03] MEDS: ROSUVASTATIN CALCIUM 10 MG TABLET 40 MG PO (09:57)
[2024-03-03 11:00] VITALS: BP 126/84; PULSE 75; RESP 16; TEMP 36.8; O2SAT 94
--- NOTE | 2024-03-03 11:23 | PC.SOCIAL ---
Addendum entered by KILO Grant 03/03/24 16:21: Discharge planning: Pre-admission screening was completed. [id number]. Social work to follow-up as needed. Addendum entered by KILO Grant 03/03/24 15:42: Discharge planning: Pt has been accepted to [facility] for short-term rehab in shared room with no roommate at present for tomorrow 03/04. Pt needs to be there by 2pm. Pt's daughter will be able to transport the pt around 12:30-1pm. Pt will need a COVID test before admission. press worker helper will let the charge nurse on duty know. Social work to follow-up as needed. Original Note: Discharge planning: press worker helper met with pt today to discuss discharge planning. Pt is being recommended for short-term rehab at discharge and has Medicare coverage. Pt would like to go to [facility] as his first choice for placement. Pt stated that he really doesn't want to go out of town because his does not drive out of town. press worker helper checked with [facility] and they are assessing referrals for short-term rehab. Pt is aware of the COVID cases at [facility]. press worker helper secure emailed the referral to [email or web address] at [facility], as Agatha with Admissions is currently out of the office. Social work to follow-up as needed.
--- NOTE | 2024-03-03 14:49 | P.IMPN_ITS ---
Progress Note: A&P Assessment and plan (1) Non-STEMI (non-ST elevated myocardial infarction): Problem details: Possibly had ischemic symptoms early on with some epigastric discomfort. That has fluctuated since then. No chest pain. No dyspnea with walking today. Treated with aspirin, heparin, statin, beta-iris. Add back in his normal lisinopril. Stop heparin. Discussed with Cardiology who offered angiogram for non-STEMI with reduced ejection fraction. He reports that this time that that is not consistent with his goals of care so continue medical management. Reconsider intervention if he is significantly symptomatic with heart disease. Status: Acute (2) Musculoskeletal immobility: Problem details: Patient has disabling immobility. This is his most important and troubling health problem. Historically this is been suspected to be related to his spinal stenosis and peripheral neuropathy. He appears to have relative weakness of his core also contributing. PT and OT to evaluate. Able to walk in the hallway today for the 1st time. Had no chest pain or dyspnea Status: Acute (3) Panic attack: Problem details: Patient describes these as panic attacks. It sounds like these are episodes where his struggling to get up and move and can not and becomes extremely anxious and otherwise symptomatic with pain and inability to function. Requests muscle relaxants/sedatives for this. Use with caution Status: Acute (4) Hyponatremia: Problem details: Acute on chronic. Check urine sodium, fluid restriction, hold hydrochlorothiazide. Improving Status: Acute (5) Neuropathy: Problem details: Moderately severe and disabling. Developed prior to the diagnosis of diabetes. Status: Acute (6) Spinal stenosis at L4-L5 level: Problem details: Moderately severe and disabling. Eighteen months ago responded well to steroid injection. Less response four months ago Status: Acute Plan Continue in hospital for ongoing management of non STEMI, medications, physical disabilities and anxiety/panic. Anticipate need for residential facility for rehab. Total time spent with the patient today is 45 minutes in evaluation and management of non STEMI, disability, anxiety and discussion with patient and other providers about ongoing plan of care Subjective Date Seen: 03/03/24 Interval history: Prince Irizarry is a 88 year old male with diabetes mellitus, hypertension, hyperlipidemia, spinal stenosis, neuropathy, prostate cancer presents the hospital with a 2 day history of stiffness/weakness causing immobility and abdominal pain and dyspnea. At baseline he reports fairly severe immobility related to polyneuropathy and spinal stenosis. His biggest challenges getting from supine in bed to sitting up to transferring to the wheelchair. He is nonambulatory. He has been managing at home until yesterday when he struggled at this to the point he was exhausted and feeling panic. Since then he reports some abdominal pain which is now better and some dyspnea. The abdominal pain was epigastric. He thought he might have had some chest tightness which was mild and felt a little indigestion which he attributed to reflux. He did not have a fever. He has not been vomiting. He does not have a history of heart disease. He does have dyslipidemia diabetes and hypertension all of which are being treated. 03/01/2024: Overnight he continued to report episodes of epigastric discomfort. Not clearly exertional related. He also continues to feel profoundly weak. He still needing assistance with transfer bed to chair. No new symptoms of illness, fever, dyspnea, chest pain, cough 03/02/2024: Patient reports some epigastric discomfort, primarily queasiness and nausea without vomiting. Poor appetite today Not really having pain. Specifically denies chest pain or dyspnea. Echocardiogram yesterday showed ejection fraction of 35-40%. I discussed his care with Cardiology and with the patient. Cardiology indicates that the standard procedure for a non STEMI with reduced ejection fraction would be coronary angiogram if consistent with goals of care. I discussed with the patient and he decided that he did not want aggressive management, intervention, since he was not really having cardiac sym ptoms. He clearly states that his neurologic problems and physical disabilities are his primary concern at this point in his life. He would revisit further evaluation treatment of his coronary disease if he were having significant symptoms related to that. 03/02/2024 crosscover: This is an 88-year-old male with diabetes mellitus, spinal stenosis, neuropathy, prostate cancer, hypertension, and hyperlipidemia who was admitted to the hospital a few days ago for stiffness, weakness, immobility, abdominal pain and dyspnea. He was found to have evidence of a non ST elevation CA. I was called to his room urgently because he was shaking uncontrollably. He appeared diaphoretic and was having generalized shaking although he was alert, oriented x3, and able to follow commands, including moving all extremities. The episode lasted for approximately 5 minutes and then started to resolve. The patient endorsed high anxiety at the time, a feeling of panic. He notes that he has had panic attacks before as well as muscle spasms in his back. He has episodes like this at home, but this was more severe than those. He says Ativan has worked for him in the past and, even though the episode had resolved, was requesting Ativan in order to prevent an episode happening again this evening. 03/03/2024. Patient reports the a episode last night was quite troubling for him. He says he has had these episodes occasionally but last night was worse than usual. Did sleep well and is feeling tired today. Reports his breathing is at baseline. He has not had any chest pain. He has some appetite this morning which is improved. Exam Narrative: Exam Narrative: He is alert and appears in no distress. Respirations are clear to auscultation. Cardiovascular: S1, S2, regular rate and rhythm. Abdomen: Bowel sounds active. Abdomen is soft without tenderness or mass. Extremities without edema. He moves fairly well walking with a walker in the hallway. But struggles to reposition himself in bed. Const: Vital Signs, click to edit/add: Vital Signs - 24 hr 03/02/24 15:00 03/02/24 15:00 03/02/24 18:38 Temperature 98.7 F 99.1 F Pulse Rate 80 Pulse Rate [Right Pulse Oximeter] 80 90 Respiratory Rate 16 18 Blood Pressure [Ri ght Arm] 119/77 131/85 Pulse Oximetry 94 95 Oxygen Delivery Me thod Room Air Room Air 03/02/24 23:00 03/02/24 23:00 03/02/24 23:00 Temperature 98.5 F Pulse Rate 75 Pulse Rate [Right Pulse Oximeter] 80 80 Respiratory Rate 18 18 Blood Pressure [Ri ght Arm] 123/81 Pulse Oximetry 95 Oxygen Delivery Sc thod Room Air 03/03/24 02:46 03/03/24 07:00 03/03/24 07:00 Temperature 98.2 F 98.2 F Pulse Rate 77 Pulse Rate [Right Pulse Oximeter] 80 83 Respiratory Rate 18 16 Blood Pressure [Ri ght Arm] 132/79 134/86 Pulse Oximetry 95 94 Oxygen Delivery Sc thod Room Air Room Air 03/03/24 11:00 Temperature 98.2 F Pulse Rate Pulse Rate [Right Pulse Oximeter] 75 Respiratory Rate 16 Blood Pressure [Ri ght Arm] 126/84 Pulse Oximetry 94 Oxygen Delivery Sc thod Room Air Documenting provider has reviewed patient's vital signs: yes Labs Labs: Laboratory Results - last 24 hr 03/02/24 03/03/24 21:01 06:22 WBC 7.11 RBC 4.54 Hgb 12.2 L Hct 36.1 L MCV 80 MCH 27 MCHC 34 RDW Coeff of Tamir 13.4 Plt Count 271 Neut % (Auto) 70.8 Lymph % (Auto) 18.3 L [place] % (Auto) 10.1 Eos % (Auto) 0.6 Baso % (Auto) 0.1 Neut # (Auto) 5.03 Lymph # (Auto) 1.30 [place] # (Auto) 0.70 Eos # (Auto) 0.04 Baso # (Auto) 0.01 Abs Immat Gran (auto) 0.01 Imm/Tot Granulo (auto) 0.1 APTT 40 H Sodium 126 L 128 L Potassium 4.0 3.9 Chloride 94 L 95 L Carbon Dioxide 19 L 21 Anion Gap 13 12 BUN 21 17 Creatinine 0.9 0.7 Estimated Creat Clear 57.12 57.12 Estimated GFR 83 89 Glucose 154 H 135 H Calcium 9.1 9.3 Total Bilirubin 0.4 AST 35 ALT 24 Alkaline Phosphatase 58 Troponin I 0.19 H* Total Protein 6.8 Albumin 4.3
[2024-03-03 15:00] VITALS: BP 121/89; PULSE 75; PULSE 80; RESP 16; O2SAT 92
--- NOTE | 2024-03-03 16:47 | PC.NURSE ---
patient pleasant and cooperative, alert and oriented, up with A1 walker and belt tolerating well, tolerating heart healthy diet. declining pain today.
[2024-03-03 19:00] VITALS: BP 124/78; PULSE 79; RESP 20; TEMP 36.7; O2SAT 95
[2024-03-03 19:10] LABS: SARS Antigen* Negative (Negative)
[2024-03-03] MEDS: GABAPENTIN 300 MG CAPSULE 1200 MG PO (21:58)
[2024-03-03] MEDS: ACETAMINOPHEN 325 MG TABLET 650 MG PO (21:59)
[2024-03-03 23:00] VITALS: BP 141/87; PULSE 68; PULSE 77; RESP 18; TEMP 36.9; O2SAT 94
[2024-03-04 02:32] VITALS: BP 112/64; PULSE 69; RESP 16; TEMP 36.6; O2SAT 95
[2024-03-04] MEDS: OMEPRAZOLE 20 MG CAPSULE DR PO (06:44)
[2024-03-04 07:01] LABS: Basophils Absolute Auto 0.02 K/uL (0.00-0.30); Basophils Percent Auto 0.3 % (0.0-3.0); Eosinophils Absolute Auto 0.12 K/uL (0.00-0.50); Eosinophils Percent Auto 1.5 % (0.0-7.0); Hematocrit 35.3 % (37.0-53.0); Hemoglobin* 11.8 gm/dL (13.5-17.5); Immature Granulocytes Abs Auto 0.01 K/uL (0.00-0.30); Immature Granulocytes Pct Auto 0.1 %; Lymphocytes Percent Auto 18.2 % (20-44); Mean Corpuscular HGB Conc 33 gm/dL (32-36); Mean Corpuscular Hemoglobin 27 pg (26-34); Mean Corpuscular Volume 80 fL (80-100); Neutrophils Absolute Auto 5.49 K/uL (1.7-7.0); Neutrophils Percent Auto 70.9 % (42.0-72.0); Platelet Count* 268 K/uL (140-440); RDW Coefficient of Variation % 13.4 % (11.5-15.5); Red Blood Count 4.42 m/uL (4.30-5.90); White Blood Count* 7.75 K/uL (4.50-11.00)
[2024-03-04 07:02] LABS: Slide Review Reflex No
[2024-03-04 07:20] LABS: Chloride* 95 mmol/L (96-114); Potassium* 3.7 mmol/L (3.6-5.1); Sodium* 127 mmol/L (135-149)
[2024-03-04 07:23] LABS: Anion Gap 8 mEq/L (7-15); Blood Urea Nitrogen* 15 mg/dL (7-30); Calcium* 8.8 mg/dL (8.4-10.6); Carbon Dioxide* 24 mmol/L (20-32); Creatinine* 0.7 mg/dL (0.5-1.5); Est. Creatinine Clearance* 57.12; Estimated Glomerular Filt Rate 89 ml/min; Glucose* 122 mg/dL (60-115)
[2024-03-04 07:30] VITALS: PULSE 71
[2024-03-04 07:40] VITALS: BP 128/79; PULSE 71; RESP 16; TEMP 36.2; O2SAT 95
[2024-03-04] MEDS: METFORMIN ER 500 MG 1000 MG PO (09:14)
[2024-03-04] MEDS: GABAPENTIN 300 MG CAPSULE 600 MG PO (09:14)
[2024-03-04] MEDS: METOPROLOL SUCCINATE (XL) 25 MG TAB PO (09:14)
[2024-03-04] MEDS: ACETAMINOPHEN 325 MG TABLET 650 MG PO (09:14)
[2024-03-04] MEDS: ASPIRIN 81 MG TABLET EC PO (09:14)
[2024-03-04] MEDS: ROSUVASTATIN CALCIUM 10 MG TABLET 40 MG PO (09:15)
[2024-03-04] MEDS: TORSEMIDE 5 MG TABLET PO (09:15)
--- NOTE | 2024-03-04 09:32 | NUTR.NU ---
RDN with diet education related to heart healthy diet order. Patient admitted for nonstemi. Plan is for him to discharge to SNF today for rehab. Current weight 196lb 14oz; height 6ft; BMI 26.7 kg/m2. Weight has been stable recently. Current diet order is Heart healthy with 1500 mL fluid restriction. Meal intakes have been adequate since admit. RDN visited with patient whom reported not enjoying the diet or food here. He declined diet education related to heart healthy. He had no other questions or concerns. RDN to monitor.
--- NOTE | 2024-03-04 10:30 | PC.SOCIAL ---
Addendum entered by KILO Grant 03/04/24 10:46: Discharge planning: Pre-admission screening, [id number], and negative COVID results were secure emailed to Agatha at [facility]. Social work to follow-up as needed. Original Note: Discharge planning: dairy cattle farm worker provided the pt with a copy of The Important Message from Medicare form and explained the hospital discharge appeal process. Pt has no plans to appeal his discharge and is pleased that he is going to [facility]. Social work to follow-up as needed.
[2024-03-04 11:19] LABS: Erythrocyte SedimentationRate* 13 mm/hr (2-15)
--- NOTE | 2024-03-04 13:40 | PC.NURSE ---
Discharge: patient pleasant and cooperative. Up with one assist, walker and gait belt. Alert and oriented, using call light appropriately. Justine returned to patient. Patients family here for discharge, informed of updated labs and new medications ordered. Patient used own wheelchair at discharge. Nurse to nurse given to Gabriela WILKERSON. IV removed with catheter intact. Patient discharged @ 1257 to [facility].
--- NOTE | 2024-03-04 16:54 | P.DS_ITS ---
DS: Providers Provider Date Seen: 03/04/24 Date of admission: 02/29/24 19:51 Primary care physician: Zachariah Elaine MD Admitting Clinician: Noel Bonilla MD Attending Physician on discharge: Noel Bonilla MD Date of Discharge: 03/04/24 DS: Diagnosis Discharge Diagnosis (1) Non-STEMI (non-ST elevated myocardial infarction): Status: Acute Problem details: Possibly had ischemic symptoms early on with some epigastric discomfort. That has fluctuated since then. No chest pain. No dyspnea with walking today. Treated with aspirin, heparin, statin, beta-iris. Add back in his normal lisinopril. Stop heparin. Discussed with Cardiology who offered angiogram for non-STEMI with reduced ejection fraction. He reports that this time that that is not consistent with his goals of care so continue medical management. Reconsider intervention if he is significantly symptomatic with heart disease. (2) Musculoskeletal immobility: Status: Acute Problem details: Patient has disabling immobility. This is his most important and troubling health problem. Historically this is been suspected to be related to his spinal stenosis and peripheral neuropathy. He appears to have relative weakness of his core also contributing. PT and OT to evaluate. Able to walk in the hallway improved during his hospital stay. Had no chest pain or dyspnea (3) Panic attack: Status: Acute Problem details: Patient describes these as panic attacks. It sounds like these are episodes where his struggling to get up and move and can not and becomes extremely anxious and otherwise symptomatic with pain and inability to function. Requests muscle relaxants/sedatives for this. (4) Hyponatremia: Status: Acute Problem details: Acute on chronic. Urine sodium is 61. hold hydrochlorothiazide. Add torsemide. At discharge sodium is 127 (5) Neuropathy: Status: Acute Problem details: Moderately severe and disabling. Developed prior to the diagnosis of diabetes. (6) Spinal stenosis at L4-L5 level: Status: Acute Problem details: Moderately severe and disabling. Eighteen months ago responded well to steroid injection. Less response four months ago (7) Insomnia: Status: Acute Problem details: Chronically on Lunesta (8) Right shoulder pain: Status: Acute Problem details: Patient reports onset of new right shoulder pain and inability to lift his right arm that developed during this hospital stay. He thinks is developed around the time he was having a panic attack and staff were there to assist him. Clinical evaluation suggests rotator cuff tear. Include in PT and OT evaluation and treatment. Consider outpatient orthopedic evaluation. DS: Summary Hospital Course Hospital Course: Prince Irizarry is a 88 year old male with diabetes mellitus, hypertension, hyperlipidemia, spinal stenosis, neuropathy, prostate cancer presents the hospital with a 2 day history of stiffness/weakness causing immobility and abdominal pain and dyspnea. At baseline he reports fairly severe immobility related to polyneuropathy and spinal stenosis. His biggest challenges getting from supine in bed to sitting up to transferring to the wheelchair. He is nonambulatory. He has been managing at home until yesterday when he struggled at this to the point he was exhausted and feeling panic. Since then he reports some abdominal pain which is now better and some dyspnea. The abdominal pain was epigastric. He thought he might have had some chest tightness which was mild and felt a little indigestion which he attributed to reflux. He did not have a fever. He has not been vomiting. He does not have a history of heart disease. He does have dyslipidemia diabetes and hypertension all of which are being treated. 03/01/2024: Overnight he continued to report episodes of epigastric discomfort. Not clearly exertional related. He also continues to feel profoundly weak. He still needing assistance with transfer bed to chair. No new symptoms of illness, fever, dyspnea, chest pain, cough 03/02/2024: Patient reports some epigastric discomfort, primarily queasiness and nausea without vomiting. Poor appetite today Not really having pain. Specifically denies chest pain or dyspnea. Echocardiogram yesterday showed ejection fraction of 35-40%. I discussed his care with Cardiology and with the patient. Cardiology indicates that the standard procedure for a non STEMI with reduced ejection fraction would be coronary angiogram if consistent with goals of care. I discussed with the patient and he decided that he did not want aggressive management, intervention, since he was not really having cardiac symptoms. He clearly states that his neurologic problems and physical disabilities are his primary concern at this point in his life. He would revisit further evaluation treatment of his coronary disease if he were having significant symptoms related to that. 03/02/2024 crosscover: This is an 88-year-old male with diabetes mellitus, spinal stenosis, neuropathy, prostate cancer, hypertension, and hyperlipidemia who was admitted to the hospital a few days ago for stiffness, weakness, immobility, abdominal pain and dyspnea. He was found to have evidence of a non ST elevation ID. I was called to his room urgently because he was shaking uncontrollably. He appeared diaphoretic and was having generalized shaking although he was alert, oriented x3, and able to follow commands, including moving all extremities. The episode lasted for approximately 5 minutes and then started to resolve. The patient endorsed high anxiety at the time, a feeling of panic. He notes that he has had panic attacks before as well as muscle spasms in his back. He has episodes like this at home, but this was more severe than those. He says Ativan has worked for him in the past and, even though the episode had resolved, was requesting Ativan in order to prevent an episode happening again this evening. 03/03/2024. Patient reports the a episode last night was quite troubling for him. He says he has had these episodes occasionally but last night was worse than usual. Did sleep well and is feeling tired today. Reports his breathing is at baseline. He has not had any chest pain. He has some appetite this morning which is improved. 03/04/2024: Patient reports primary issues are around his disability. Still having trouble getting to sitting position and out of bed. Much better today with ambulation. Right shoulder is quite disabled. He is unable to forward flex or abduct very well. Has similar problems but not as bad in left shoulder. He believes this is new during his hospital stay. He is having no chest pain or dyspnea even with walking in the hallway. Status at Discharge Functional status at discharge: uses cane/walker Overall status at discharge: patient is progressing back to baseline Time Spent with Patient Time attestation: Total time spent providing and/or coordinating discharge services: 45 minutes Time spent: Greater than 30 minutes Exam Narrative: Exam Narrative: He is alert and appears in no distress. Respirations are unlabored. He is walking in the hallway. No significant edema. Right shoulder is examined. He has some tenderness. Minimal forward flexion and abduction in that right shoulder limited by pain and weakness. Poorly tolerates passive range of motion testing as well. Const: Vital Signs, click to edit/add: Vital Signs - 24 hr 03/03/24 19:00 03/03/24 23:00 03/03/24 23:00 Temperature 98.1 F 98.4 F Pulse Rate 68 Pulse Rate [Right Pulse Oximeter] 79 77 Respiratory Rate 20 18 Blood Pressure [Ri ght Arm] 124/78 141/87 H Pulse Oximetry 95 94 Oxygen Delivery Me thod Room Air Room Air 03/04/24 02:32 03/04/24 07:30 03/04/24 07:40 Temperature 97.8 F Pulse Rate 71 Pulse Rate [Right Pulse Oximeter] 69 71 Respiratory Rate 16 Blood Pressure [Ri ght Arm] 112/64 Pulse Oximetry 95 Oxygen Delivery Me thod Room Air 03/04/24 07:40 Temperature 97.1 F L Pulse Rate Pulse Rate [Right Pulse Oximeter] 71 Respiratory Rate 16 Blood Pressure [Ri ght Arm] 128/79 Pulse Oximetry 95 Oxygen Delivery Me thod Room Air Documenting provider has reviewed patient's vital signs: yes DS: Data Data Completed and Pending Labs on day of discharge: Labs from last 24 hours 03/04/24 03/03/24 06:07 17:46 WBC 7.75 RBC 4.42 Hgb 11.8 L Hct 35.3 L MCV 80 MCH 27 MCHC 33 RDW Coeff of Tamir 13.4 Plt Count 268 Neut % (Auto) 70.9 Lymph % (Auto) 18.2 L [place] % (Auto) 9.0 Eos % (Auto) 1.5 Baso % (Auto) 0.3 Neut # (Auto) 5.49 Lymph # (Auto) 1.40 [place] # (Auto) 0.70 Eos # (Auto) 0.12 Baso # (Auto) 0.02 Abs Immat Gran (auto) 0.01 Imm/Tot Granulo (auto) 0.1 ESR 13 Sodium 127 L Potassium 3.7 Chloride 95 L Carbon Dioxide 24 Anion Gap 8 BUN 15 Creatinine 0.7 Estimated Creat Clear 57.12 Estimated GFR 89 Glucose 122 H Calcium 8.8 SARS-CoV-2 Ag (Rapid) Negative Discharge Plan Discharge Disposition: [facility] Date of Admission: 02/29/24 19:51 Attending Provider on Discharge: Noel Bonilla Primary Care Provider: Zachariah Elaine Anticipated Discharge Date/Time: 03/04/24 12:00 Discharge Medications: New acetaminophen 325 mg Tablet 650 mg PO Q6H PRN (Reason: As needed for fever, headache, or minor pain) Qty: 100 0RF aspirin 81 mg Tablet,Delayed Release (Dr/Ec) 81 mg PO DAILY Qty: 100 0RF metoprolol succinate 25 mg Tablet Extended Release 24 Hr 25 mg PO DAILY Qty: 30 0RF rosuvastatin 40 mg tablet 40 mg PO DAILY Qty: 30 2RF torsemide 5 mg Tablet 5 mg PO DAILY@0800 Qty: 30 0RF lisinopril 10 mg tablet 10 mg PO DAILY Qty: 30 2RF eszopiclone [Lunesta] 3 mg tablet 3 mg PO QHS Qty: 30 0RF Continued gabapentin [Neurontin] 300 mg capsule 600 mg PO BID@,14 Patient Comments: PLUS 1200 MG AT HS multivitamin Tablet 1 tab PO DAILY omeprazole 20 mg capsule,delayed release(DR/EC) 20 mg PO DAILY metformin 500 mg tablet extended release 24 hr 1,000 mg PO BID gabapentin 300 mg capsule 1,200 mg PO HS Patient Comments: PLUS 600 MG BID methocarbamol 750 mg tablet 750 mg PO TID PRN (Reason: muscle spasm) cholecalciferol (vitamin D3) 25 mcg (1,000 unit) tablet 25 mcg PO DAILY Discontinued eszopiclone [Lunesta] 3 mg tablet 3 - 6 mg PO HS PRN Rx Instructions: TAKE ONE AT BEDTIME, FELECIA REPEAT THREE HOURS LATER NEEDED simvastatin [Zocor] 40 mg tablet 40 mg PO HS lisinopril-hydrochlorothiazide 10-12.5 mg tablet 1 tab PO DAILY Patient Comments: TAKE ONE TABLET BY MOUTH DAILY Discharge Orders: Discharge Order (Routine); Ordered 03/04/24 Ordered By: Noel Bonilla Activity Level: Activity as Tolerated, Up with assist and Use Walker Discharge Diet: Heart Healthy (2 gm sodium, low fat) Follow Up Appointments: Zachariah Elaine MD [Primary Care Provider] - Forms: [facility] Info Instructions Admit to: SNF Discharge Potential: Fair Length of Stay: <30 days Can use facility standing orders?: Yes Code Status: DNR Rehab Potential: Fair Therapy: Physical Therapy and Occupational Therapy Therapy Orders: Evaluate and Treat Oxygen: No Lab Orders: Basic metabolic panel in 1 week
== END 2024-03-04 12:57 | DRG 281 ==
LOC: ED 17:47 → MEDSURG 18:24
PROVIDERS: Family Medicine; Admitting Provider Family Medicine; Emergency Provider Family Medicine; PCP Family Medicine; Visit Provider Family Medicine
DX: I21.4 Non-ST elevation (NSTEMI) myocardial infarction (principal); E87.1 Hypo-osmolality and hyponatremia; I50.20 Unspecified systolic (congestive) heart failure; I11.0 Hypertensive heart disease with heart failure; E11.42 Type 2 diabetes mellitus with diabetic polyneuropathy; F41.0 Panic disorder [episodic paroxysmal anxiety]; M48.061 Spinal stenosis, lumbar region without neurogenic claudication; M25.511 Pain in right shoulder; Z79.84 Long term (current) use of oral hypoglycemic drugs; Z99.3 Dependence on wheelchair; M62.50 Muscle wasting and atrophy, not elsewhere classified, unspecified site; M21.372 Foot drop, left foot; R33.9 Retention of urine, unspecified; I44.0 Atrioventricular block, first degree; K21.9 Gastro-esophageal reflux disease without esophagitis; Z87.891 Personal history of nicotine dependence; G47.00 Insomnia, unspecified; F32.9 Major depressive disorder, single episode, unspecified; C61 Malignant neoplasm of prostate; E78.5 Hyperlipidemia, unspecified
CPT/HCPCS: 36415; 51798; 71045; 80048; 80053; 81001; 82803; 83605; 83690; 83735; 83880; 84300; 84484; 85025; 85027; 85379; 85610; 85651; 85730; 86140; 87426; 87631; 93005; 93306; 94761; 97110; 97116; 97162; 97166; 97530; 97535; 99285; A9270; J1644

== ENCOUNTER 2024-03-18 13:14 | Outpatient (CLI) | payer MEDICARE, BC, SELFPAY ==
--- NOTE | 2024-03-18 13:45 | CRLHL7_ITS ---
For Patients: As a result of the 21st Century Cures Act, medical imaging exams and procedure reports are released immediately into your electronic medical record. You may view this report before your referring provider. If you have questions, please contact your health care provider. CLINICAL INDICATION: Shoulder pain. COMPARISON IMAGING STUDIES: None available at time of interpretation. TECHNICAL: Non-contrast MRI of the right shoulder. Axial, sagittal oblique and coronal oblique T1, PD, PD FS, T2 and T2 FS images. 1.5 Kat MR scanner. FINDINGS: GLENOHUMERAL JOINT: Effusion: No effusion. Humeral Head Articular Cartilage: Minor osteophyte formation. [id number] thinning of the articular cartilage (grade 2). There is a area of subchondral bone marrow edema involving the posterior humeral head which could relate to a limited area of grade 4 chondromalacia, reactive bone marrow edema or a tiny subchondral fracture. Glenoid Articular Cartilage: Mild to moderate articular cartilage wear (grade 2). Alignment: Mild superior subluxation of the humeral head. Capsule: No generalized capsular edema or capsular thickening. OSSEOUS STRUCTURES: As above there is a small area of subchondral bone marrow edema involving the posterior humeral head which could be degenerative, reactive or relate to a tiny subchondral fracture. Subcortical reactive cystic-like change involves the posterior greater tuberosity-humeral head junction. CORACOACROMIAL ARCH: Acromial Morphology: Type 2 acromial morphology. No excessive downward sloping of the acromion. No os acromiale. Mild spurring of the anterolateral acromion. Lateral acromial thickness is 7 mm. Acromiohumeral Interval: At its narrowest, the interval measures 7 mm. There is thickening of the coracoacromial ligament. Coracohumeral Interval: At its narrowest, the coracohumeral interval measures 12 mm. Coracoid index is 14 mm. ACROMIOCLAVICULAR JOINT REGION: Advanced AC joint degenerative arthrosis. Coracoclavicular ligament intact. BURSAE: Mild subacromial-subdeltoid bursitis. ROTATOR CUFF TENDONS AND MUSCLES AND DELTOID: Supraspinatus and Infraspinatus: Severe supraspinatus tendinosis with partial-thickness distal tendon tearing and fraying with those changes appearing moderate in severity. There is no full-thickness supraspinatus tendon tear. Mild distal infraspinatus tendinosis. Note is made of subtle interstitial muscle edema involving the supraspinatus and infraspinatus muscles. This is noted on coronal oblique PD fat-sat images number 14 and 22 of series 7. No significant muscle atrophy. Teres Minor: Distal tendon intact. No muscle atrophy. Subscapularis: Distal subscapularis tendinosis with fraying superiorly. No muscle atrophy. Deltoid: No muscle atrophy. BICEPS TENDON, LONG HEAD: Tendinosis of the proximal long head of the biceps tendon. No dislocation of tendon from bicipital groove. GLENOID LABRUM: Multifocal degenerative labral fraying. OTHER FINDINGS: There is no abnormality within the suprascapular or spinoglenoid notches nor within the quadrilateral space. No axillary adenopathy or mass. IMPRESSION: 1. Subtle interstitial muscle edema involving the supraspinatus and infraspinatus muscles which may relate to brachial neuritis, suprascapular nerve pathology, delayed onset muscle soreness or low-grade strain changes. Severe supraspinatus tendinosis with partial-thickness tendon tearing and fraying. Mild infraspinatus tendinosis. 2. Mild distal subscapularis tendinosis with fraying. 3. Glenohumeral joint degenerative changes with articular cartilage wear and labral fraying. 4. AC joint degenerative changes. 5. Mild subacromial subdeltoid bursitis. 6. Tendinosis of the proximal long head of the biceps tendon. Dictated by Andrea Kan MD @ 03/19/2024 8:31:15 AM (Electronically Signed)
== END 2024-03-18 13:15 | disposition home or self-care (01) ==
LOC: MRI 13:15
PROVIDERS: PCP Family Medicine; Visit Provider Family Medicine
DX: M25.511 Pain in right shoulder (principal); M75.101 Unspecified rotator cuff tear or rupture of right shoulder, not specified as traumatic; M19.011 Primary osteoarthritis, right shoulder; M75.51 Bursitis of right shoulder; M75.21 Bicipital tendinitis, right shoulder
CPT/HCPCS: 73221

== ENCOUNTER 2024-04-12 15:44 | Outpatient (CLI) | payer MEDICARE, BC, SELFPAY | END 2024-04-12 15:45 | disposition home or self-care (01) | LOC: AMB 04-13 02:07 | PROVIDERS: PCP Family Medicine; Visit Provider Family Medicine | DX: R53.1 Weakness (principal); R43.8 Other disturbances of smell and taste | CPT/HCPCS: A0425; A0429 ==

== ENCOUNTER 2024-04-12 16:22 | Inpatient (IN) | payer MEDICARE, BC, SELFPAY ==
[2024-04-12] VITALS (17 sets, daily range): BP systolic 136–216; BP diastolic 74–108; PULSE 61–84; RESP 4–24; TEMP 36.3–36.6; O2SAT 93–96; BMI 25.8
--- OUTSIDE RECORDS SUMMARY | 2024-04-12 16:24 | XMS_ITS ---
Author Organization [facility] Address Unknown Allergies, Adverse Reactions, Alerts Substance Reaction Status Noted Date Resolved Date traZODone active 03/04/2024 metroNIDAZOLE active 03/04/2024 DULoxetine active 03/04/2024 Medications Medication Dose Frequency Directions Start Date End Jovani e Aspirin Oral Tablet Delayed Release 81 mg 24 h Give 81 mg by mouth one time a day for heart health 03/05/2024 04/01/2024 Eszopiclone Oral Tablet 3 MG 3 mg Give 3 mg by mouth a s needed for Insomnia take one at bedtime-may repeat 3 hours later as needed 03/04/2024 04/01/2024 Gabapentin Oral Capsule 600 mg 12 h Give 600 mg by mouth two times a day for Neuropathy 03/04/2024 04/01/2024 Gabapentin Oral Capsule 1200 mg Give 1200 mg by mouth at bedtime for Neuropathy 03/05/2024 04/01/2024 metFORMIN HCl ER Oral Tablet Extended Release 24 Hour 1000 mg 12 h Give 1000 mg by mout h two times a day for DM2 03/04/2024 04/01/2024 Lisinopril Oral Tablet 10 mg 24 h Give 10 mg by mouth one time a day for CHF 03/05/2024 04/01/2024 Cholecalciferol Oral Tablet 25 ug 24 h Give 25 mcg by mouth one time a day for Supplement (1000 unit) 03/05/2024 04/01/2024 Omeprazole Oral Capsule Delayed Release 20 mg 24 h Give 20 mg by mouth one time a day for GERD 03/05/2024 04/01/2024 Multivitamin Oral Tablet 1 {tbl} 24 h Give 1 tablet by deedee th one time a day for Supplement 03/05/2024 04/01/2024 Tuberculin PPD Solution 5 UNIT/0.1ML 5 Inject 5 unit intradermally every evening shift for Tuberculin Skin Test (Step 2 of 2) 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 Mantoux to be given on the evening shift. 03/18/2024 03/19/2024 Methocarbamol Oral Tablet 750 mg Give 750 mg by mouth as needed for muscular atrophy PRN TID 03/04/2024 04/01/2024 Rosuvastatin Calcium Oral Tablet 40 mg 24 h Give 40 mg by mouth one time a day for Hyperlipidemia 03/05/2024 04/01/2024 Torsemide Oral Tablet 5 mg 24 h Give 5 mg by mouth one time a day for CHF 03/05/2024 04/01/2024 Metoprolol Succinate ER Oral Tablet Extended Release 24 Hour 25 mg 24 h Give 25 mg by mouth one time a day for hypertension 03/05/2024 04/01/2024 Acetaminophen Oral Tablet 650 mg 12 h Give 650 mg by mouth two times a day for pain 03/08/2024 03/24/2024 Acetaminophen Oral Tablet 650 mg Give 650 mg by mouth as needed for pain BID Prn 03/07/2024 03/24/2024 MiraLax Oral Packet 17 GM 17 Give 17 gram by mout h as needed for constipation mix w/ 6-8 ounces of fluid 03/13/2024 04/01/2024 Lidocaine External Cream 4 % 8 h Apply to affected ar ea topically three times a day for pain apply small amount to right wrist/forearm 03/20/2024 03/24/2024 Oseltamivir Phosphate Oral Capsule 75 mg Give 75 mg by mouth at bedtime for Influenza for 2 Weeks 03/20/2024 04/01/2024 Triamcinolone Acetonide External Cream 0.1 % 12 h Apply to rash right arm topically two times a day for rash for 2 Weeks 03/20/2024 04/01/2024 Acetaminophen Oral Tablet 500 MG 1000 mg 8 h Give 1000 mg by mout h three times a day for Pain 03/25/2024 04/01/2024 oxyCODONE HCl Oral Tablet 5 MG 5 mg Give 5 mg by mouth every 4 hours as needed for Pain 03/24/2024 04/01/2024 Lidocaine External Cream 4 % 6 h Apply to affected ar ea topically four times a day for pain apply small amount to right wrist/forearm 03/25/2024 04/01/2024 Medications Administered Medication Dose Frequency Status Start Date End Date Aspirin Oral Tablet Delayed Release 81 mg 24 h 04/01/2024 Eszopiclone Oral Tablet 3 MG 3 mg 0 04/01/2024 Gabapentin Oral Capsule 600 mg 12 h 2024 Gabapentin Oral Capsule 1200 mg 2024 metFORMIN HCl ER Oral Tablet Extended Release 24 Hour 1000 mg 12 h 04/01/2024 Lisinopril Oral Tablet 10 mg 24 h 025 Cholecalciferol Oral Tablet 25 ug 24 h Omeprazole Oral Capsule Orquidea yed Release 20 mg 24 h 04/01/2024 Multivitamin Oral Tablet 1 {tbl} 24 h 04/01 Tuberculin PPD Solution 5 UNIT/0.1ML 5 03/19/2024 Methocarbamol Oral Tablet 750 mg 02/27 Rosuvastatin Calcium Oral Tablet 40 mg 24 h 04/01/2024 Torsemide Oral Tablet 5 mg 24 h 04/01/19 Metoprolol Succinate ER Oral Tablet Extended Release 24 Hour 25 mg 24 h Acetaminophen Oral Tablet 650 mg 12 h 02/27 Acetaminophen Oral Tablet 650 mg 02/27 MiraLax Oral Packet 17 GM 17 02/28 Lidocaine External Cream 4 % 8 h 0 03/24/2024 Oseltamivir Phosphate Oral Capsule 75 mg 04/01/2024 Triamcinolone Acetonide Exte rnal Cream 0.1 % 12 h Drug Refused 04/01/2024 Acetaminophen Oral Tablet 500 MG 1000 mg 8 h 04/01/2024 oxyCODONE HCl Oral Tablet 5 MG 5 mg 03/26/2024 Lidocaine External Cream 4 % 6 h 0 04/01/2024 Problems Problem Status Start Date End Date NON-ST ELEVATION (NSTEMI) MY OCARDIAL INFARCTION (Primary) (I21.4 - ICD-10-CM) ACTIVE 03/04/2024 SPINAL STENOSIS, LUMBAR BRAD ON WITHOUT NEUROGENIC CLAUDICATION (M48.061 - ICD-10-CM) ACTIVE 03/04/2024 HYPERLIPIDEMIA, UNSPECIFIED (E78.5 - ICD-10-CM) ACTIVE 03/04/2024 TYPE 2 DIABETES MELLITUS WIT HOUT COMPLICATIONS (E11.9 - ICD-10-CM) ACTIVE 03/04/2024 ESSENTIAL (PRIMARY) HYPERTENSION (I10 - ICD-10-CM) ACT WALDEMAR 03/04/2024 POLYNEUROPATHY, UNSPECIFIED (G62.9 - ICD-10-CM) ACTIVE 03/04/2024 OTHER REDUCED MOBILITY (Z74.09 - ICD-10-CM) ACTIVE 03/04/2024 GASTRO-ESOPHAGEAL REFLUX DIS EASE WITHOUT ESOPHAGITIS (K21.9 - ICD-10-CM) ACTIVE 03/04/2024 MUSCLE WASTING AND ATROPHY, NOT ELSEWHERE CLASSIFIED, UNSPECIFIED SITE (M62.50 - ICD-10-CM) ACTIVE 03/04/2024 FOOT DROP, LEFT FOOT (M21.372 - ICD-10-CM) ACTIVE 03/04/2024 INSOMNIA, UNSPECIFIED (G47.00 - ICD-10-CM) ACTIVE 03/04/2024 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 with home health services [facility] 03/04/2024 02:25 pm EST - 04/01/2024 04:07 pm EST Immunizations Vaccine Date TB 2 Step Mantoux Skin Test 03/18/2024 0 9:15 pm EST TB 2 Step Mantoux Skin Test 03/04/2024 0 4:30 pm EST PPSV23, Pneumovax 23 11/23/2004 01:00 am EDT PCV13, [id number] 04/10/2014 01:00 am EST Influenza-High Dose 01/14/2024 01:00 am EST Td 10/29/2021 01:00 am EDT Zostavax (Live Shingles) 08/01/2022 01:0 0 am EDT Zostavax (Live Shingles) 05/22/2007 01:0 0 am EDT COVID-19 SARS 01/14/2024 01:00 am EST Social History Vital Signs Vital Sign Reading Time Taken oxygenSaturation 95 % 04/01/2024 10:1 2 am EST oxygenSaturation 95 % 04/01/2024 10:1 0 am EST painLevel 4 {score} 04/01/2024 09:15 am EST painLevel 3 {score} 04/01/2024 05:06 am EST painLevel 3 {score} 03/31/2024 10:31 am EST painLevel 5 {score} 03/30/2024 08:58 am EST painLevel 4 {score} 03/29/2024 08:06 pm EST painLevel 4 {score} 03/29/2024 08:20 am EST heartrate 68 /min 04/01/2024 09:03 am EST temperature 96.7 [degF] 04/01/2024 09:03 am EST systolicValue 138 mm[Hg] 04/01/2024 09:03 am EST diastolicValue 62 mm[Hg] 04/01/2024 09:03 am EST respirations 17 /min 04/01/2024 09:03 am EST bloodSugar 111 mg/dL 04/01/2024 08:16 am EST bloodSugar 113 mg/dL 03/31/2024 08:50 am EST bloodSugar 108 mg/dL 03/30/2024 08:06 am EST bloodSugar 115 mg/dL 03/29/2024 08:21 am EST weight 187 [lb_av] 03/29/2024 05:26 pm EST
--- OUTSIDE RECORDS SUMMARY | 2024-04-12 16:24 | XMS_ITS | Clinical Summary ---
Author Organization [facility] Address [place], [place] [address] Care Team Providers Care Roofer Assistant Name Role Phone Mis Yañez DO Unavailable Zachariah Elaine MD Primary Care Provider [phone] Allergies Active Allergy Reactions Criticality Noted Date Comments Duloxetine Other - Describe In Comment Field 06/08/2003 Emotional Irriability Metronidazole Other - Describe In Comment Field 03/13/2012 severe gi irrability Trazodone Anxiety 09/24/2015 Medications MULTIVITAMIN TAB one tab daily 0 01/16/20 08 Active eszopiclone (LUNESTA) 3 mg tablet TAKE 1 TABLET (3 MG) BY MOUTH AT BEDTIME NEEDED FOR SLEEP. TAKE 30 MINUTES BEFORE INTENDED TIME OF SLEEP ONSET. 04/19/19 21 Active durable medical equipment (DME)Indications: Functional gait abnormality Four pronged cane. 1 Each 01/22/20 21 Active acetaminophen (TYLENOL EXTRA STRGTH) 500 mg tablet Take 1,000 mg by mouth every 6 hours if needed for Pain. Pain/Headach e/Fever Active wheelchairIndicat ions:Weakness of lower extremity, unspecified laterality TRANSFER Wheelchair: Standard with leg rests: (Swing away Length of need: 99 months 1 Each 10/18/19 23 Active commodeIndication s:Weakness of lower extremity, unspecified laterality As directed. Commode. For home use. 1 Each 10/18/19 23 Active hospital bedIndications:We akness of lower extremity, unspecified laterality Hospital bed with mattress and full rails. Semi-electri c bed. Length of need 99 months. 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 2 Each 12/12/19 23 Active lisinopril-hydroc hlorothiazide 20-12.5 mg tablet (PRINZIDE)Indicat ions:Primary hypertension Take 1 Tablet by mouth once daily. 90 Tablet 3 05/25/19 24 Active metFORMIN (GLUCOPHAGE XR) 500 mg Extended-Release tabletIndications :Controlled type 2 diabetes mellitus with diabetic neuropathy, without long-term current use of insulin (HC) Take 2 Tablets (1,000 mg) by mouth two times daily. 360 Tablet 3 05/25/19 24 Active cholecalciferol (VITAMIN D3) 1,000 unit tabletIndications :Vitamin D insufficiency Take 1 Tablet (1,000 units) by mouth once daily. 90 Tablet 3 05/25/19 24 Active omeprazole (PRILOSEC) 20 mg Delayed-Release capsuleIndication s:Gastroesophagea l reflux disease, unspecified whether esophagitis present Take 1 Capsule (20 mg) by mouth once daily before a meal. 90 Capsule 3 05/25/19 24 Active methocarbamoL (ROBAXIN) 750 mg tabletIndications :Muscle spasms of both lower extremities Take 1 Tablet (750 mg) by mouth 3 times daily if needed for Muscle Spasm. 90 Tablet 3 10/16/19 24 Active simvastatin (ZOCOR) 40 mg tabletIndications :Other hyperlipidemia TAKE 1 TABLET (40 MG) BY MOUTH ONCE DAILY. 90 Tablet 1 03/30/19 25 Active torsemide (DEMADEX) 5 mg tabletIndications :Bilateral lower extremity edema Take 1 Tablet (5 mg) by mouth once daily in the morning. 90 Tablet 04/02/19 25 Active rosuvastatin (CRESTOR) 40 mg tablet Take 40 mg by mouth at bedtime. 04/01/19 25 Active metoprolol succinate (TOPROL XL) 25 mg Sustained-Release tablet Take 25 mg by mouth once daily. 04/01/19 25 Active lisinopriL (PRINIVIL; ZESTRIL) 10 mg tablet Take 10 mg by mouth once daily. 04/01/19 25 Active sertraline (ZOLOFT) 50 mg tabletIndications :Anxiety,Panic attacks Take 1 tablet daily for 1 week then increase to 2 tablets daily. 60 Tablet 3 04/08/19 25 Active gabapentin (NEURONTIN) 300 mg capsuleIndication s:Spinal stenosis of lumbar region with neurogenic claudication,Diab etic polyneuropathy associated with diabetes mellitus due to underlying condition (HC) TAKE 2 CAPSULES BY MOUTH IN THE MORNING AND AFTERNOON 3 CAPSULES AT BEDTIME 630 Capsule 3 04/08/19 25 Active simvastatin (ZOCOR) 40 mg tabletIndications :Other hyperlipidemia TAKE 1 TABLET (40 MG) BY MOUTH ONCE DAILY. 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 Has been told that he has a benign Cardiac Arrhythmia - no abnormality heard today. 06/12/2012 Erectile dysfunction 11/23/2004 Encounters Date Type Department Care Team Description 04/08/2024 1:55 PM BIG MACHINE CONSULTANT Office Visit [facility] [address] [place] [address] Zachariah Elaine MD Hospital F/U (Heart attack); Referral (Would like a back injection again with Dr. Brown) 04/08/2024 11:40 AM BIG MACHINE CONSULTANT Office Visit [facility] [place] [facility] [address] [place] [address] Lenny Cortez MD Follow Up (Follow up neuropathy ) 04/08/2024 Telephone [facility] [address] [place] [address] Zachariah Elaine MD Follow Up 04/07/2024 Travel 04/02/[address] [address] Zachariah Elaine MD Medication Management 03/28/2024 Refill [facility] [address] [place] [address] Zachariah Elaine MD Refill Request (Simvastatin) 03/28/2024 Transcribe Orders [facility] [address] [place] [address] Anila Hendricks PA 03/27/2024 Telephone [facility] [address] [place] [address] Zachariah Elaine MD Questions 03/26/2024 Nurse Triage [facility] [address] [place] [address] Zachariah Elaine MD Concerns 03/24/2024 Lab Requisition [facility] [phone] Lei Allan MD 03/18/2024 Orders Only [facility] Scanner 1 scan: (1-Ord) [facility], SHOULDER RT, 03/18/2024 03/18/2024 Orders Only [facility] Scanner 1 scan: (1-Ord) [facility], SHOULDER PAIN, 03/18/2024 03/10/2024 Telephone [facility] [address] [phone] Lenny Cortez MD Questions 03/06/2024 Lab Requisition [facility] [phone] Lei Allan MD 03/02/2024 Telephone [facility] [address] [place] [address] Sixto Law MD NSTEMI 03/01/2024 1:15 PM BIG MACHINE CONSULTANT Ancillary Procedure [facility] [address] [place] [address] 02/29/2024 Orders Only [facility] Scanner 1 scan: (1-Ord) [facility], XR CHEST 1V PORTABLE, 02/29/2024 02/29/2024 Telephone [facility] [address] [place] [address] Vladimir Blanco MD 02/28/2024 Telephone [facility] [address] [phone] Lenny Cortez MD Appointment Request 02/28/2024 Nurse Triage [facility] [address] [place] [address] Zachariah Elaine MD Musculoskeletal Problem 02/26/2024 Nurse Triage [facility] [address] [place] [address] Zachariah Elaine MD from Last 3 Months Immunizations Name Administration Dates Next Due AMB Influenza, IIV3 (Age >=3 years)(Flu Clinic Only) 02/02/2011 COVID-19 VACCINE SPIKEVAX (M ODERNA 50MCG/0.5ML) 12YO+ PFS 12/15/2022 Hepatitis A (Adult) 04/28/2021 Hepatitis B (Adult) 04/28/2021 Influenza RIV4 (Age 18+ Year s) PRESERV FREE 11/28/2019 Influenza Virus, Unspecified 01/26/2011,11/27/19 09 Influenza, High-dose Inactivated 024,02/12/2019,02/04/2018,2016,12/28/2015,01/08/2015,12/09/2013,1 03/03/2012,01/24/2012,12/23/2009 Influenza, High-dose Quadriv alent Inactivated 12/08/2021 Influenza, IIV3 (Age 6-35 mos) 1,02/01/2009,12/31/2007,2006 Influenza, IIV3 (Age >=3 years) 01/02/20 13,01/24/2012,02/01/2009,2005,12/23/2004,12/26/2003 Influenza, Inactivated AIIV4 (Age 65+ Years) Preserv Free 12/15/2022,11/26/2020 Pneumococcal Poly,23-Valent (Pneumovax) 11/23/2004,12/25/2002 Pneumococcal conj 13-Valent (Prevnar 13) 04/10/2014 Td (Age >=7 Years) 10/29/2021,11/23/2004 Td, Preservative Free (age > = 7 Years) 11/23/2004 Tdap 03/13/2012 Zoster (Shingrix-RZV, recombinant) 08/01/2022, Zoster (Zostavax-ZVL, live) 08/22/2007, 8 Family History Medical History Relation Name Comments Heart Disease Brother 1 Ania Stent Heart failure Brother 1 Ania of this a t 82 Multiple sclerosis Brother 1 Ania Other Brother 1 Ania MS Diabetes Brother 2 Shyam improved with D iet and Weight loss Kidney cancer Sister 2 [place] Relation Name Status Comments Brother 1 Ania Brother 2 Shyam Alive Brother 3 De Alive Father Shyam Irizarry Mother MaryBrenile Sister 1 Bobbi Alive Sister 2 [place] Alive Social History Tobacco Use Types Packs/Day Years Used Date Smoking Tobacco: Former Cigarettes Q uit: 02/27/1968 Smokeless Tobacco: Never Tobacco Cessation:Counseling Given: Yes Alcohol Use Standard Drinks/Week Comments Not Currently 0 (1 standard drink = 0.6 oz pur e alcohol) 2 times per month - 1 beer PHQ-2 Answer Date Recorded PHQ-2 TOTAL SCORE 0 05/25/2023 Social Connections Answer Date Recorded Do you often feel lonely or isolated from those around you? 0 04/07/2024 Alcohol Use Answer Date Recorded How often do you have a drink containing alcohol ? 2 10/16/2023 How many drinks containing a lcohol do you have on a typical day when you are drinking? 0 10/16/2023 How often do you have five or more drinks on one occasion? 0 10/16/2023 Financial Resource Strain Answer Date R ecorded Difficulty of Paying Living Expenses 3 04/07/2024 Difficulty of Paying Living Expenses Not on file 04/07/2024 Food Insecurity Answer Date Recorded Do you worry your food will run out before you are able to buy more? 1 04/07/2024 Transportation Needs Answer Date Record ed Does lack of transportation keep you from medica l appointments? 1 04/07/2024 Does lack of transportation keep you from work, meetings or getting things that you need? 1 04/07/2024 Housing Stability Answer Date Recorded What is your housing situation today? 1 04/07/2024 Utilities Answer Date Recorded Do you have trouble paying f or utilities (for example, heat, electricity, water, phone)? 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 [employer] Not on file Not o n file Not on file Obstetrics History Last Filed Vital Signs Vital Sign Reading Time Taken Comments Blood Pressure 115/67 04/08/2024 12:40 PM BIG MACHINE CONSULTANT Pulse 67 04/08/2024 12:40 PM BIG MACHINE CONSULTANT Temperature 36.4 C (97.6 F) 04/08/2024 12:40 PM BIG MACHINE CONSULTANT Respiratory Rate 16 07/05/2022 4:36 PM CDT Oxygen Saturation 95% 04/08/2024 12:40 PM BIG MACHINE CONSULTANT Inhaled Oxygen Concentration - - Weight 92 kg (202 lb 12.8 oz) 10/16/2023 2:54 PM CDT Height 184.2 cm (6' 0.5) 05/25/2023 2:37 PM CDT Body Mass Index 27.13 05/25/2023 2:37 PM CDT Plan of Treatment Upcoming Encounters Date Type Department Care Team (Late st Contact Info) Description 04/15/2024 2:40 PM BIG MACHINE CONSULTANT Office Visit [facility] [address] [place] [address] Epifanio Brown MD [address] [place] [address] Health Maintenance Due Date Last Done Comments RSV vaccine for adults or (1 - 1-dose 75+ series) 06/28/2011 BMI (ht and wt on same day) for age 18+ 05/24/2024 05/25/2023, 05/19/2022, 10/26/2021, Additional history exists Medicare Wellness for age 65+ 05/25/2024 05/25/2023, 05/19/2022 Depression screening for age 12+ 05/27/2024 05/28/2023, 05/25/2023, 05/25/2023, Additional history exists Tetanus booster 10/30/2031 10/29/2021, 02/26, 11/23/2004, Additional history exists Tdap Completed 03/13/2012 Pneumococcal series for age 50+ Completed 04/10/2014, 11/23/2004, 12/25/2002 Zoster (shingles) series for age 50+ Completed 08/01/2022, 04/28/2021, 08/22/2007, Additional history exists COVID-19 vaccine series Completed 01/14/20, 12/15/2022, 08/01/2022, Additional history exists Influenza for age 65+ Completed 01/14/2024 , 12/15/2022, 12/08/2021, Additional history exists Procedures Procedure Name Priority Date/Time Associated Diagnosis Comments LIPID PANEL W REFLEX MEASURED LDL Routine 04/08/2024 1:36 PM BIG MACHINE CONSULTANT Controlled type 2 diabetes mellitus with diabetic neuropathy, without long-term current use of insulin (HC) BASIC METABOLIC PANEL Routine 04/08/2024 1:36 PM BIG MACHINE CONSULTANT Hyponatremia CBC WITH AUTO DIFFERENTIAL Routine 03/25/2024 7:43 AM BIG MACHINE CONSULTANT Pain in right wrist C-REACTIVE PROTEIN Routine 03/25/2024 7: 43 AM BIG MACHINE CONSULTANT Pain in right wrist CBC WITH AUTO DIFFERENTIAL Routine 03/25/2024 7:43 AM BIG MACHINE CONSULTANT Pain in right wrist SCAN-MRI INTERPRETATION 03/18/2024 12:00 AM BIG MACHINE CONSULTANT SCAN-MRI INTERPRETATION 03/18/2024 12:00 AM BIG MACHINE CONSULTANT BASIC METABOLIC PANEL Routine 03/11/2024 7:45 AM BIG MACHINE CONSULTANT Essential (primary) hypertension ECHO TTE COMPLETE WO CONTRAST Routine 03/01/2024 3:15 PM BIG MACHINE CONSULTANT NSTEMI (non-ST elevated myocardial infarction) (HC) SCAN-RADIOLOGY REPORT 02/29/2024 12:00 AM BIG MACHINE CONSULTANT from Last 3 Months Results * (ABNORMAL) LIPID PANEL W REFLEX MEASURED LDL (04/08/2024 1:36 PM BIG MACHINE CONSULTANT) Pathologist [facility] CHOLESTEROL, TOTAL 109 <200 mg/dL [facility] HDL CHOLESTEROL 36(L) > OR = 40 mg/dL [facility] TRIGLYCERIDES 284(H) <150 mg/dL [facility] Comment: If a non-fasting specimen was collected, consider repeat triglyceride testing on a fasting specimen if clinically indicated. Collins et al. J. of Clin. Lipidol. 2015;9:129-169. LDL-CHOLESTEROL 40 mg/dL (calc) [facility] Comment: Reference range: <100 Desirable range <100 mg/dL for primary prevention; <70 mg/dL for patients with CHD or diabetic patients with > or = 2 CHD risk factors. LDL-C is now calculated using the Mary calculation, which is a validated novel method providing better accuracy than the Friedewald equation in the estimation of LDL-C. Esdras SS et al. GELY. 2013;310(19): 9279-7721 (http://education.[employer]/faq/LIS759) CHOL/HDLC RATIO 3.0 <5.0 (calc) [facility] NON HDL CHOLESTEROL 73 <130 mg/dL (calc) [facility] Comment: For patients with diabetes plus 1 major ASCVD risk factor, treating to a non-HDL-C goal of <100 mg/dL (LDL-C of <70 mg/dL) is considered a therapeutic option. Blood BLOOD SPECIMEN / Unknown 04/08/2024 1:36 PM BIG MACHINE CONSULTANT 04/08/2024 1:37 PM BIG MACHINE CONSULTANT Zachariah Elaine MD CHEMISTRY Final Resu lt [facility] [address] [place] [address], [facility] [address] [place] [address] * (ABNORMAL) BASIC METABOLIC PANEL (04/08/2024 1:36 PM BIG MACHINE CONSULTANT) Only the most recent of2 resultswithin the time period is included. GLUCOSE 102(H) 65 - 99 mg/dL [facility] Comment: Fasting reference interval For someone without known diabetes, a glucose value between 100 and 125 mg/dL is consistent with prediabetes and should be confirmed with a follow-up test. UREA NITROGEN (BUN) 15 7 - 25 mg/dL [facility] CREATININE 0.77 0.70 - 1.22 mg/dL [facility] EGFR 87 > OR = 60 mL/min/1. 73m2 [facility] BUN/CREATININE RATIO SEE NOTE: 6 - 22 (calc) [facility] Comment: Not Reported: BUN and Creatinine are within reference range. SODIUM 134(L) 135 - 146 mmol/L [facility] POTASSIUM 4.8 3.5 - 5.3 mmol/L [facility] CHLORIDE 99 98 - 110 mmol/L [facility] CARBON DIOXIDE 22 20 - 32 mmol/L [facility] ELECTROLYTE BALANCE 13 7 - 17 mmol/L (calc) [facility] CALCIUM 9.8 8.6 - 10.3 mg/dL [facility] Blood BLOOD SPECIMEN / Unknown 04/08/2024 1:36 PM BIG MACHINE CONSULTANT 04/08/2024 1:37 PM BIG MACHINE CONSULTANT us Zachariah Elaine MD CHEMISTRY Final Resu lt [facility] [address] [place] [address], [facility] [address] [place] [phone] * (ABNORMAL) CBC WITH AUTO DIFFERENTIAL (03/25/2024 7:43 AM BIG MACHINE CONSULTANT) WHITE BLOOD COUNT 6.9 4.5 - 11.0 thou/cu mm 03/25/2024 8:46 AM [facility] RED BLOOD COUNT 4.84 4.30 - 5.90 mil/cu mm 03/25/2024 8:46 AM [facility] HEMOGLOBIN 13.4(L) 13.5 - 17.5 g/dL 03/25/2024 8:46 AM [facility] HEMATOCRIT 39.7 37.0 - 53.0 % 03/25/2024 8:46 AM [facility] MCV 82 80 - 100 fL 03/25/2024 8:46 AM [facility] MCH 27.7 26.0 - 34.0 pg 03/25/2024 8:46 AM [facility] MCHC 33.8 32.0 - 36.0 g/dL 03/25/2024 8:46 AM [facility] RDW 13.8 11.5 - 15.5 % 03/25/2024 8:46 AM [facility] PLATELET COUNT 291 140 - 440 thou/cu mm 03/25/2024 8:46 AM [facility] MPV 8.8 6.5 - 11.0 fL 03/25/2024 8:46 AM [facility] % NEUT 58.1 % 03/25/2024 8:46 AM [facility] % LYMPH 33.1 % 03/25/2024 8:46 AM [facility] % MONO 8.0 % 03/25/2024 8:46 AM [facility] % EOS 0.7 % 03/25/2024 8:46 AM [facility] % BASO 0.1 % 03/25/2024 8:46 AM [facility] ABSOLUTE NEUTROPHILS 4.0 1.7 - 7.0 thou/cu mm 03/25/2024 8:46 AM [facility] ABSOLUTE LYMPHOCYTES 2.3 0.9 - 2.9 thou/cu mm 03/25/2024 8:46 AM [facility] ABSOLUTE MONOCYTES 0.6 <0.9 thou/cu mm 03/25/2024 8:46 AM [facility] ABSOLUTE EOSINOPHILS 0.1 <0.5 thou/cu mm 03/25/2024 8:46 AM [facility] ABSOLUTE BASOPHILS 0.0 <0.3 thou/cu mm 03/25/2024 8:46 AM [facility] Blood BLOOD SPECIMEN / Unknown Venipuncture / Unknown 03/25/2024 7:43 AM BIG MACHINE CONSULTANT 03/25/2024 8:34 AM BIG MACHINE CONSULTANT us Lei Allan MD HEMATOLOGY Final Result [facility] [address] [place] [address] * C-REACTIVE PROTEIN (03/25/2024 7:43 AM BIG MACHINE CONSULTANT) C-REACTIVE PROTEIN <0.3 <0.5 mg/dL 03/25/2024 9:10 AM BIG MACHINE CONSULTANT [facility] Blood BLOOD SPECIMEN / Unknown Venipuncture / Unknown 03/25/2024 7:43 AM BIG MACHINE CONSULTANT 03/25/2024 8:34 AM BIG MACHINE CONSULTANT us Lei Allan MD CHEMISTRY Final Result [facility] [address] [place], [place] [id number] * SCAN-MRI INTERPRETATION (03/18/2024 12:00 AM BIG MACHINE CONSULTANT) Only the most recent of2 resultswithin the time period is included. Anatomical Region Laterality Modality Other us Scanner OTHER Final Result * ECHO TTE COMPLETE WO CONTRAST (03/01/2024 3:15 PM BIG MACHINE CONSULTANT) EJECTION FRACTION 43 % LVEDD 3.5 cm EJECTION FRACTION 35 - 40% Anatomical Region Laterality Modality Ultrasound 03/01/2024 1:23 PM BIG MACHINE CONSULTANT Narrative 03/01/2024 4:25 PM BIG MACHINE CONSULTANT ECHOCARDIOGRAM MICHAEL IRIZARRY : 1935 88 years Study Date: 03/01/2024 1:23:59 PM Gender: M BP: 101/66 mmHg Height: 183.00 cm BSA: 2.13 m Weight: 91.00 kg Tech: ADRIANA Referring MD: ANIA BONILLA Site: [facility] Reading Location: Mobile [facility] Patient Location: Inpatient. Procedure: 2D, Color Doppler and Spectral Doppler. Indication for study: NSTEMI Cardiac Rhythm: Normal sinus.Study quality: Good. Final Impressions: 1. Normal LV size, mildly increased wall thickness, moderately reduced global systolic function with an estimated EF of 35 - 40%. 2. The mid to apical anterior, septal, inferior and anterolateral brooks are hypokinetic. 3. Right ventricular cavity size is normal, global systolic RV function is normal. 4. No pericardial effusion. Chamber Sizes and Function Normal left ventricular size, mildly increased wall thickness, moderately reduced global systolic function with an estimated EF of 35 - 40%. The mid to apical anterior, septal, inferior and anterolateral brooks are hypokinetic. Left atrial size is moderately enlarged. Right ventricular cavity size is normal, global systolic RV function is normal. The right atrium is normal. Right atrial area is 17 cm . The pulmonary artery is of normal size and origin. The sinus of Valsalva is normal sized. The ascending aorta is normal sized. Valves, RV Pressures and Diastolic Function The aortic valve is trileaflet, no stenosis and no regurgitation. The mitral valve is normal in structure, trace mitral regurgitation. Spectral Doppler shows Grade 1 pattern of LV diastolic filling. The tricuspid valve is normal in structure. Tricuspid regurgitation is trace regurgitation. The pulmonic valve is normal. No pulmonary regurgitation. TTE images do not appear adequate for transcather intervention with patient supine. Masses, Effusion, Shunts There is no pericardial effusion. The inferior vena cava is normal sized, respiratory size variation greater than 50%. No left to right shunting was detected by limited color flow Doppler interrogation of the interatrial septum. MEASUREMENTS AND CALCULATIONS 2-D Measurements and LV Function: LVID (d) 3.5 cm LV FS% (2D) 28 % LVID (s) 2.6 cm LVOT diameter 2.3 cm IVS (d) 1.4 cm HR 86 bpm LVPW (d) 1.2 cm LA Vol index 44 ml/m2 Ao Sinus 3.6 cm RA area 17 cm Asc Ao 3.4 cm RV Max 4C (d) 4.0 cm Diastology: Mitral Tissue Doppler E Peak 0.8 m/s e', Septum 0.06 m/s A Peak 0.8 m/s e', Lateral 0.10 m/s E/A 0.9 E/e' Average 9.82 DT 225 msec Mitral Valve: MVA 3.4 cm MV P 1/2 65 msec Tricuspid Valve and estimated PA pressures: TAPSE 2.8 cm . This study was interpreted by an [facility] accredited facility. CC: HIM (med records) [facility], Med/Surg - IP [facility]. Final Procedure Note Joyce Luis MD - 03/01/2024 ECHOCARDIOGRAM MICHAEL IRIZARRY : 1935 88 years Study Date: 03/01/2024 1:23:59 PM Gender: M BP: 101/66 mmHg Height: 183.00 cm BSA: 2.13 m Weight: 91.00 kg Tech: ADRIANA Referring MD: ANIA BONILLA Site: [facility] Reading Location: Mobile [facility] Patient Location: Inpatient. Procedure: 2D, Color Doppler and Spectral Doppler. Indication for study: NSTEMI Cardiac Rhythm: Normal sinus.Study quality: Good. Final Impressions: 1. Normal LV size, mildly increased wall thickness, moderately reducedglobal systolic function with an estimated EF of 35 - 40%. 2. The mid to apical anterior, septal, inferior and anterolateral wallsare hypokinetic. 3. Right ventricular cavity size is normal, global systolic RV functionis normal. 4. No pericardial effusion. Chamber Sizes and Function Normal left ventricular size, mildly increased wall thickness, moderatelyreduced global systolic function with an estimated EF of 35 - 40%. The midto apical anterior, septal, inferior and anterolateral brooks arehypokinetic. Left atrial size is moderately enlarged. Right ventricularcavity size is normal, global systolic RV function is normal. The rightatrium is normal. Right atrial area is 17 cm . The pulmonary artery is ofnormal size and origin. The sinus of Valsalva is normal sized. Theascending aorta is normal sized. Valves, RV Pressures and Diastolic Function The aortic valve is trileaflet, no stenosis and no regurgitation. Themitral valve is normal in structure, trace mitral regurgitation. SpectralDoppler shows Grade 1 pattern of LV diastolic filling. The tricuspid valveis normal in structure. Tricuspid regurgitation is trace regurgitation.The pulmonic valve is normal. No pulmonary regurgitation. TTE images donot appear adequate for transcather intervention with patient supine. Masses, Effusion, Shunts There is no pericardial effusion. The inferior vena cava is normal sized,respiratory size variation greater than 50%. No left to right shunting wasdetected by limited color flow Doppler interrogation of the interatrialseptum. MEASUREMENTS AND CALCULATIONS 2-D Measurements and LV Function: LVID (d) 3.5 cm LV FS% (2D) 28 % LVID (s) 2.6 cm LVOT diameter 2.3 cm IVS (d) 1.4 cm HR 86 bpm LVPW (d) 1.2 cm LA Vol index 44 ml/m2 Ao Sinus 3.6 cm RA area 17 cm Asc Ao 3.4 cm RV Max 4C (d) 4.0 cm Diastology: Mitral Tissue Doppler E Peak 0.8 m/s e', Septum 0.06 m/s A Peak 0.8 m/s e', Lateral 0.10 m/s E/A 0.9 E/e' Average 9.82 DT 225 msec Mitral Valve: MVA 3.4 cm MV P 1/2 65 msec Tricuspid Valve and estimated PA pressures: TAPSE 2.8 cm . This study was interpreted by an [facility] accredited facility. CC: HIM (med records) [facility], Med/Surg - IP [facility]. Final us Ania Bonilla MD ECHO ORD Final Result * SCAN-RADIOLOGY REPORT (02/29/2024 12:00 AM BIG MACHINE CONSULTANT) Anatomical Region Laterality Modality Other us Scanner OTHER Final Result from Last 3 Months Insurance * Guarantor: Michael Irizarry Account Type Relation to Patient Date of Phone Billing Address Personal/Family Self 1935 [address] [place] [id number] [place] ONLY MEDICARE PART B HB ONLY [place] ONLY * Guarantor: Michael Irizarry Account Type Relation to Patient Date of Phone Billing Address Personal/Family Self 1935 [address] [place] [address] HC MEDICARE PPS [place] ONLY Care Teams Roofer Assistant Relationship Specialty Start Date End Date Zachariah Elaine MD [address] [place] [id number] PCP - General Family Practice 06/14/22 Mis Yañez DO [address] [place] [address] Family Practice 09/01/20
--- OUTSIDE RECORDS SUMMARY | 2024-04-12 16:24 | XMS_ITS | Encounter Summary ---
Author Organization [facility] Address [address] [place] [address] Care Team Providers Care Hydraulic Riveter Name Role Phone Elsewhere, Pcp Primary Care Provider Unavailabl e Reason for Referral * Medication Prior Authorization - Closed Specialty Diagnoses / Procedures Referred By Tab riley Referred To Contact Diagnoses Chronic Insomnia Disorder Zee Galindo M.D. [address] [place] [address] Phone: tel: fax: Referral ID Status Reason Start Date Expiration Date Visits Re quested Visits Authorized [id number] Closed 1 1 ITY DEVELOPER Reason for Visit * Reason Comments Med Refill Encounter Details Date Type Department Care Team (Late st Contact Info) Description 03/28/2024 Refill Division of Pulmonary Medicine in [place], [place] [address] [place] [phone] Zee Galindo M.D. [address] [place] [phone] Med Refill Social History Tobacco Use Types Packs/Day Years Used Date Smoking Tobacco: Former Cigarettes 0.5 15 0 02/26/1953 - 02/27/1968 Smokeless Tobacco: Never Alcohol Use Standard Drinks/Week Comments Yes 2 [...] week 04/28/2021 How often do you attend [facility] or orthodoxy services? Never 04/28/2021 Do you belong to any clubs o r organizations such as alevism groups, unions, fraternal or athletic groups, or [...] Answer Date Recorded PHQ-2 Score 2 04/28/2021 [facility] of Occupat ional Health - Occupational Stress [...] place to sleep or slept in a long term (including now)? No 04/28/2021 Nutrition Answer Date [...] PM CDT Legal Sex Male 9:30 AM CLARITY DEVELOPER Gender Identity Male 09/05/2017 2:01 PM CDT Sexual Orientation Straight 09/05/2017 2: 01 PM CDT documented as of this encounter Miscellaneous Notes * Telephone Encounter - Mary Butcher M.S.N., R.N. - 03/31/2024 11:20 AM CLARITY DEVELOPER Prescription Renewal Request Medication: eszopiclone (Lunesta) 3 mg tablet Indication: insomnia (G47.00) HISTORY OF PRESENT ILLNESS Date of last visit: 07/18/2023, Provider: Poly Galindo M.D. Next visit: ordered but not yet scheduled; due 06/2024 , can be virtual or in person Prescription request matches current plan of care. Date of last prescription renewal: 10/01/2023 ASSESSMENT/PLAN Prescription pended for prescriber review. ITY DEVELOPER documented in this encounter Plan of Treatment Not on file documented as of this encounter Visit Diagnoses Diagnosis Chronic Insomnia Disorder- Primary documented in this encounter Additional Health Concerns Assessment Noted Time PHQ-9 Depression Total Score: 3 07/01/19 17 3:28 PM CDT documented as of this encounter Care Teams Hydraulic Riveter Relationship Specialty Start Date End Date Elsewhere, Pcp PCP - General Internal Medicine 02/04/21 documented as of this encounter
--- OUTSIDE RECORDS SUMMARY | 2024-04-12 16:24 | XMS_ITS | Clinical Summary ---
Author Organization [facility] Address [address] [place] [address] Care Team Providers Care Software Systems Engineer Name Role Phone Elsewhere, Pcp Primary Care Provider Unavailabl e Source Comments Patient records contain information from all sites at [facility]. For routine questions regarding patient records, call [phone] during business hours, M-F 8:00 AM - 5:00 PM Central Time. Record requests for emergency care only can be directed to [phone] at any time.[facility] Allergies Active Allergy Reactions Criticality Noted Date Comments Duloxetine Other (see comments) Medium 06/08/2003 Emotional irritability Metronidazole Other (see comments) Medium 03/13/2012 severe gi irritability Trazodone Anxiety Medium 09/24/2015 Medications * This document contains information received from the source organization and may not represent a complete record from that organization. MULTIVITAMIN ORAL Take 1 tablet by mouth daily. 04/02/19 11 Active acetaminophen (TYLENOL) 500 mg tablet Take 1-2 tablets by mouth as needed. 04/15/19 16 Active ibuprofen (ADVIL,MOTRIN) 200 mg tablet Take 200 mg by mouth every 6 (six) hours as needed for pain. Active lisinopril-hyd roCHLOROthiazi de (PRINZIDE,ZEST ORETIC) 20-12.5 mg per tablet Take 1 tablet by mouth daily. Prescribed by local provider Active metFORMIN XR (GLUCOPHAGE-XR ) 500 mg 24 hr tablet Take 1,000 mg by mouth 2 (two) times a day. 04/13/19 22 Active gabapentin (NEURONTIN) 300 mg capsuleIndicat ions:Neuropath y Peripheral Take 3 capsules (900 mg total) by mouth 3 (three) times a day. Patient takes 3 capsules (900 mg) in the morning, 2 capsules (600 mg) in the afternoon, and 3 capsules (900 mg) in the evening for a total of 8 capsules per day. 240 capsule 10/04/19 22 Active omeprazole (PriLOSEC) [address] capsule TAKE ONE CAPSULE BY MOUTH ONCE DAILY 90 capsule 04/07/19 23 Active simvastatin (ZOCOR) 40 mg tablet TAKE ONE TABLET BY MOUTH EVERY EVENING 90 tablet 04/07/19 23 Active cyclobenzaprin e (FLEXERIL) 10 mg tablet as needed for muscle spasms. Active cholecalcifero l, vitamin D3, 25 mcg (1,000 Unit) tablet Take 1 tablet by mouth daily. 06/29/19 24 Active eszopiclone (Lunesta) 3 mg tabletIndicati ons:Chronic Insomnia Disorder TAKE 1 TABLET BY MOUTH IMMEDIATELY BEFORE BEDTIME, AND TAKE 1 MORE TABLET NEEDED FOR SLEEP MAINTENANCE. 60 tablet 5 03/31/19 25 Active zaleplon (Sonata) 10 mg capsule Take 1 capsule (10 mg total) by mouth at bedtime as needed for sleep. 30 capsule 04/09/19 25 Active eszopiclone (Lunesta) 3 mg tablet TAKE 1 TABLET BY MOUTH IMMEDIATELY BEFORE BEDTIME, AND TAKE 1 MORE TABLET NEEDED FOR SLEEP MAINTENANCE. 60 tablet 5 10/01/19 24 025 Discontinued Active Problems Problem Noted Date Diagnosed Date [...] Date Resolved Date Hyperparathyroidism Primary 12/23/2004 12/02/2018 Encounters * This document contains information received from the source organization and may not represent a complete record from that organization. Date Type Department Care Team Description 03/28/2024 Refill Division of Pulmonary Medicine in [place], [place] [address] [place] [address] Zee Galindo M.D. Med Refill from Last 3 Months Immunizations Immunization Administration Dates Next Due HZV (ZOSTAVAX) 05/22/2007 [...] often do you attend chur ch or evangelical services? Never 04/28/2021 Do you belong to any clubs o r organizations such as temple groups, unions, fraternal or athletic groups, or [...] Answer Date Recorded PHQ-2 Score 2 04/28/2021 [facility] [place] of Occupat ional Health - Occupational Stress [...] PM CDT Legal Sex Male 9:30 AM JOY OPERATOR HELPER Gender Identity Male 09/05/2017 2:01 PM CDT Sexual Orientation Straight 09/05/2017 2: 01 PM CDT Last Filed Vital Signs Vital Sign Reading Time Taken Comments Blood Pressure 109/67 04/28/2021 1:13 PM JOY OPERATOR HELPER Pulse 79 04/28/2021 1:13 PM JOY OPERATOR HELPER Temperature 35.6 C (96.1 F) 10/20/2020 2:58 PM CDT Respiratory Rate - - Oxygen Saturation - - Inhaled Oxygen Concentration - - Weight 91.9 kg (202 lb 9.6 oz) 04/28/2021 1:13 P M JOY OPERATOR HELPER Height 180.3 cm (5' 11) 04/28/2021 1:13 PM JOY OPERATOR HELPER Body Mass Index 28.26 04/28/2021 1:13 PM JOY OPERATOR HELPER Plan of Treatment Health Maintenance Due Date Last Done Comments Depression Monitoring (PHQ-9) 1935 RSV vaccine - (32-36 weeks) or 60+ years (1 - 1-dose 75+ series) 06/28/2011 Dilated Eye Exam 12/09/2011 12/08/2010 (Per formed elsewhere) Hepatitis B Vaccines (2 of 3 - Risk 3-dose series) 05/26/2021 04/28/2021 Diabetic Office Visit with Foot Exam 10/20/2021 10/20/2020, 12/02/2018, 11/01/2017 Urine Albumin 04/28/2022 04/28/2021, 02/0 02/2020, 12/02/2018, Additional history exists COVID-19 Vaccine ( season) 2023 12/15/2022, 08/01/2022, 12/08/2021, Additional history exists Depression Monitoring (PHQ-9 for quality tracking) 02/27/2024 Fall Risk Screen (Annual) 02/27/2024 Hemoglobin A1C 04/17/2024 10/16/2023, 03/2 10/2023, 09/26/2022, Additional history exists Creatinine Level (Kidney Function Test) 03/11/2025 03/11/2024, 05/25/2023, 09/26/2022, Additional history exists Potassium Level 03/11/2025 03/11/2024, 04/27, 09/26/2022, Additional history exists Sodium Level 03/11/2025 03/11/2024, 04/27, 09/26/2022, Additional history exists DTaP,Tdap,and Td Vaccines (3 - Td or Tdap) 10/30/2031 10/29/2021, 03/13/2012, 11/23/2004 Pneumococcal vaccine (50+ years) Completed 04/10/2014, 11/23/2004, 12/25/2002 Zoster Vaccines Completed 08/01/2022, 04/2021, 05/22/2007 Influenza Vaccine Completed 01/14/2024, , 12/08/2021, Additional history exists IPV Vaccines Aged Out No longer eligi ble based on patient's age to complete this topic Medical Devices Implanted Type Area Professor Of Violin Device Identifier Shelf Expiration Date Model / Serial / Lot Conversions - Default Historical Implant Device Implanted:2015 (Quantity not on file) Ocular Lens Bilatera l: Eye Description:Device Status Te xt - OculrLens. Cataract surgery both eyes. Procedures Procedure Name Priority Date/Time Associated Diagnosis Comments ALBUMIN, RANDOM, U Routine 04/28/2021 10 :35 AM JOY OPERATOR HELPER Diabetes Mellitus Type 2 (HCC) General Medical Examination Adult HEMOGLOBIN A1C, B Routine 04/28/2021 10: 25 AM JOY OPERATOR HELPER Diabetes Mellitus Type 2 (HCC) BASIC METABOLIC PANEL, S/P Routine 04/28/2021 10:25 AM JOY OPERATOR HELPER Hypertension Essential Primary from Last 3 Months or Most Recently Relevant to Health Maintenance Results * (ABNORMAL) Albumin, Random, Urine (04/28/2021 10:35 AM JOY OPERATOR HELPER) Albumin, Random, U 43.0 mg/L 2021 1:15 PM JOY OPERATOR HELPER DTL Comment: ----ADDITIONAL INFORMATION---- This test has been modified from the founder and ceo's instructions. Its performance characteristics were determined by [facility] in a manner consistent with CLIA requirements. This test has not been cleared or approved by the U.S. Food and Drug Administration. Creatinine 75 mg/dL 04/28/2021 12:24 PM JOY OPERATOR HELPER DTL Albumin/Creatinine Ratio 57(H) <17 mg/g 04/28/2021 1:15 PM JOY OPERATOR HELPER DTL Urine (Urine, Midstream) 04/28/2021 10:35 AM JOY OPERATOR HELPER 04/28/2021 11:48 AM JOY OPERATOR HELPER Saravanan Mccoy M.D. LAB URINE ORDERABLES Final R esult Performing Organization Address City/[facility]/ZIP Co de Phone Number [facility] [address] [place] [address], [facility] [address] [place] [address] * (ABNORMAL) Hemoglobin A1c (04/28/2021 10:25 AM JOY OPERATOR HELPER) Hemoglobin A1c, B 6.4(H) 4.0 - 5.6 % 04/28/2021 11:34 AM JOY OPERATOR HELPER DTL Comment: Hemoglobin A1c values of 5.7-6.4 percent indicate an increased risk for developing diabetes mellitus. In diabetic patients, HbA1c goals should be discussed with healthcare provider. Blood (Blood, Venous) 04/28/2021 10:25 AM JOY OPERATOR HELPER 04/28/2021 10:53 AM JOY OPERATOR HELPER us Saravanan Mccoy M.D. LAB BLOOD ADD-ON Final Resul t [facility] [address] [place] [address], [facility] [address] [place] [address] from Last 3 Months or Most Recently Relevant to Health Maintenance Insurance MEDICARE [facility] Advance Directives For more information, please contact: [phone] Documents on File Type Date Recorded Patient Road Cleaner Expl anation Advance Directives 04/01/2010 12:00 AM Latisha perea document. See document viewer. Care Teams Software Systems Engineer Relationship Specialty Start Date End Date Elsewhere, Pcp PCP - General Internal Medicine 02/04/21
--- NOTE | 2024-04-12 17:04 | ED.WEAKNESS ---
HPI - Weakness General Chief complaint: Weakness Stated complaint: SOB, weakness, metallic taste Time Seen by Provider: 04/12/24 16:24 History of Present Illness HPI Narrative: This 88-year-old male comes in by ambulance stating that he has stiffness and weakness that is significantly worse today. He does report a history of stiffness secondary to spinal stenosis. Today he states that he was hardly able to get up and could not make it to the bathroom. He did not take his blood pressure medicines this morning. He does report a a metallic taste in his mouth. He states that he took zolpidem last night for the 1st time to attempt to treat his insomnia. He states that he did not sleep a wink last night despite taking this medicine. Prior to this he was taking a different medicine for insomnia. He also recently started Zoloft. Related Data Home Medications ?Medication ?Instructions ?Recorded ?Confirmed metformin 500 mg tablet,extended 1,000 mg PO BID 10/29/21 03/26/24 release 24 hr gabapentin 300 mg capsule 600 mg PO BID@,14 11/04/21 03/26/24 (Neurontin) multivitamin 1 tab PO DAILY 11/04/21 03/26/24 omeprazole 20 mg capsule,delayed 20 mg PO DAILY 11/04/21 03/26/24 release cholecalciferol (vitamin D3) 25 25 mcg PO DAILY 02/29/24 03/26/24 mcg (1,000 unit) tablet gabapentin 300 mg capsule 1,200 mg PO HS 02/29/24 03/26/24 methocarbamol 750 mg tablet 750 mg PO TID PRN muscle spasm 02/29/24 03/26/24 sertraline 100 mg tablet 100 mg PO DAILY 04/12/24 04/12/24 zaleplon 10 mg capsule 10 mg PO QPM PRN insomnia 04/12/24 04/12/24 Previous Rx's ?Medication ?Instructions ?Recorded acetaminophen 325 mg tablet 650 mg (2 x 325 mg) PO Q6H PRN As 03/04/24 needed for fever, headache, or minor pain #100 tabs aspirin 81 mg tablet,delayed 81 mg PO DAILY #100 tabs 03/04/24 release lisinopril 10 mg tablet 10 mg PO DAILY #30 tabs 03/04/24 metoprolol succinate 25 mg 25 mg PO DAILY #30 tabs 03/04/24 tablet,extended release 24 hr rosuvastatin 40 mg tablet 40 mg PO DAILY #30 tabs 03/04/24 torsemide 5 mg tablet 5 mg PO DAILY@0800 #30 tabs 03/04/24 Allergies Allergy/AdvReac Type Severity Reaction Status Date / Time duloxetine Allergy emotional Verified 03/26/24 09:36 irritability metronidazole Allergy severe GI Verified 03/26/24 09:36 irritability trazodone Allergy Anxiety Verified 03/26/24 09:36 Review of Systems Status of ROS: Reports: 10 or more systems reviewed and unremarkable except as noted in History and below Narrative: Constitutional: No fevers, no weight gain or loss. Eyes: No discharge. No vision changes. HENT: No congestion, no sore throat, no ear pain. Cardiovascular: No chest pain, no palpitations. Respiratory: No shortness of breath, no wheezes, no cough. Gastrointestinal: No abdominal pain, no vomiting, no diarrhea. Genitourinary: No dysuria, no hematuria. Musculoskeletal: Normal range of motion. Skin: No rashes, no pruritis. Neurological: No dizziness, sensory change, speech change. Generalized weakness and stiffness in his lower extremity. Endo/Heme/Allergies: No bruising or bleeding. No polydipsia. Pysch: no suicidality, no anxiety, no insomnia. All other systems reviewed and are negative. [facility] Medical History Sore throat ?J02.9 - Acute pharyngitis, unspecified (ICD-10) Abdominal pain ?R10.9 - Unspecified abdominal pain (ICD-10) Right shoulder pain ?M25.511 - Pain in right shoulder (ICD-10) Musculoskeletal immobility ?Z74.09 - Other reduced mobility (ICD-10) Non-STEMI (non-ST elevated myocardial infarction) ?I21.4 - Non-ST elevation (NSTEMI) myocardial infarction (ICD-10) Spinal stenosis at L4-L5 level ?M48.061 - Spinal stenosis, lumbar region without neurogenic claudication (ICD-10) Bilateral inguinal hernia ?K40.20 - Bilateral inguinal hernia, without obstruction or gangrene, not specified as recurrent (ICD-10) ED (erectile dysfunction) ?N52.9 - Male erectile dysfunction, unspecified (ICD-10) Hyperlipidemia, unspecified ?E78.5 - Hyperlipidemia, unspecified (ICD-10) Incomplete emptying of bladder ?R33.9 - Retention of urine, unspecified (ICD-10) Muscular atrophy ?M62.50 - Muscle wasting and atrophy, not elsewhere classified, unspecified site (ICD-10) Major depressive disorder ?F32.9 - Major depressive disorder, single episode, unspecified (ICD-10) GERD (gastroesophageal reflux disease) ?K21.9 - Gastro-esophageal reflux disease without esophagitis (ICD-10) Insomnia ?G47.00 - Insomnia, unspecified (ICD-10) Neuropathy, peripheral ?G62.9 - Polyneuropathy, unspecified (ICD-10) Left foot drop ?M21.372 - Foot drop, left foot (ICD-10) Neuropathy ?G62.9 - Polyneuropathy, unspecified (ICD-10) DM (diabetes mellitus), type 2 ?E11.9 - Type 2 diabetes mellitus without complications (ICD-10) Hypertension ?I10 - Essential (primary) hypertension (ICD-10) Surgical History H/O right wrist surgery ?Z98.890 - Other specified postprocedural states (ICD-10) S/P TURP (transurethral resection of prostate) ?Z90.79 - Acquired absence of other genital organ(s) (ICD-10) History of colectomy ?Z90.49 - Acquired absence of other specified parts of digestive tract (ICD-10) History of cataract removal with insertion of prosthetic lens ?Z98.49 - Cataract extraction status, unspecified eye (ICD-10) ?Z96.1 - Presence of intraocular lens (ICD-10) History of hammertoe correction ?Z98.890 - Other specified postprocedural states (ICD-10) ?Z87.39 - Personal history of other diseases of the musculoskeletal system and connective tissue (ICD-10) Family History Brother Diabetes Heart disease Multiple sclerosis Sister Cancer of kidney Father Alcohol dependence Alzheimers disease Social History Narrative: He lives at [facility] on the [place] with his , Honey. Honey is healthcare power of regulatory attorney. DNR. Remote history of smoking, 55 years ago. Rarely drinks alcohol. Primarily wheelchair-bound with difficulties with bed to chair transfer. What is your current living situation?: I presently have a place to live Problems where you live: no known problems Problems where you live details: N/A In the past 12 months, utilities in danger of being shut off: no In past 12 months, lack of transportation kept you from medical appts, meetings, work, or getting things needed for daily living: no In the past 12 mos, have been you worried that your food would run out before you had money to buy more?: never true In the past 12 mos, the food you bought just didn't last and you didn't have money to buy more?: never true Highest level of school completed/degree received: Doctoral degree Smoking Status: Former smoker What tobacco products do you use: cigarettes Smoking quit date/years: >15 years ago Do you use any of these nicotine containing products: None Second hand tobacco smoke exposure: Yes How often do you have a drink containing alcohol: 2-4 times a month How many standard drinks containing alcohol do you have on a typical day: 1 or 2 How often do you have six or more drinks on one occasion: Never AUDIT-C Alcohol total score: 2 Non-prescribed substance use: denies use Caffeine: Yes How often does anyone, including family, friends and others, physically hurt you: never How often does anyone, including family, friends and others, insult or talk down to you: never How often does anyone, including family, friends and others, threaten you with harm: never How often does anyone, including family, friends and others, scream or curse at you: never service: No Exam Narrative: Exam Narrative: Constitutional: Well-developed, well-nourished, no acute distress. HEENT: Normocephalic, atraumatic. Neck: Normal range of motion. Nontender. Supple. Heart: Regular. No murmurs. Normal rate. Intact distal pulses. Lungs: Clear to auscultation. No chest discomfort. No wheezes, rhonchi, or rales. Abdomen: Normal bowel sounds. Nontender. No rebound tenderness. Genitalia: Deferred. Back: No midline tenderness. Normal range of motion. Extremities: Normal range of motion. No injury. Skin: Intact. No rash. Warm. No erythema or pallor. Neurologic: No altered sensation. No weakness. Alert and oriented. No facial asymmetry. Tongue is midline. Able to raise each leg from the bed. Psychiatric: No suicidality. No anxiety or depression. No insomnia. Nursing notes and vitals signs are reviewed. Const: Vital Signs, click to edit/add: Vital Signs - 24 hr 04/12/24 16:28 04/12/24 16:30 04/12/24 16:30 Temperature 97.4 F L Pulse Rate 70 68 Pulse Rate [Pulse Oximeter] 72 Respiratory Rate 18 Blood Pressure 196/96 H Blood Pressure [Ri ght Arm] Blood Pressure [Ri ght Upper Arm] 196/96 H Pulse Oximetry 95 95 95 Oxygen Delivery Me thod Room Air 04/12/24 16:31 04/12/24 16:45 04/12/24 17:00 Temperature Pulse Rate 62 84 63 Pulse Rate [Pulse Oximeter] Respiratory Rate 13 4 L Blood Pressure Blood Pressure [Ri ght Arm] Blood Pressure [Ri ght Upper Arm] Pulse Oximetry 96 96 96 Oxygen Delivery Me thod 04/12/24 17:08 04/12/24 17:15 04/12/24 17:30 Temperature Pulse Rate 73 63 67 Pulse Rate [Pulse Oximeter] Respiratory Rate 8 L 12 9 L Blood Pressure 194/108 H Blood Pressure [Ri ght Arm] Blood Pressure [Ri ght Upper Arm] Pulse Oximetry 95 95 94 Oxygen Delivery Me thod 04/12/24 17:32 04/12/24 17:45 04/12/24 18:00 Temperature Pulse Rate 62 61 65 Pulse Rate [Pulse Oximeter] Respiratory Rate 13 19 12 Blood Pressure 158/85 H Blood Pressure [Ri ght Arm] Blood Pressure [Ri ght Upper Arm] Pulse Oximetry 94 93 95 Oxygen Delivery Me thod 04/12/24 18:02 04/12/24 18:38 Temperature 97.6 F Pulse Rate 64 Pulse Rate [Pulse Oximeter] 74 Respiratory Rate 24 18 Blood Pressure 171/95 H Blood Pressure [Ri ght Arm] 216/108 H Blood Pressure [Ri ght Upper Arm] Pulse Oximetry 93 93 Oxygen Delivery Me thod Room Air Course Vital Signs Vital signs: Initial Vital Signs Pulse Rate 70 04/12/24 16:28 Pulse Oximetry 95 04/12/24 16:28 Vital Signs Pulse Rate 70 04/12/24 16:28 Pulse Oximetry 95 04/12/24 16:28 Temperature 97.6 F 04/12/24 18:38 Pulse Rate 74 04/12/24 18:38 Respiratory Rate 18 04/12/24 18:38 Blood Pressure 216/108 H 04/12/24 18:38 Pulse Oximetry 93 04/12/24 19:46 Oxygen Delivery Method Room Air 04/12/24 19:46 Medications Administered Medications: Generic Name Dose Route Start Last Admin Trade Name Freq PRN Reason Stop Dose Admin Enoxaparin Sodium 40 mg 04/12/24 21:00 04/12/24 20:40 Enoxaparin 40 Mg/0.4 Ml Inj SUBCUT 40 mg HS LENO Administration Gabapentin 900 mg 04/12/24 21:00 04/12/24 20:39 Gabapentin 300 Mg Capsule PO 900 mg HS LENO Administration Discontinued Medications Generic Name Dose Route Start Last Admin Trade Name Freq PRN Reason Stop Dose Admin Sodium Chloride 1,000 mls @ 1,000 mls/hr 04/12/24 18:15 04/12/24 18:13 0.9 % Sodium Chloride 1000 Ml IV 04/12/24 19:14 1,000 mls/hr .Q1H LENO Administration MDM - Weakness Lab Data Labs: Lab Results 04/12/24 04/12/24 04/12/24 Range/Units 16:33 17:22 17:55 WBC 6.64 (4.50-11.00) K/uL RBC 4.52 (4.30-5.90) m/uL Hgb 12.3 L (13.5-17.5) gm/dL Hct 36.5 L (37.0-53.0) % MCV 81 (80-100) fL MCH 27 (26-34) pg MCHC 34 (32-36) gm/dL RDW Coeff of Tamir 13.1 (11.5-15.5) % Plt Count 214 (140-440) K/uL Neut % (Auto) 69.8 (42.0-72.0) % Lymph % (Auto) 21.8 (20-44) % Burnett % (Auto) 8.0 (0.0-11.0) % Eos % (Auto) 0.2 (0.0-7.0) % Baso % (Auto) 0.0 (0.0-3.0) % Neut # (Auto) 4.64 (1.7-7.0) K/uL Lymph # (Auto) 1.45 (0.90-2.90) K/uL Burnett # (Auto) 0.50 (0.00-0.90) K/UL Eos # (Auto) 0.01 (0.00-0.50) K/uL Baso # (Auto) 0.00 (0.00-0.30) K/uL Abs Immat Gran (auto) 0.01 (0.00-0.30) K/uL Imm/Tot Granulo (auto) 0.2 % Sodium 122 L* (135-149) mmol/L Potassium 4.4 (3.6-5.1) mmol/L Chloride 90 L (96-114) mmol/L Carbon Dioxide 20 (20-32) mmol/L Anion Gap 12 (7-15) mEq/L BUN 12 (7-30) mg/dL Creatinine 0.5 (0.5-1.5) mg/dL Estimated Creat Clear 57.12 Estimated GFR 99 ml/min Glucose 116 H (60-115) mg/dL Calcium 9.3 (8.4-10.6) mg/dL Magnesium 1.7 (1.5-2.6) mg/dL Urine Color Yellow (Yellow) Urine Appearance Clear (Clear) Urine pH 8.0 (5.0-8.5) Ur Specific [place] 1.020 (1.000-1.030) Urine Protein 1+ A (Negative) Urine Glucose (UA) Negative (Negative) Urine Ketones Negative (Negative) Urine Blood Negative (Negative) Urine Nitrite Negative (Negative) Urine Bilirubin Negative (Negative) Urine Urobilinogen 0.2 (0.2-1.0) Ur Leukocyte Esterase Negative (Negative) Urine RBC 0-2 (0-2) Urine WBC 0-2 (0-5) Ur Squamous Epith Cells Few (None-Few) Urine Bacteria None (None) Urine Mucus Few A (None) Ur Random Sodium 60 SARS-CoV-2 (PCR) Negative SARS-CoV-2 (Negative) Influenza Type A (PCR) Negative PCR FLU A (Negative) Influenza Type B (PCR) Negative PCR FLU B (Negative) RSV (PCR) Negative PCR RSV (Negative) ECG Data Attestation: I personally reviewed and interpreted this ECG as follows: Interpretation: Normal sinus rhythm. Rate is 68 beats per minute. There are no ST or T-wave abnormalities. First degree AV block.
[2024-04-12 17:26] LABS: PCR FLU A Negative PCR FLU A (Negative); PCR FLU B Negative PCR FLU B (Negative); PCR RSV Negative PCR RSV (Negative); SARS PCR* Negative SARS-CoV-2 (Negative)
[2024-04-12 17:32] LABS: Eosinophils Absolute Auto 0.01 K/uL (0.00-0.50); Eosinophils Percent Auto 0.2 % (0.0-7.0); Hematocrit 36.5 % (37.0-53.0); Hemoglobin* 12.3 gm/dL (13.5-17.5); Immature Granulocytes Abs Auto 0.01 K/uL (0.00-0.30); Immature Granulocytes Pct Auto 0.2 %; Lymphocytes Absolute Auto 1.45 K/uL (0.90-2.90); Lymphocytes Percent Auto 21.8 % (20-44); Mean Corpuscular HGB Conc 34 gm/dL (32-36); Mean Corpuscular Hemoglobin 27 pg (26-34); Mean Corpuscular Volume 81 fL (80-100); Neutrophils Absolute Auto 4.64 K/uL (1.7-7.0); Neutrophils Percent Auto 69.8 % (42.0-72.0); Platelet Count* 214 K/uL (140-440); RDW Coefficient of Variation % 13.1 % (11.5-15.5); Red Blood Count 4.52 m/uL (4.30-5.90); White Blood Count* 6.64 K/uL (4.50-11.00)
[2024-04-12 17:33] LABS: Slide Review Reflex No
--- OUTSIDE RECORDS SUMMARY | 2024-04-12 17:34 | XMS_ITS | Clinical Summary ---
Author Organization [facility] Address [place], [place] [address] Care Team Providers Care Leak Hunter Name Role Phone Mis Yañez DO Unavailable Zachariah Elaine MD Primary Care Provider [phone] Allergies Active Allergy Reactions Criticality Noted Date [...] bed. Length of need 99 months. Bed headline writer:no 1 Each 10/18/19 Active Diabetic ShoeIndications:C ontrolled [...] prostate 7 Overview (01/21/2021): being watched per [place] specialist:sp TURP Incomplete bladder emptying 01/08/2006 Primary hypertension 12/12/2005 Overview (01/21/2021): Patient states that he had stress test at [place] approximately 2010: negative. Has been told that he has a benign Cardiac Arrhythmia - no abnormality heard today. 06/12/2012 Erectile dysfunction 11/23/2004 Encounters Date Type Department Care Team Description 04/08/2024 1:55 PM CORPORATE PILOT Office Visit [facility] [address] [place] [address] Zachariah Elaine MD Hospital F/U (Heart attack); Referral (Would like a back injection again with Dr. Brown) 04/08/2024 11:40 AM CORPORATE PILOT Office Visit [facility] [place] [facility] [address] [place] [address] Lenny Cortez MD Follow Up (Follow up neuropathy ) 04/08/2024 Telephone [facility] [address] [place] [address] Zachariah Elaine MD Follow Up 04/07/2024 Travel 04/02/[address] [address] Zachariah Elaine MD Medication Management 03/28/2024 Refill [facility] [address] [place] [address] Zachariah Elaine MD Refill Request (Simvastatin) 03/28/2024 Transcribe Orders [facility] [address] [place] [address] Anila Hendricks PA 03/27/2024 Telephone [facility] [address] [place] [address] Zachariah Elaine MD Questions 03/26/2024 Nurse Triage [facility] [address] [place] [address] Zachariah Elaine MD Concerns 03/24/2024 Lab Requisition [facility] [phone] Lei Allan MD 03/18/2024 Orders Only [facility] Scanner 1 scan: (1-Ord) [facility], SHOULDER RT, 03/18/2024 03/18/2024 Orders Only [facility] Scanner 1 scan: (1-Ord) [facility], SHOULDER PAIN, 03/18/2024 03/10/2024 Telephone [facility] [address] [phone] Lenny Cortez MD Questions 03/06/2024 Lab Requisition [facility] [phone] Lei Allan MD 03/02/2024 Telephone [facility] [address] [place] [address] Sixto Law MD NSTEMI 03/01/2024 1:15 PM CORPORATE PILOT Ancillary Procedure [facility] [place] [facility] [address] [place] [address] 02/29/2024 Orders Only [facility] Scanner 1 scan: (1-Ord) [place], XR CHEST 1V PORTABLE, 02/29/2024 02/29/2024 Telephone [facility] [address] [place] [address] Vladimir Blanco MD 02/28/2024 Telephone [facility] [address] [phone] Lenny Cortez MD Appointment Request 02/28/2024 Nurse Triage [facility] [address] [place] [address] Zachariah Elaine MD Musculoskeletal Problem 02/26/2024 Nurse Triage [facility] [address] [place] [address] Zachariah Elaine MD from Last 3 Months [...] PM CDT Legal Sex Male 5:24 AM CORPORATE PILOT Gender Identity Male 09/18/2019 9:00 PM CDT Sexual Orientation Straight 09/18/2019 9: 00 PM CDT Occupation Industry Job Start Date Job End Date 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 [employer] Not on file Not o n file Not on file Obstetrics History Last Filed Vital Signs Vital Sign Reading Time Taken Comments Blood Pressure 115/67 04/08/2024 12:40 PM CORPORATE PILOT Pulse 67 04/08/2024 12:40 PM CORPORATE PILOT Temperature 36.4 C (97.6 F) 04/08/2024 12:40 PM CORPORATE PILOT Respiratory Rate 16 07/05/2022 4:36 PM CDT Oxygen Saturation 95% 04/08/2024 12:40 PM CORPORATE PILOT Inhaled Oxygen Concentration - - Weight 92 kg (202 lb 12.8 oz) 10/16/2023 2:54 PM CDT Height 184.2 cm (6' 0.5) 05/25/2023 2:37 PM CDT Body Mass Index 27.13 05/25/2023 2:37 PM CDT Plan of Treatment Upcoming Encounters Date Type Department Care Team (Late st Contact Info) Description 04/15/2024 2:40 PM CORPORATE PILOT Office Visit [facility] at [facility] [address] [place] [address] Epifanio Brown MD [address] [place] [address] Health Maintenance Due Date Last Done Comments [...] REFLEX MEASURED LDL Routine 04/08/2024 1:36 PM CORPORATE PILOT Controlled type 2 diabetes mellitus with diabetic neuropathy, without long-term current use of insulin (HC) BASIC METABOLIC PANEL Routine 04/08/2024 1:36 PM CORPORATE PILOT Hyponatremia CBC WITH AUTO DIFFERENTIAL Routine 03/25/2024 7:43 AM CORPORATE PILOT Pain in right wrist C-REACTIVE PROTEIN Routine 03/25/2024 7: 43 AM CORPORATE PILOT Pain in right wrist CBC WITH AUTO DIFFERENTIAL Routine 03/25/2024 7:43 AM CORPORATE PILOT Pain in right wrist SCAN-MRI INTERPRETATION 03/18/2024 12:00 AM CORPORATE PILOT SCAN-MRI INTERPRETATION 03/18/2024 12:00 AM CORPORATE PILOT BASIC METABOLIC PANEL Routine 03/11/2024 7:45 AM CORPORATE PILOT Essential (primary) hypertension ECHO TTE COMPLETE WO CONTRAST Routine 03/01/2024 3:15 PM CORPORATE PILOT NSTEMI (non-ST elevated myocardial infarction) (HC) SCAN-RADIOLOGY REPORT 02/29/2024 12:00 AM CORPORATE PILOT from Last 3 Months Results * (ABNORMAL) LIPID PANEL W REFLEX MEASURED LDL (04/08/2024 1:36 PM CORPORATE PILOT) Pathologist [facility] CHOLESTEROL, TOTAL 109 <200 mg/dL [facility] [...] LDL-C. Esdras SS et al. GELY. 2013;310(19): 3649-7359 (http://education.ki work/faq/SKQ801) CHOL/HDLC RATIO 3.0 <5.0 (calc) [facility] NON HDL CHOLESTEROL 73 <130 mg/dL (calc) [facility] Comment: For patients with diabetes plus 1 major ASCVD risk factor, treating to a non-HDL-C goal of <100 mg/dL (LDL-C of <70 mg/dL) is considered a therapeutic option. Blood BLOOD SPECIMEN / Unknown 04/08/2024 1:36 PM CORPORATE PILOT 04/08/2024 1:37 PM CORPORATE PILOT Zachariah Elaine MD CHEMISTRY Final Resu lt Process Data Control [place] [facility] [address] [place] [address], [facility] [address] [place] [address] * (ABNORMAL) BASIC METABOLIC PANEL (04/08/2024 1:36 PM CORPORATE PILOT) Only the most recent of2 resultswithin the time period is included. GLUCOSE 102(H) 65 - 99 mg/dL [facility] Comment: Fasting reference interval For someone without known diabetes, a glucose value between 100 and 125 mg/dL is consistent with prediabetes and should be confirmed with a follow-up test. UREA NITROGEN (BUN) 15 7 - 25 mg/dL [facility] CREATININE 0.77 0.70 - 1.22 mg/dL [facility] EGFR 87 > OR = 60 mL/min/1. 73m2 [facility] BUN/CREATININE RATIO SEE NOTE: 6 - 22 (calc) [facility] Comment: Not Reported: BUN and Creatinine [...] BLOOD SPECIMEN / Unknown 04/08/2024 1:36 PM CORPORATE PILOT 04/08/2024 1:37 PM CORPORATE PILOT us Zachariah Elaine MD CHEMISTRY Final Resu lt Process Data Control [facility] [address] [place] [address], [facility] [address] [place] [phone] * (ABNORMAL) CBC WITH AUTO DIFFERENTIAL (03/25/2024 7:43 AM CORPORATE PILOT) WHITE BLOOD COUNT 6.9 4.5 - 11.0 thou/cu mm 03/25/2024 8:46 AM [facility] RED BLOOD COUNT 4.84 4.30 - 5.90 mil/cu mm 03/25/2024 8:46 AM [facility] HEMOGLOBIN 13.4(L) 13.5 - 17.5 g/dL 03/25/2024 8:46 AM [facility] HEMATOCRIT 39.7 37.0 - 53.0 % 03/25/2024 8:46 AM [facility] MCV 82 80 - 100 fL 03/25/2024 8:46 AM [facility] MCH 27.7 26.0 - 34.0 pg 03/25/2024 8:46 AM [facility] MCHC 33.8 32.0 - 36.0 g/dL 03/25/2024 8:46 AM [facility] RDW 13.8 11.5 - 15.5 % 03/25/2024 8:46 AM [facility] PLATELET COUNT 291 140 - 440 thou/cu mm 03/25/2024 8:46 AM [facility] MPV 8.8 6.5 - 11.0 fL 03/25/2024 8:46 AM [facility] % NEUT 58.1 % 03/25/2024 8:46 AM [facility] % LYMPH 33.1 % 03/25/2024 8:46 AM [facility] % MONO 8.0 % 03/25/2024 8:46 AM [facility] % EOS 0.7 % 03/25/2024 8:46 AM [facility] % BASO 0.1 % 03/25/2024 8:46 AM [facility] ABSOLUTE NEUTROPHILS 4.0 1.7 - 7.0 thou/cu mm 03/25/2024 8:46 AM [facility] ABSOLUTE LYMPHOCYTES 2.3 0.9 - 2.9 thou/cu mm 03/25/2024 8:46 AM [facility] ABSOLUTE MONOCYTES 0.6 <0.9 thou/cu mm 03/25/2024 8:46 AM [facility] ABSOLUTE EOSINOPHILS 0.1 <0.5 thou/cu mm 03/25/2024 8:46 AM [facility] ABSOLUTE BASOPHILS 0.0 <0.3 thou/cu mm 03/25/2024 8:46 AM [facility] Blood BLOOD SPECIMEN / Unknown Venipuncture / Unknown 03/25/2024 7:43 AM CORPORATE PILOT 03/25/2024 8:34 AM CORPORATE PILOT us Lei Allan MD HEMATOLOGY Final Result [facility] [address] [place] [address] * C-REACTIVE PROTEIN (03/25/2024 7:43 AM CORPORATE PILOT) C-REACTIVE PROTEIN <0.3 <0.5 mg/dL 03/25/2024 9:10 AM CORPORATE PILOT [facility] Blood BLOOD SPECIMEN / Unknown Venipuncture / Unknown 03/25/2024 7:43 AM CORPORATE PILOT 03/25/2024 8:34 AM CORPORATE PILOT us Lei Allan MD CHEMISTRY Final Result [facility] [address] [place], [place] [id number] * SCAN-MRI INTERPRETATION (03/18/2024 12:00 AM CORPORATE PILOT) Only the most recent of2 resultswithin the time period is included. Anatomical Region Laterality Modality Other us Scanner OTHER Final Result * ECHO TTE COMPLETE WO CONTRAST (03/01/2024 3:15 PM CORPORATE PILOT) EJECTION FRACTION 43 % LVEDD 3.5 cm EJECTION FRACTION 35 - 40% Anatomical Region Laterality Modality Ultrasound 03/01/2024 1:23 PM CORPORATE PILOT Narrative 03/01/2024 4:25 PM CORPORATE PILOT ECHOCARDIOGRAM MICHAEL IRIZARRY : 1935 88 years Study Date: 03/01/2024 1:23:59 PM Gender: M BP: 101/66 mmHg Height: 183.00 cm BSA: 2.13 m Weight: 91.00 kg Tech: ADRIANA Referring MD: ANIA BONILLA Site: [facility] Reading Location: Mobile [facility] Patient Location: Inpatient. Procedure: 2D, Color Doppler [...] . This study was interpreted by an [facility] accredited facility. CC: HIM (med records) [facility], Med/Surg - IP [facility]. Final Procedure Note Joyce Luis MD - 03/01/2024 ECHOCARDIOGRAM MICHAEL IRIZARRY : 1935 88 years Study Date: 03/01/2024 1:23:59 PM Gender: M BP: 101/66 mmHg Height: 183.00 cm BSA: 2.13 m Weight: 91.00 kg Tech: ADRIANA Referring MD: ANIA BONILLA Site: [facility] Reading Location: Mobile [facility] Patient Location: Inpatient. Procedure: 2D, Color Doppler [...] [facility] accredited facility. CC: HIM (med records) [facility], Med/Surg - IP [facility]. Final us Ania Bonilla MD ECHO ORD Final Result * SCAN-RADIOLOGY REPORT (02/29/2024 12:00 AM CORPORATE PILOT) Anatomical Region Laterality Modality Other us Scanner OTHER Final Result from Last 3 Months Insurance * Guarantor: Michael Irizarry Account Type Relation to Patient Date of Phone Billing Address Personal/Family Self 1935 [address] [place] [phone] [employer] [place] MR PB ONLY MEDICARE PART B HB ONLY [employer] BL[employer] HB ONLY * Guarantor: Michael Irizarry Account Type Relation to Patient Date of Phone Billing Address Personal/Family Self 1935 [address] [place] [address] HC MEDICARE PPS [employer] [place] [employer] BLUE HB ONLY Care Teams Leak Hunter Relationship Specialty Start Date End Date Zachariah Elaine MD [address] [place] [address] PCP - General Family Practice 06/14/22 Mis Yañez DO [address] [place] [address] Family Practice 09/01/20
--- OUTSIDE RECORDS SUMMARY | 2024-04-12 17:35 | XMS_ITS | Clinical Summary ---
Author Organization [facility] Address [address] [place] [address] Care Team Providers Care Farm Boss Name Role Phone Elsewhere, Pcp Primary Care Provider Unavailabl e Source Comments Patient records contain information from all sites at [facility]. For routine questions regarding patient records, call [phone] during business hours, M-F 8:00 AM - 5:00 PM Central Time. Record requests for emergency care only can be directed to [phone] at any time.[facility] Allergies Active Allergy Reactions Criticality Noted Date [...] 03/28/2024 Refill Division of Pulmonary Medicine in [place], [place] [address] [place] [address] Zee Galindo M.D. Med Refill from Last [...] often do you attend chur ch or taoism services? Never 04/28/2021 Do you belong to any clubs o r organizations such as baptism groups, unions, fraternal or athletic groups, or [...] Answer Date Recorded PHQ-2 Score 2 04/28/2021 [facility] [place] of Occupat ional Health - Occupational Stress [...] PM CDT Legal Sex Male 9:30 AM CUT OFF SAW OPERATOR PIPE BLANKS Gender Identity Male 09/05/2017 2:01 PM CDT Sexual Orientation Straight 09/05/2017 2: 01 PM CDT Last Filed Vital Signs Vital Sign Reading Time Taken Comments Blood Pressure 109/67 04/28/2021 1:13 PM CUT OFF SAW OPERATOR PIPE BLANKS Pulse 79 04/28/2021 1:13 PM CUT OFF SAW OPERATOR PIPE BLANKS Temperature 35.6 C (96.1 F) 10/20/2020 2:58 PM CDT Respiratory Rate - - Oxygen Saturation - - Inhaled Oxygen Concentration - - Weight 91.9 kg (202 lb 9.6 oz) 04/28/2021 1:13 P M CUT OFF SAW OPERATOR PIPE BLANKS Height 180.3 cm (5' 11) 04/28/2021 1:13 PM CUT OFF SAW OPERATOR PIPE BLANKS Body Mass Index 28.26 04/28/2021 1:13 PM CUT OFF SAW OPERATOR PIPE BLANKS Plan of Treatment Health Maintenance Due Date [...] this topic Medical Devices Implanted Type Area Cottrell Blower Device Identifier Shelf Expiration Date Model / Serial / Lot Conversions - Default Historical Implant Device Implanted:2015 (Quantity not on file) Ocular Lens Bilatera l: Eye Description:Device Status Te xt - OculrLens. Cataract surgery both eyes. Procedures Procedure Name Priority Date/Time Associated Diagnosis Comments ALBUMIN, RANDOM, U Routine 04/28/2021 10 :35 AM CUT OFF SAW OPERATOR PIPE BLANKS Diabetes Mellitus Type 2 (HCC) General Medical Examination Adult HEMOGLOBIN A1C, B Routine 04/28/2021 10: 25 AM CUT OFF SAW OPERATOR PIPE BLANKS Diabetes Mellitus Type 2 (HCC) BASIC METABOLIC PANEL, S/P Routine 04/28/2021 10:25 AM CUT OFF SAW OPERATOR PIPE BLANKS Hypertension Essential Primary from Last 3 Months or Most Recently Relevant to Health Maintenance Results * (ABNORMAL) Albumin, Random, Urine (04/28/2021 10:35 AM CUT OFF SAW OPERATOR PIPE BLANKS) Albumin, Random, U 43.0 mg/L 2021 1:15 PM CUT OFF SAW OPERATOR PIPE BLANKS DTL Comment: ----ADDITIONAL INFORMATION---- This test has been modified from the edger technician's instructions. Its performance characteristics were determined by [facility] in a manner consistent with CLIA requirements. This test has not been cleared or approved by the U.S. Food and Drug Administration. Creatinine 75 mg/dL 04/28/2021 12:24 PM CUT OFF SAW OPERATOR PIPE BLANKS DTL Albumin/Creatinine Ratio 57(H) <17 mg/g 04/28/2021 1:15 PM CUT OFF SAW OPERATOR PIPE BLANKS DTL Urine (Urine, Midstream) 04/28/2021 10:35 AM CUT OFF SAW OPERATOR PIPE BLANKS 04/28/2021 11:48 AM CUT OFF SAW OPERATOR PIPE BLANKS Saravanan Mccoy M.D. LAB URINE ORDERABLES Final R esult Performing Organization Address City/[facility]/ZIP Co de Phone Number [facility] [address] [place] [address], [facility] [address] [place] [address] * (ABNORMAL) Hemoglobin A1c (04/28/2021 10:25 AM CUT OFF SAW OPERATOR PIPE BLANKS) Hemoglobin A1c, B 6.4(H) 4.0 - 5.6 % 04/28/2021 11:34 AM CUT OFF SAW OPERATOR PIPE BLANKS DTL Comment: Hemoglobin A1c values of 5.7-6.4 percent indicate an increased risk for developing diabetes mellitus. In diabetic patients, HbA1c goals should be discussed with healthcare provider. Blood (Blood, Venous) 04/28/2021 10:25 AM CUT OFF SAW OPERATOR PIPE BLANKS 04/28/2021 10:53 AM CUT OFF SAW OPERATOR PIPE BLANKS us Saravanan Mccoy M.D. 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 See document viewer. Care Teams Farm Boss Relationship Specialty Start Date End Date Elsewhere, Pcp PCP - General Internal Medicine 02/04/21
--- OUTSIDE RECORDS SUMMARY | 2024-04-12 17:35 | XMS_ITS | Encounter Summary ---
Author Organization [facility] Address [address] [place] [address] Care Team Providers Care Video Tape Duplicator Name Role Phone Elsewhere, Pcp Primary Care Provider Unavailabl e Reason for Referral * Medication Prior Authorization - Closed Specialty Diagnoses / Procedures Referred By Tab riley Referred To Contact Diagnoses Chronic Insomnia Disorder Zee Galindo M.D. [address] [place] [address] Phone: tel: fax: Referral ID Status Reason Start Date Expiration Date Visits Re quested Visits Authorized [id number] Closed 1 1 ITIONING ROOM WORKER Reason for Visit * Reason Comments Med Refill Encounter Details Date Type Department Care Team (Late st Contact Info) Description 03/28/2024 Refill Division of Pulmonary Medicine in [place], [place] [address] [place] [phone] Zee Galindo M.D. [address] [place] [phone] Med Refill Social History Tobacco Use Types [...] week 04/28/2021 How often do you attend [facility] or pentecostalism services? Never 04/28/2021 Do you belong to any clubs o r organizations such as samaritan groups, unions, fraternal or athletic groups, or [...] Answer Date Recorded PHQ-2 Score 2 04/28/2021 [facility] of Occupat ional Health - Occupational Stress [...] place to sleep or slept in a custodial (including now)? No 04/28/2021 Nutrition Answer Date [...] PM CDT Legal Sex Male 9:30 AM CONDITIONING ROOM WORKER Gender Identity Male 09/05/2017 2:01 PM CDT Sexual Orientation Straight 09/05/2017 2: 01 PM CDT documented as of this encounter Miscellaneous Notes * Telephone Encounter - Mary Butcher M.S.N., R.N. - 03/31/2024 11:20 AM CONDITIONING ROOM WORKER Prescription Renewal Request Medication: eszopiclone (Lunesta) 3 mg tablet Indication: insomnia (G47.00) HISTORY OF PRESENT ILLNESS Date of last visit: 07/18/2023, Provider: Poly Galindo M.D. Next visit: ordered but not yet scheduled; due 06/2024 , can be virtual or in person Prescription request matches current plan of care. Date of last prescription renewal: 10/01/2023 ASSESSMENT/PLAN Prescription pended for prescriber review. ITIONING ROOM WORKER documented in this encounter Plan of Treatment Not on file documented as of this encounter Visit Diagnoses Diagnosis Chronic Insomnia Disorder- Primary documented in this encounter Additional Health Concerns Assessment Noted Time PHQ-9 Depression Total Score: 3 07/01/19 17 3:28 PM CDT documented as of this encounter Care Teams Video Tape Duplicator Relationship Specialty Start Date End Date Elsewhere, Pcp PCP - General Internal Medicine 02/04/21 documented as of this encounter
[2024-04-12 17:44] LABS: Chloride* 90 mmol/L (96-114)
[2024-04-12 17:45] LABS: Potassium* 4.4 mmol/L (3.6-5.1)
[2024-04-12 17:47] LABS: Anion Gap 12 mEq/L (7-15); Carbon Dioxide* 20 mmol/L (20-32); Creatinine* 0.5 mg/dL (0.5-1.5); Est. Creatinine Clearance* 57.12; Estimated Glomerular Filt Rate 99 ml/min
[2024-04-12 17:48] LABS: Blood Urea Nitrogen* 12 mg/dL (7-30); Calcium* 9.3 mg/dL (8.4-10.6); Glucose* 116 mg/dL (60-115)
[2024-04-12 17:52] LABS: Sodium* 122 mmol/L (135-149)
[2024-04-12 18:02] LABS: Appearance Urine Clear (Clear); Bilirubin Urine Negative (Negative); Blood Urine Negative (Negative); Color Urine Yellow (Yellow); Glucose Urine Negative (Negative); Ketones Urine Negative (Negative); Leukocyte Esterase Urine Negative (Negative); Nitrite Urine Negative (Negative); Protein Urine 1+ (Negative); Urobilinogen Urine 0.2 (0.2-1.0)
[2024-04-12 18:04] LABS: Mucus Urine Few; RBC Urine 0-2 (0-2); Squamous Epithelial Cell Urine Few (None-Few); WBC Urine 0-2 (0-5)
[2024-04-12] MEDS: 0.9 % SODIUM CHLORIDE 1000 ml 1,000 ML IV (18:13)
--- NOTE | 2024-04-12 18:31 | PM.IMHP1 ---
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 Patient complains of stiffness and some weakness worse than usual today. Reports feeling rather normal yesterday. Did not sleep well overnight as he started a new sleeping pill, sonata, rather than his usual Lunesta which has worked for years. Tells me he has felt quite unsafe today with his degree of stiffness. His was really not able to help him at all. Was concerned he was may be hydrated so drink more water than usual today normal fluid intake is may be 50 oz a day. He may have had 2-4 bottles of water in addition to this today. Has had a headache today, no worse than usual for him. Denies dizziness. No recent fevers. Denies chest pain or tightness. Denies abdominal pain. No nausea vomiting or diarrhea. Last normal bowel movement was today. No UTI symptoms. This evening now has had increased urge to urinate with intermittent difficulty. Last urine output on arrival to the floor is recorded as 500 mL with < 150 residual. Has had some recent medication changes. Did not like sonata so plans to continue with lunesta. Has been on lisinopril without HCTZ. Started Torsemide. Has started sertraline. Gabapentin dose was decreased. Patient isn't sure of the time frame when asked. Patient was admitted to this hospital 02/29/2024-03/04/2024 for acute NSTEMI. Sodium at that time was 125-128. From hospital, went to [facility]. Has been home for approximately 10 days. Nonsmoker. Gave up alcohol years ago. Mobility mostly limited to wheelchair and walking very short distances with walker. PCP is Dr. Elaine. Review of Systems Narrative: REVIEW OF SYSTEMS: Complete review of systems performed and negative unless otherwise stated in HPI or below. PFSH PFS Medical History Sore throat ?J02.9 - Acute pharyngitis, unspecified (ICD-10) Abdominal pain ?R10.9 - Unspecified abdominal pain (ICD-10) Right shoulder pain ?M25.511 - Pain in right shoulder (ICD-10) Musculoskeletal immobility ?Z74.09 - Other reduced mobility (ICD-10) Non-STEMI (non-ST elevated myocardial infarction) ?I21.4 - Non-ST elevation (NSTEMI) myocardial infarction (ICD-10) Spinal stenosis at L4-L5 level ?M48.061 - Spinal stenosis, lumbar region without neurogenic claudication (ICD-10) Bilateral inguinal hernia ?K40.20 - Bilateral inguinal hernia, without obstruction or gangrene, not specified as recurrent (ICD-10) ED (erectile dysfunction) ?N52.9 - Male erectile dysfunction, unspecified (ICD-10) Hyperlipidemia, unspecified ?E78.5 - Hyperlipidemia, unspecified (ICD-10) Incomplete emptying of bladder ?R33.9 - Retention of urine, unspecified (ICD-10) Muscular atrophy ?M62.50 - Muscle wasting and atrophy, not elsewhere classified, unspecified site (ICD-10) Major depressive disorder ?F32.9 - Major depressive disorder, single episode, unspecified (ICD-10) GERD (gastroesophageal reflux disease) ?K21.9 - Gastro-esophageal reflux disease without esophagitis (ICD-10) Insomnia ?G47.00 - Insomnia, unspecified (ICD-10) Neuropathy, peripheral ?G62.9 - Polyneuropathy, unspecified (ICD-10) Left foot drop ?M21.372 - Foot drop, left foot (ICD-10) Neuropathy ?G62.9 - Polyneuropathy, unspecified (ICD-10) DM (diabetes mellitus), type 2 ?E11.9 - Type 2 diabetes mellitus without complications (ICD-10) Hypertension ?I10 - Essential (primary) hypertension (ICD-10) Surgical History H/O right wrist surgery ?Z98.890 - Other specified postprocedural states (ICD-10) S/P TURP (transurethral resection of prostate) ?Z90.79 - Acquired absence of other genital organ(s) (ICD-10) History of colectomy ?Z90.49 - Acquired absence of other specified parts of digestive tract (ICD-10) History of cataract removal with insertion of prosthetic lens ?Z98.49 - Cataract extraction status, unspecified eye (ICD-10) ?Z96.1 - Presence of intraocular lens (ICD-10) History of hammertoe correction ?Z98.890 - Other specified postprocedural states (ICD-10) ?Z87.39 - Personal history of other diseases of the musculoskeletal system and connective tissue (ICD-10) Family History Brother Diabetes Heart disease Multiple sclerosis Sister Cancer of kidney Father Alcohol dependence Alzheimers disease Social History Narrative: He lives at [facility] on the [place] with his , Honey. Honey is healthcare power of bagel maker. DNR. Remote history of smoking, 55 years ago. Rarely drinks alcohol. Primarily wheelchair-bound with difficulties with bed to chair transfer. What is your current living situation?: I presently have a place to live Problems where you live: no known problems Problems where you live details: N/A In the past 12 months, utilities in danger of being shut off: no In past 12 months, lack of transportation kept you from medical appts, meetings, work, or getting things needed for daily living: no In the past 12 mos, have been you worried that your food would run out before you had money to buy more?: never true In the past 12 mos, the food you bought just didn't last and you didn't have money to buy more?: never true Highest level of school completed/degree received: Doctoral degree Smoking Status: Former smoker What tobacco products do you use: cigarettes Smoking quit date/years: >15 years ago Do you use any of these nicotine containing products: None Second hand tobacco smoke exposure: Yes How often do you have a drink containing alcohol: 2-4 times a month How many standard drinks containing alcohol do you have on a typical day: 1 or 2 How often do you have six or more drinks on one occasion: Never AUDIT-C Alcohol total score: 2 Non-prescribed substance use: denies use Caffeine: Yes How often does anyone, including family, friends and others, physically hurt you: never How often does anyone, including family, friends and others, insult or talk down to you: never How often does anyone, including family, friends and others, threaten you with harm: never How often does anyone, including family, friends and others, scream or curse at you: never service: No Meds Home Medications and Allergies Home Medications ?Medication ?Instructions ?Recorded ?Confirmed ?Type metformin 500 mg tablet,extended 1,000 mg PO BID 10/29/21 03/26/24 History release 24 hr gabapentin 300 mg capsule 600 mg PO BID@,14 11/04/21 03/26/24 History (Neurontin) multivitamin 1 tab PO DAILY 11/04/21 03/26/24 History omeprazole 20 mg capsule,delayed 20 mg PO DAILY 11/04/21 03/26/24 History release cholecalciferol (vitamin D3) 25 25 mcg PO DAILY 02/29/24 03/26/24 History mcg (1,000 unit) tablet gabapentin 300 mg capsule 1,200 mg PO HS 02/29/24 03/26/24 History methocarbamol 750 mg tablet 750 mg PO TID PRN muscle spasm 02/29/24 03/26/24 History sertraline 100 mg tablet 100 mg PO DAILY 04/12/24 04/12/24 History zaleplon 10 mg capsule 10 mg PO QPM PRN insomnia 04/12/24 04/12/24 History Allergies Allergy/AdvReac Type Severity Reaction Status Date / Time duloxetine Allergy emotional Verified 03/26/24 09:36 irritability metronidazole Allergy severe GI Verified 03/26/24 09:36 irritability trazodone Allergy Anxiety Verified 03/26/24 09:36 Exam Narrative: Exam Narrative: PHYSICAL EXAM General: Pleasant, conversant, NAD HEENT: Normocephalic, atraumatic, sclera white, EOMI, oral mucosa moist Cardiovascular: RRR, S1S2. Trace pitting edema Pulmonary: CTA bilaterally without rhonchi, rales, expiratory wheezes. No dyspnea on room air Abdominal: Soft, nondistended, NTTP Neurological: Alert, answering questions appropriately, cranial nerves intact, no focal findings Extremities: No gross joint deformity or swelling. AROMI. Neurovascularly intact Skin: Warm, dry. Const: Vital Signs, click to edit/add: Vital Signs - 24 hr 04/12/24 16:28 04/12/24 16:30 04/12/24 16:30 Temperature 97.4 F L Pulse Rate 70 68 Pulse Rate [Pulse Oximeter] 72 Respiratory Rate 18 Blood Pressure 196/96 H Blood Pressure [Ri ght Upper Arm] 196/96 H Pulse Oximetry 95 95 95 Oxygen Delivery Me thod Room Air 04/12/24 16:31 04/12/24 16:45 04/12/24 17:00 Temperature Pulse Rate 62 84 63 Pulse Rate [Pulse Oximeter] Respiratory Rate 13 4 L Blood Pressure Blood Pressure [Ri ght Upper Arm] Pulse Oximetry 96 96 96 Oxygen Delivery Me thod 04/12/24 17:08 04/12/24 17:15 04/12/24 17:30 Temperature Pulse Rate 73 63 67 Pulse Rate [Pulse Oximeter] Respiratory Rate 8 L 12 9 L Blood Pressure 194/108 H Blood Pressure [Ri ght Upper Arm] Pulse Oximetry 95 95 94 Oxygen Delivery Me thod 04/12/24 17:32 04/12/24 17:45 04/12/24 18:00 Temperature Pulse Rate 62 61 65 Pulse Rate [Pulse Oximeter] Respiratory Rate 13 19 12 Blood Pressure 158/85 H Blood Pressure [Ri ght Upper Arm] Pulse Oximetry 94 93 95 Oxygen Delivery Me thod 04/12/24 18:02 Temperature Pulse Rate 64 Pulse Rate [Pulse Oximeter] Respiratory Rate 24 Blood Pressure 171/95 H Blood Pressure [Ri ght Upper Arm] Pulse Oximetry 93 Oxygen Delivery Me od Hospitalist - H&P: Result Labs Labs: Short CBC 04/12/24 Range/Units 17:22 WBC 6.64 (4.50-11.00) K/uL Hgb 12.3 L (13.5-17.5) gm/dL Hct 36.5 L (37.0-53.0) % Plt Count 214 (140-440) K/uL BMP 04/12/24 17:22 Sodium 122 L* Potassium 4.4 Chloride 90 L Carbon Dioxide 20 BUN 12 Creatinine 0.5 Glucose 116 H Calcium 9.3 Urine 04/12/24 Range/Units 17:55 Urine Color Yellow (Yellow) Urine Appearance Clear (Clear) Urine pH 8.0 (5.0-8.5) Ur Specific [place] 1.020 (1.000-1.030) Urine Protein 1+ A (Negative) Urine Glucose (UA) Negative (Negative) ECG Attestation: I personally reviewed and interpreted this ECG as follows: ECG interpretation date: 04/12/24 Interpretation: Sinus rhythm, first-degree block, ventricular rate 68, QTC 421 Assessment and Plan Assessment and plan (1) Hyponatremia: Problem comment: Currently 122. Previously 125-128 during hospital stay in February. 134 as of a few days ago Does not appear to be significantly fluid overloaded, could have been hypovolemic, has had recent medication changes Received 1 L normal saline in ED - recheck sodium on arrival to floor -> 125. Will hold off on hypertonic 3% and recheck at 11:00pm Fluid restriction 1500 mL Urine sodium ordered, checking availability of FeNA, urine/serum osmolarity Hold lisinopril and torsemide Status: Acute (2) Hypertension: Problem comment: Continue metoprolol. Hold lisinopril. Did not take his morning medications Status: Chronic (3) DM (diabetes mellitus), type 2: Problem comment: Most recent A1c 6.3. Hold metformin for now. Morning glucose Status: Chronic (4) Hyperlipidemia, unspecified: Problem comment: Continue statin Status: Chronic (5) Musculoskeletal immobility: Problem comment: Chronic, acutely worsened. Patient has disabling immobility. This is his most important and troubling health problem. Historically this is been suspected to be related to his spinal stenosis and peripheral neuropathy. -Increased stiffness over last 24 hours. No obvious infectious etiology, afebrile, no leukocytosis, UA unremarkable, triple swab negative. Is hyponatremic. Magnesium 1.7 - will supplement with 2 g IV. Gabapentin dose was recently decreased. Status: Chronic (6) Neuropathy: Problem comment: Chronic. Moderately severe and disabling. Developed prior to the diagnosis of diabetes. Status: Chronic (7) Spinal stenosis at L4-L5 level: Problem comment: Chronic. Moderately severe and disabling Status: Chronic (8) Insomnia: Problem comment: Chronic, will continue on home dose of Lunesta as did not care for sonata Status: Chronic Total Time Spent Total Time Spent: Today I spent 75 minutes seeing the patient, discussing the patient with ER staff, reviewing Expanse and Epic notes/diagnostics, discussing the care plan with our team that includes social work, PT/OT, pharmacy, RT, fdc and documenting my impressions and plan in the medical record.
[2024-04-12 19:21] LABS: Magnesium* 1.7 mg/dL (1.5-2.6)
--- NOTE | 2024-04-12 19:48 | PC.NURSE ---
End of Shift: Patient arrive to floor about 1830. Patient pleasant and cooperative, hypertensive, but vitally stable. Admission complete, and hand off given to next RN. Patient stood to side of bed with walker and two assist to use urinal.
[2024-04-12 20:09] LABS: Sodium Urine Random* 60
[2024-04-12] MEDS: GABAPENTIN 300 MG CAPSULE 900 MG PO (20:39)
[2024-04-12] MEDS: ENOXAPARIN 40 MG/0.4 ML INJ SUBCUT (20:40)
[2024-04-12 20:48] LABS: Sodium* 125 mmol/L (135-149)
[2024-04-12] MEDS: SODIUM CHLORIDE 0.9 % (FLUSH) 10 ML SYRINGE 5 ML IVF (21:11)
[2024-04-12] MEDS: MAGNESIUM IV 2 GM/50 ML PIGGYBACK IVPB (21:11)
[2024-04-13] VITALS (8 sets, daily range): BP systolic 131–168; BP diastolic 66–98; PULSE 49–72; RESP 14–18; TEMP 36.5–36.7; O2SAT 94–96
[2024-04-13 00:11] LABS: Sodium* 127 mmol/L (135-149)
[2024-04-13 02:44] LABS: Sodium* 128 mmol/L (135-149)
[2024-04-13 06:33] LABS: Hematocrit 34.6 % (37.0-53.0); Hemoglobin* 11.7 gm/dL (13.5-17.5); Mean Corpuscular HGB Conc 34 gm/dL (32-36); Mean Corpuscular Hemoglobin 27 pg (26-34); Mean Corpuscular Volume 81 fL (80-100); Platelet Count* 239 K/uL (140-440); Red Blood Count 4.29 m/uL (4.30-5.90); White Blood Count* 5.74 K/uL (4.50-11.00)
[2024-04-13 06:55] LABS: Chloride* 96 mmol/L (96-114); Potassium* 3.6 mmol/L (3.6-5.1); Sodium* 129 mmol/L (135-149)
[2024-04-13 06:58] LABS: Anion Gap 10 mEq/L (7-15); Blood Urea Nitrogen* 8 mg/dL (7-30); Calcium* 8.9 mg/dL (8.4-10.6); Carbon Dioxide* 23 mmol/L (20-32); Creatinine* 0.6 mg/dL (0.5-1.5); Est. Creatinine Clearance* 57.12; Estimated Glomerular Filt Rate 93 ml/min; Glucose* 112 mg/dL (60-115)
[2024-04-13 07:07] LABS: Slide Review Reflex No
--- NOTE | 2024-04-13 07:25 | PC.NURSE ---
End of shift [id number] - Pt alert, oriented, cooperative. Up at side of bed with walker/gait belt and x1 assist at start of shift, transitioned to standby assistance with walker/gait belt by end of shift. Able to use urinal at bedside with standby assistance. Tolerating RA and fluid restriction. Pt reported generalized pain, pt repositioned and room environment changes made to improve pt comfort. Pt observed to sleep. Appears to be resting comfortably in bed at end of shift with call light within reach.
[2024-04-13] MEDS: SODIUM CHLORIDE 0.9 % (FLUSH) 10 ML SYRINGE 5 ML IVF ×2 (08:36→23:00)
[2024-04-13] MEDS: DESMOPRESSIN ACETATE 4 MCG/ML inj 2 MCG IVP (08:36)
[2024-04-13] MEDS: ROSUVASTATIN CALCIUM 10 MG TABLET 40 MG PO (08:38)
[2024-04-13] MEDS: METOPROLOL SUCCINATE (XL) 25 MG TAB PO (08:38)
[2024-04-13] MEDS: GABAPENTIN 300 MG CAPSULE 600 MG PO ×2 (08:38→13:51)
[2024-04-13] MEDS: OMEPRAZOLE 20 MG CAPSULE DR PO (08:38)
[2024-04-13] MEDS: ASPIRIN 81 MG TABLET EC PO (08:39)
[2024-04-13] MEDS: SERTRALINE 100 MG TABLET PO (08:39)
[2024-04-13 11:03] LABS: Troponin I* < 0.01 ng/mL (0.01-0.04)
[2024-04-13 11:45] LABS: Sodium* 129 mmol/L (135-149)
[2024-04-13 12:03] LABS: Troponin I* < 0.01 ng/mL (0.01-0.04)
--- NOTE | 2024-04-13 16:13 | PM.IMPN1 ---
Progress Note: A&P Assessment and plan (1) Hyponatremia: Problem details: Currently 122. Previously 125-128 during hospital stay in February. 134 as of a few days ago Does not appear to be significantly fluid overloaded, could have been hypovolemic, has had recent medication changes Received 1 L normal saline in ED - recheck sodium on arrival to floor -> 125. Will hold off on hypertonic 3% and recheck at 11:00pm Fluid restriction 1500 mL Urine sodium ordered, checking availability of FeNA, urine/serum osmolarity Hold lisinopril and torsemide - 04/13/24 Na 129 this am, which is a fast correction. Gave DDAVP with a steady sodium of 129 now. Continue fluid restriction and holding diuretics Status: Acute (2) Hypertension: Problem details: Continue metoprolol. Hold lisinopril. Status: Chronic (3) DM (diabetes mellitus), type 2: Problem details: Most recent A1c 6.3. Hold metformin for now. Morning glucose is 112. Will hold off on ISS. Monitor Status: Chronic (4) Hyperlipidemia, unspecified: Problem details: Continue statin Status: Chronic (5) Musculoskeletal immobility: Problem details: Chronic, acutely worsened. Patient has disabling immobility. This is his most important and troubling health problem. Historically this is been suspected to be related to his spinal stenosis and peripheral neuropathy. -Increased stiffness over last 24 hours. No obvious infectious etiology, afebrile, no leukocytosis, UA unremarkable, triple swab negative. Is hyponatremic. Magnesium 1.7 - will supplement with 2 g IV. Gabapentin dose was recently decreased. - PT and OT consults Status: Chronic (6) Neuropathy: Problem details: Chronic. Moderately severe and disabling. Developed prior to the diagnosis of diabetes. 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 Moderately severe and disabling Status: Chronic (8) Insomnia: Problem details: Chronic, will continue on home dose of Lunesta as did not care for sonata Status: Chronic (9) Dyspnea: Problem details: - Brief, resolved, h/o CAD and MT, h/o anxiety, suspect anxiety Status: Acute Time Spent With Patient Total time spent: Today I spent 60 minutes seeing the patient, reviewing Expanse and EPIC notes/diagnostics/labs, discussing the care plan with our care team that includes social work, PT/OT, pharmacy, RT, long term and documenting my impressions and plan in the medical record. Subjective Time Seen by Provider: 09:57 Date Seen: 04/13/24 Interval history: Mahesh woke from a nap this morning and felt SOB. He describes it as a feeling similar to when he had a heart attack in early February. He denies CP, noting that he didn't have any with his MT either. His symptoms resolved without intervention after about 5 minutes. I immediately called nursing staff and we obtained labs, EKG, and CXR, which are unremarkable. Exam Narrative: Exam Narrative: General: Appears dyspneic. This resolved while I was in the room. Awake, alert, oriented x3. No pallor. No jaundice. Oropharynx: Clear. Mucous membranes moist. Cardiovascular: Regular rate and rhythm. No murmurs, gallops, or rubs. Respiratory: Initially dyspneic. No tachypnea. Clear to auscultation bilaterally, no crackles or wheezes. Abdomen: Bowel sounds present. Soft, nondistended, nontender. Extremities: No lower extremity edema. Const: Vital Signs, click to edit/add: Vital Signs - 24 hr 04/12/24 16:28 04/12/24 16:30 04/12/24 16:30 Temperature 97.4 F L Pulse Rate 70 68 Pulse Rate [Pulse Oximeter] 72 Respiratory Rate 18 Blood Pressure 196/96 H Blood Pressure [Le ft Arm] Blood Pressure [Ri ght Arm] Blood Pressure [Ri ght Upper Arm] 196/96 H Pulse Oximetry 95 95 95 Oxygen Delivery Me thod Room Air 04/12/24 16:31 04/12/24 16:45 04/12/24 17:00 Temperature Pulse Rate 62 84 63 Pulse Rate [Pulse Oximeter] Respiratory Rate 13 4 L Blood Pressure Blood Pressure [Le ft Arm] Blood Pressure [Ri ght Arm] Blood Pressure [Ri ght Upper Arm] Pulse Oximetry 96 96 96 Oxygen Delivery Me thod 04/12/24 17:08 04/12/24 17:15 04/12/24 17:30 Temperature Pulse Rate 73 63 67 Pulse Rate [Pulse Oximeter] Respiratory Rate 8 L 12 9 L Blood Pressure 194/108 H Blood Pressure [Le ft Arm] Blood Pressure [Ri ght Arm] Blood Pressure [Ri ght Upper Arm] Pulse Oximetry 95 95 94 Oxygen Delivery Me thod 04/12/24 17:32 02/15/25 17:45 04/12/24 18:00 Temperature Pulse Rate 62 61 65 Pulse Rate [Pulse Oximeter] Respiratory Rate 13 19 12 Blood Pressure 158/85 H Blood Pressure [Le ft Arm] Blood Pressure [Ri ght Arm] Blood Pressure [Ri ght Upper Arm] Pulse Oximetry 94 93 95 Oxygen Delivery Me thod 04/12/24 18:02 04/12/24 18:33 04/12/24 18:38 Temperature 97.6 F Pulse Rate 64 Pulse Rate [Pulse Oximeter] 74 Respiratory Rate 24 16 18 Blood Pressure 171/95 H Blood Pressure [Le ft Arm] Blood Pressure [Ri ght Arm] 216/108 H Blood Pressure [Ri ght Upper Arm] Pulse Oximetry 93 94 93 Oxygen Delivery Me thod Room Air Room Air 04/12/24 19:00 04/12/24 19:46 04/12/24 23:00 Temperature 97.6 F Pulse Rate 71 Pulse Rate [Pulse Oximeter] 65 Respiratory Rate 16 Blood Pressure Blood Pressure [Le ft Arm] Blood Pressure [Ri ght Arm] 136/74 Blood Pressure [Ri ght Upper Arm] Pulse Oximetry 94 93 Oxygen Delivery Me thod Room Air Room Air 04/12/24 23:00 04/13/24 02:44 04/13/24 07:00 Temperature 97.8 F Pulse Rate 70 Pulse Rate [Pulse Oximeter] 75 68 Respiratory Rate 16 16 Blood Pressure Blood Pressure [Le ft Arm] Blood Pressure [Ri ght Arm] 159/84 H 168/98 H Blood Pressure [Ri ght Upper Arm] Pulse Oximetry 94 96 Oxygen Delivery Me thod Room Air Room Air 04/13/24 08:41 04/13/24 08:41 04/13/24 10:02 Temperature 98.1 F Pulse Rate Pulse Rate [Pulse Oximeter] 72 72 62 Respiratory Rate 14 14 18 Blood Pressure Blood Pressure [Le ft Arm] 154/80 H Blood Pressure [Ri ght Arm] 131/72 Blood Pressure [Ri ght Upper Arm] Pulse Oximetry 94 95 Oxygen Delivery Me thod Room Air Room Air 04/13/24 11:04 04/13/24 15:17 04/13/24 15:17 Temperature 97.7 F 98 F Pulse Rate Pulse Rate [Pulse Oximeter] 66 49 L 49 L Respiratory Rate 14 18 18 Blood Pressure Blood Pressure [Le ft Arm] 147/76 H 131/66 Blood Pressure [Ri ght Arm] Blood Pressure [Ri ght Upper Arm] Pulse Oximetry 95 94 Oxygen Delivery Me thod Room Air Room Air Labs Labs: Laboratory Results - last 24 hr 04/12/24 04/12/24 04/12/24 16:33 17:22 17:55 WBC 6.64 RBC 4.52 Hgb 12.3 L Hct 36.5 L MCV 81 MCH 27 MCHC 34 RDW Coeff of Tamir 13.1 Plt Count 214 Neut % (Auto) 69.8 Lymph % (Auto) 21.8 [place] % (Auto) 8.0 Eos % (Auto) 0.2 Baso % (Auto) 0.0 Neut # (Auto) 4.64 Lymph # (Auto) 1.45 [place]ton # (Auto) 0.50 Eos # (Auto) 0.01 Baso # (Auto) 0.00 Abs Immat Gran (auto) 0.01 Imm/Tot Granulo (auto) 0.2 Sodium 122 L* 125 L Potassium 4.4 Chloride 90 L Carbon Dioxide 20 Anion Gap 12 BUN 12 Creatinine 0.5 Estimated Creat Clear 57.12 Estimated GFR 99 Glucose 116 H Calcium 9.3 Magnesium 1.7 Troponin I Urine Color Yellow Urine Appearance Clear Urine pH 8.0 Ur Specific [place] 1.020 Urine Protein 1+ A Urine Glucose (UA) Negative Urine Ketones Negative Urine Blood Negative Urine Nitrite Negative Urine Bilirubin Negative Urine Urobilinogen 0.2 Ur Leukocyte Esterase Negative Urine RBC 0-2 Urine WBC 0-2 Ur Squamous Epith Cells Few Urine Bacteria None Urine Mucus Few A Ur Random Sodium 60 SARS-CoV-2 (PCR) Negative SARS-CoV-2 Influenza Type A (PCR) Negative PCR FLU A Influenza Type B (PCR) Negative PCR FLU B RSV (PCR) Negative PCR RSV Lab Acknowledgement 04/12/24 04/12/24 04/13/24 18:57 23:45 02:25 WBC RBC Hgb Hct MCV MCH MCHC RDW Coeff of Tamir Plt Count Neut % (Auto) Lymph % (Auto) [place] % (Auto) Eos % (Auto) Baso % (Auto) Neut # (Auto) Lymph # (Auto) [place] # (Auto) Eos # (Auto) Baso # (Auto) Abs Immat Gran (auto) Imm/Tot Granulo (auto) Sodium 127 L 128 L Potassium Chloride Carbon Dioxide Anion Gap BUN Creatinine Estimated Creat Clear Estimated GFR Glucose Calcium Magnesium Troponin I Urine Color Urine Appearance Urine pH Ur Specific [place] Urine Protein Urine Glucose (UA) Urine Ketones Urine Blood Urine Nitrite Urine Bilirubin Urine Urobilinogen Ur Leukocyte Esterase Urine RBC Urine WBC Ur Squamous Epith Cells Urine Bacteria Urine Mucus Ur Random Sodium SARS-CoV-2 (PCR) Influenza Type A (PCR) Influenza Type B (PCR) RSV (PCR) Lab Acknowledgement Test Added 04/13/24 04/13/24 04/13/24 05:35 10:12 11:28 WBC 5.74 RBC 4.29 L Hgb 11.7 L Hct 34.6 L MCV 81 MCH 27 MCHC 34 RDW Coeff of Tamir Plt Count 239 Neut % (Auto) Lymph % (Auto) [place] % (Auto) Eos % (Auto) Baso % (Auto) Neut # (Auto) Lymph # (Auto) [place] # (Auto) Eos # (Auto) Baso # (Auto) Abs Immat Gran (auto) Imm/Tot Granulo (auto) Sodium 129 L 129 L Potassium 3.6 Chloride 96 Carbon Dioxide 23 Anion Gap 10 BUN 8 Creatinine 0.6 Estimated Creat Clear 57.12 Estimated GFR 93 Glucose 112 Calcium 8.9 Magnesium 2.0 Troponin I < 0.01 L < 0.01 L Urine Color Urine Appearance Urine pH Ur Specific [place] Urine Protein Urine Glucose (UA) Urine Ketones Urine Blood Urine Nitrite Urine Bilirubin Urine Urobilinogen Ur Leukocyte Esterase Urine RBC Urine WBC Ur Squamous Epith Cells Urine Bacteria Urine Mucus Ur Random Sodium SARS-CoV-2 (PCR) Influenza Type A (PCR) Influenza Type B (PCR) RSV (PCR) Lab Acknowledgement 04/13/2024 EKG: Sinus rhythm with first-degree AV block, 63 beats per minute, otherwise normal EKG. Ordering Physician: Rosa Blackburn M.D. Date of Service: 04/13/24 Procedure(s): XR chest 1V portable Accession Number(s): [id number] cc: Rosa Blackburn M.D.; Zachariah Elaine M.D.~ For Patients: As a result of the Cures Act, medical imaging exams and procedure reports are released immediately into your electronic medical record. You may view this report before your referring provider. If you have questions, please contact your health care provider. INDICATION: Shortness of breath TECHNIQUE: Chest 1 views. COMPARISON: Chest radiograph 02/29/2024 FINDINGS: Cardiovasculature and mediastinum: Heart size is normal. Unremarkable mediastinum. Lungs and pleural spaces: Lungs are clear. No pneumothorax or pleural effusion. Bones and soft tissues: No significant findings. IMPRESSION: No acute findings. Dictated by Sherine Taylor MD @ 04/13/2024 11:17:51 AM (Electronically Signed)
--- NOTE | 2024-04-13 17:31 | PC.NURSE ---
End of Shift: Patient pleasant and cooperative. Patient vitally stable, lungs clear, BS WNL, IV SL and intact. Patient reports having his normal generalized discomfort, patient declined tylenol. Patient 1 assist/walker. Patient tolerating regular diet, up in chair majority of day. Urinating well and had 1 BM. Tele=NS w/ 1st degree HB.
[2024-04-13] MEDS: GABAPENTIN 300 MG CAPSULE 900 MG PO (20:35)
[2024-04-13 20:45] LABS: Sodium* 128 mmol/L (135-149)
[2024-04-14 00:12] VITALS: BP 181/96; PULSE 71; RESP 18; TEMP 36.4; O2SAT 95
[2024-04-14 01:07] VITALS: PULSE 63
[2024-04-14 03:34] VITALS: BP 158/93; PULSE 65; RESP 18; O2SAT 95
[2024-04-14 06:25] LABS: Hematocrit 34.7 % (37.0-53.0); Hemoglobin* 11.7 gm/dL (13.5-17.5); Mean Corpuscular HGB Conc 34 gm/dL (32-36); Mean Corpuscular Hemoglobin 27 pg (26-34); Mean Corpuscular Volume 81 fL (80-100); Platelet Count* 223 K/uL (140-440); Red Blood Count 4.28 m/uL (4.30-5.90); White Blood Count* 6.95 K/uL (4.50-11.00)
[2024-04-14 06:28] LABS: Slide Review Reflex No
[2024-04-14 06:51] LABS: Chloride* 95 mmol/L (96-114); Sodium* 129 mmol/L (135-149)
[2024-04-14 06:53] LABS: Creatinine* 0.6 mg/dL (0.5-1.5); Est. Creatinine Clearance* 57.12; Estimated Glomerular Filt Rate 93 ml/min
[2024-04-14 06:54] LABS: Anion Gap 9 mEq/L (7-15); Blood Urea Nitrogen* 13 mg/dL (7-30); Calcium* 8.9 mg/dL (8.4-10.6); Carbon Dioxide* 25 mmol/L (20-32); Glucose* 110 mg/dL (60-115)
[2024-04-14 07:00] VITALS: BP 143/73; PULSE 71; RESP 16; TEMP 36.7; O2SAT 95
--- NOTE | 2024-04-14 07:53 | PC.NURSE ---
End of shift [id number] ? Pt alert, oriented, cooperative. Up with standby assistance and walker/gait belt. Pt able to ambulate to bathroom with standby assistance, also used urinal at bedside PRN. Tolerating RA and fluid restriction. Denies SOB and pain. Pt observed to sleep, appears to be resting comfortably in bed at end of shift.
[2024-04-14] MEDS: ROSUVASTATIN CALCIUM 10 MG TABLET 40 MG PO (08:51)
[2024-04-14] MEDS: GABAPENTIN 300 MG CAPSULE 600 MG PO ×2 (08:52→14:03)
[2024-04-14] MEDS: SERTRALINE 100 MG TABLET PO (08:52)
[2024-04-14] MEDS: METOPROLOL SUCCINATE (XL) 25 MG TAB PO (08:52)
[2024-04-14] MEDS: SODIUM CHLORIDE 0.9 % (FLUSH) 10 ML SYRINGE 5 ML IVF (09:43)
[2024-04-14] MEDS: OMEPRAZOLE 20 MG CAPSULE DR PO (09:43)
[2024-04-14 10:00] VITALS: PULSE 68
[2024-04-14 11:00] VITALS: BP 124/64; PULSE 65; RESP 18; TEMP 36.4; O2SAT 95
[2024-04-14] MEDS: ACETAMINOPHEN 325 MG TABLET PO (11:23)
--- NOTE | 2024-04-14 13:26 | PM.DS1 ---
DS: Providers Provider Time Seen by Provider: 10:50 Date Seen: 04/14/24 Date of admission: 04/12/24 18:57 Primary care physician: Zachariah Elaine MD Admitting Clinician: Rachel Devries PA-C Consults: 04/12/24 18:57 Consult to Occupational Therapy [CONS] Routine Comment: Reason(s) for OT Consult:: Evaluate and Treat Any Restrictions?:: No Restrictions Consult to Physical Therapy [CONS] Routine Comment: Reason(s) for PT Consult:: Evaluate and Treat Any Restrictions?:: No Restrictions Consult to [facility] [CONS] Routine Comment: Reason for Consult:: Social Service Consult Attending Physician on discharge: Rosa Blackburn MD Date of Discharge: 04/14/24 DS: Diagnosis Discharge Diagnosis (1) Hyponatremia: Status: Acute Problem details: Currently 122. Previously 125-128 during hospital stay in February. 134 as of a few days ago Does not appear to be significantly fluid overloaded, could have been hypovolemic, has had recent medication changes Received 1 L normal saline in ED - recheck sodium on arrival to floor -> 125. Will hold off on hypertonic 3% and recheck at 11:00pm Fluid restriction 1500 mL Urine sodium ordered, checking availability of FeNA, urine/serum osmolarity Hold lisinopril and torsemide - 04/13/24 Na 129 this am, which is a fast correction. Gave DDAVP with a steady sodium of 129 now. Continue fluid restriction and holding diuretics - 04/13 Na stable at 129, which is his baseline. Therapies note he has improved and is able to be d/ch'd home safely (2) Hypertension: Status: Chronic Problem details: Continue metoprolol. Restart lisinopril. (3) DM (diabetes mellitus), type 2: Status: Chronic Problem details: Most recent A1c 6.3. Resume metformin (4) Hyperlipidemia, unspecified: Status: Chronic Problem details: Continue statin (5) Musculoskeletal immobility: Status: Chronic Problem details: Chronic, acutely worsened. Patient has disabling immobility. This is his most important and troubling health problem. Historically this is been suspected to be related to his spinal stenosis and peripheral neuropathy. -Increased stiffness over last 24 hours. No obvious infectious etiology, afebrile, no leukocytosis, UA unremarkable, triple swab negative. Is hyponatremic. Magnesium 1.7 - will supplement with 2 g IV. Gabapentin dose was recently decreased. - PT and OT consults complete. D/c home with in home PT and OT. (6) Neuropathy: Status: Chronic Problem details: Chronic. Moderately severe and disabling. Developed prior to the diagnosis of diabetes. 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 Moderately severe and disabling (8) Insomnia: Status: Chronic Problem details: Chronic, will continue on home dose of Lunesta as did not care for sonata (9) Dyspnea: Status: Resolved Problem details: - Brief, resolved, h/o CAD and AK, h/o anxiety, suspect anxiety DS: Summary Hospital Course Hospital Course: Per H&P: Prince Irizarry is a 88 year old male Past medical history significant for hypertension, hyperlipidemia, type 2 diabetes mellitus not insulin dependent, hyponatremia, GERD, MDD, insomnia, history of malignant prostate cancer, incomplete bladder emptying, spinal stenosis with neurogenic claudication at L4-5, severe and disabling neuropathy and stiffness is admitted to the medical floor from the ED with for further management acute on chronic recurrent hyponatremia. Patient complains of stiffness and some weakness worse than usual today. Reports feeling rather normal yesterday. Did not sleep well overnight as he started a new sleeping pill, sonata, rather than his usual Lunesta which has worked for years. Tells me he has felt quite unsafe today with his degree of stiffness. His was really not able to help him at all. Was concerned he was may be hydrated so drink more water than usual today normal fluid intake is may be 50 oz a day. He may have had 2-4 bottles of water in addition to this today. Has had a headache today, no worse than usual for him. Denies dizziness. No recent fevers. Denies chest pain or tightness. Denies abdominal pain. No nausea vomiting or diarrhea. Last normal bowel movement was today. No UTI symptoms. This evening now has had increased urge to urinate with intermittent difficulty. Last urine output on arrival to the floor is recorded as 500 mL with < 150 residual. Has had some recent medication changes. Did not like sonata so plans to continue with lunesta. Has been on lisinopril without HCTZ. Started Torsemide. Has started sertraline. Gabapentin dose was decreased. Patient isn't sure of the time frame when asked. Mahesh's sodium came up at a good rate and stabilized at 129 while on a fluid restriction with torsemide and lisinopril on hold. He had no concerning neurological signs or symptoms. Weakness improved and he is discharged home today in improved condition. Time Spent with Patient Time attestation: Total time spent providing and/or coordinating discharge services: Today I spent 50 minutes discharging the patient, reviewing Expanse and EPIC notes/diagnostics/labs, discussing the care plan with our care team that includes social work, PT/OT, pharmacy, RT, longterm and documenting orders for discharge. Exam Narrative: Exam Narrative: General: No acute distress. Awake, alert, oriented x3. No pallor. No jaundice. Oropharynx: Clear. Mucous membranes moist. Cardiovascular: Regular rate and rhythm. No murmurs, gallops, or rubs. Respiratory: No respiratory distress. Clear to auscultation bilaterally, no crackles or wheezes. Abdomen: Bowel sounds present. Soft, nondistended, nontender. Extremities: No lower extremity edema. Const: Vital Signs, click to edit/add: Vital Signs - 24 hr 04/13/24 15:17 04/13/24 15:17 04/13/24 16:35 Temperature 98 F Pulse Rate 57 L Pulse Rate [Pulse Oximeter] 49 L 49 L Respiratory Rate 18 18 Blood Pressure [Le ft Arm] 131/66 Pulse Oximetry 94 Oxygen Delivery Wa thod Room Air 04/13/24 21:13 04/14/24 00:12 04/14/24 01:07 Temperature 98.0 F 97.5 F L Pulse Rate 63 Pulse Rate [Pulse Oximeter] 64 71 Respiratory Rate 18 18 Blood Pressure [Le ft Arm] 161/87 H 181/96 H Pulse Oximetry 94 [facility] 04/14/24 03:34 04/14/24 07:00 04/14/24 10:00 Temperature 98.1 F Pulse Rate 68 Pulse Rate [Pulse Oximeter] 65 71 Respiratory Rate 18 16 Blood Pressure [Le ft Arm] 158/93 H 143/73 H Pulse Oximetry 95 95 [facility] 04/14/24 11:00 Temperature 97.6 F Pulse Rate Pulse Rate [Pulse Oximeter] 65 Respiratory Rate 18 Blood Pressure [Le ft Arm] 124/64 Pulse Oximetry 95 [facility] DS: Data Data Completed and Pending Completed studies during hospitalization: 04/12/2024 EKG: Sinus rhythm with first-degree AV block, 68 beats per minute. To 1625 EKG: Sinus rhythm with first-degree AV block, 63 beats per minute. Ordering Physician: Rosa Blackburn M.D. Date of Service: 04/13/24 Procedure(s): XR chest 1V portable Accession Number(s): [id number] cc: Rosa Blackburn M.D.; Zachariah Elaine M.D.~ For Patients: As a result of the Cures Act, medical imaging exams and procedure reports are released immediately into your electronic medical record. You may view this report before your referring provider. If you have questions, please contact your health care provider. INDICATION: Shortness of breath TECHNIQUE: Chest 1 views. COMPARISON: Chest radiograph 02/29/2024 FINDINGS: Cardiovasculature and mediastinum: Heart size is normal. Unremarkable mediastinum. Lungs and pleural spaces: Lungs are clear. No pneumothorax or pleural effusion. Bones and soft tissues: No significant findings. IMPRESSION: No acute findings. Dictated by Sherine Taylor MD @ 04/13/2024 11:17:51 AM (Electronically Signed) Labs on day of discharge: Labs from last 24 hours 04/14/24 04/13/24 06:12 20:11 WBC 6.95 RBC 4.28 L Hgb 11.7 L Hct 34.7 L MCV 81 MCH 27 MCHC 34 Plt Count 223 Sodium 129 L 128 L Potassium 4.0 Chloride 95 L Carbon Dioxide 25 Anion Gap 9 BUN 13 Creatinine 0.6 Estimated Creat Clear 57.12 Estimated GFR 93 Glucose 110 Calcium 8.9 Discharge Plan Discharge Disposition: Home, Self-Care Date of Admission: 04/12/24 18:57 Attending Provider on Discharge: Rosa Blackburn Primary Care Provider: Zachariah Elaine Condition: Improved Anticipated Discharge Date/Time: 04/14/24 13:40 Discharge Medications: Continued multivitamin Tablet 1 tab PO DAILY omeprazole 20 mg capsule,delayed release(DR/EC) 20 mg PO DAILY sertraline 100 mg tablet 100 mg PO DAILY zaleplon 10 mg capsule 10 mg PO QPM PRN (Reason: insomnia) acetaminophen 500 mg tablet 1,000 mg PO Q6H PRN gabapentin 300 mg capsule 600 mg PO BID@,14 gabapentin 300 mg capsule 900 mg PO HS rosuvastatin 40 mg tablet 40 mg PO HS metformin 500 mg tablet extended release 24 hr 1,000 mg PO BID methocarbamol 750 mg tablet 750 mg PO TID PRN (Reason: muscle spasm) cholecalciferol (vitamin D3) 25 mcg (1,000 unit) tablet 25 mcg PO DAILY metoprolol succinate 25 mg Tablet Extended Release 24 Hr 25 mg PO DAILY Qty: 30 0RF torsemide 5 mg Tablet 5 mg PO DAILY@0800 Qty: 30 0RF lisinopril 10 mg tablet 10 mg PO DAILY Qty: 30 2RF Discharge Orders: Discharge Order (Routine); Ordered 04/14/24 Ordered By: Rosa Blackburn Activity Level: No Restrictions Discharge Diet: Regular and 2000 ml Fluid Restriction Follow Up Appointments: Zachariah Elaine MD [Primary Care Provider] - (bmp 5-7 days) Forms: MyHealth Info Instructions
--- NOTE | 2024-04-14 13:57 | PC.SOCIAL ---
Discharge planning: Met with pt regarding d/c plan. [place] [facility] [address]. He will be returning there at discharge and has home care through [facility] providing visiting PT, OT, RN and home health aid. With pt's permission, licensed clinical social worker to update [facility] on pt's hospitalization and send them the MD orders to resume home health services. Pt states he is pleased with his current living situation and is in contact with [facility] and is on their waiting list when he needs assisted living level of care. Pt shared that he has intermediate care insurance to assist with this level of care when needed. Called [facility] and faxed the requested chart information and orders to resume home health care at discharge.
--- NOTE | 2024-04-14 17:10 | PC.NURSE ---
Shift Summary: Patient pleasant and cooperative. Up with SBA, walker and gait belt. Vitals stable and WNL, afebrile, o2 sat >90% on RA. Up in halls ambulating with SBA. Chronic pain managed with scheduled medication. IV removed with catheter intact. Discharge instructions and follow up reviewed with patient. Discharged via wheelchair @ 1655, family here to transport.
== END 2024-04-14 16:55 | disposition home or self-care (01) | DRG 641 ==
LOC: ED 17:33 → MEDSURG 18:45
PROVIDERS: Family Medicine; Admitting Provider Physician Assistant; Emergency Provider Emergency Medicine Emergency Medical Services; PCP Family Medicine; Visit Provider Family Medicine
DX: E87.1 Hypo-osmolality and hyponatremia (principal); M62.50 Muscle wasting and atrophy, not elsewhere classified, unspecified site; I10 Essential (primary) hypertension; E11.42 Type 2 diabetes mellitus with diabetic polyneuropathy; Z79.84 Long term (current) use of oral hypoglycemic drugs; Z79.82 Long term (current) use of aspirin; G47.00 Insomnia, unspecified; M21.372 Foot drop, left foot; I25.2 Old myocardial infarction; K21.9 Gastro-esophageal reflux disease without esophagitis; F51.04 Psychophysiologic insomnia; M48.062 Spinal stenosis, lumbar region with neurogenic claudication; Z85.46 Personal history of malignant neoplasm of prostate; E78.5 Hyperlipidemia, unspecified; Z87.891 Personal history of nicotine dependence; R06.00 Dyspnea, unspecified; F32.9 Major depressive disorder, single episode, unspecified; I44.0 Atrioventricular block, first degree
CPT/HCPCS: 36415; 71045; 80048; 81001; 82962; 83735; 84295; 84300; 84484; 85025; 85027; 87081; 87631; 93005; 97116; 97161; 97165; 97530; 97535; 99285; A9270; J1650; J2597; J3475; J7030

== ENCOUNTER 2024-04-15 13:55 | Outpatient (CLI) | payer MEDICARE, BC, SELFPAY | END 2024-04-15 13:56 | disposition home or self-care (01) | PROVIDERS: PCP Family Medicine; Visit Provider Family Medicine | DX: M54.16 Radiculopathy, lumbar region (principal); M48.062 Spinal stenosis, lumbar region with neurogenic claudication; M51.369 Other intervertebral disc degeneration, lumbar region without mention of lumbar back pain or lower extremity pain | CPT/HCPCS: 62323; J0702; Q9966 ==

== ENCOUNTER → 2024-04-29 06:56 | Outpatient (RCR) | payer SELFPAY | END | disposition home or self-care (01) | LOC: MOW 04-27 08:42 | PROVIDERS: PCP Family Medicine; Visit Provider Family Medicine | DX: Z76.0 Encounter for issue of repeat prescription (principal) | CPT/HCPCS: S5170 ==